=== PATIENT | female | born 1950 | race Caucasian/White ===

== ENCOUNTER 2022-10-26 17:32 | Emergency (ER) | payer MEDICARE, SELFPAY ==
[2022-10-26 17:34] VITALS: BP 132/81; PULSE 73; RESP 16; TEMP 36.2; O2SAT 98; BMI 30.9
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
[2022-10-26 21:24] VITALS: BP 155/86; PULSE 91; RESP 14; O2SAT 98
--- NOTE | 2022-10-26 21:30 | RAD_ITS ---
STUDY: X-RAY - CERVICAL SPINE REASON FOR EXAM: Female, 72 years old. pain TECHNIQUE: 3 view(s) of the cervical spine were obtained. COMPARISON: None FINDINGS: Normal anterior atlantoaxial articulation. Normal odontoid process. Normal cervical lordosis. No evidence for acute fracture or subluxation. Disc space heights well-maintained. Very minor multilevel endplate spurring. The soft tissue structures are unremarkable. RAD/Cerv Spine 2 or 3 Views IMPRESSION: Mild spondylosis. No acute fracture or other significant bony pathology Electronically Signed: Michael Weaver MD at 21:58 EST ,
[2022-10-26 22:28] VITALS: BP 144/88; PULSE 81; RESP 16; O2SAT 98
[2022-10-26] MEDS: cycloBENZAPRine HCl 10 MG Tablet PO (22:35)
[2022-10-26] MEDS: Lidocaine 5% Patch 1 PATCH TOPICAL (22:35)
== END 2022-10-26 22:40 | disposition home or self-care (01) ==
PROVIDERS: Emergency Provider Emergency Medicine; Visit Provider Emergency Medicine
DX: M54.2 Cervicalgia (principal); Z86.711 Personal history of pulmonary embolism; Z86.718 Personal history of other venous thrombosis and embolism
CPT/HCPCS: 72040; 99282

== ENCOUNTER 2022-11-01 18:24 | Emergency (ER) | payer MEDICARE, SELFPAY ==
[2022-11-01 18:26] VITALS: BP 152/134; PULSE 123; RESP 20; TEMP 36.7; O2SAT 95; BMI 31.4
--- NOTE | 2022-11-01 18:38 | EKG12_ITS ---
Test Reason : CP Blood Pressure : / mmHG Vent. Rate : 113 BPM Atrial Rate : 113 BPM P-R Int : 170 ms QRS Dur : 078 ms QT Int : 326 ms P-R-T Axes : 037 033 059 degrees QTc Int : 447 ms Sinus tachycardia Nonspecific ST abnormality Abnormal ECG Confirmed by NOLBERTO NAVARRO, ANAYELI ([id number]), website/blog editor KATHYA WALKER ([id number]) on 11/04/2022 10:03:48 AM Referred By: VALENTIN Confirmed By:ANAYELI ARVIZU MD
--- NOTE | 2022-11-01 18:40 | EDS_ITS ---
HPI History of Present Illness Chief Complaint: Shortness of Breath Detail of Chief Complaint: Shortness of breath and chest discomfort/congestion Informant: patient Onset/Context/Timing Onset: Days (2) Context: sudden Timing: Continuous Quality: Positive for Dyspnea on exertion and Wheezing; Negative for Orthopnea or PND Current Severity: Mild Maximum Severity: Severe Worsened by: Exertion Relieved by: Nothing Associated Symptoms cough and sweats; Negative for rhinorrhea, post nasal drip, ear pain, fever, sore throat, subjective, chills, clear sputum, white sputum, yellow sputum or green sputum Chest Pain: Positive for Continuous and - (Congestion full sensation right side) Narrative Narrative: Patient is a 72-year-old woman. She has a history of PE right side of her lung. She states her anticoagulant was discontinued August 2022. She denies history of cancer. She has a med port due to poor IV access. She states last week she had respiratory-like symptoms. She has mild congestion at this time. She does endorse shortness of breath. She denies headache, visual, ocular auditory symptoms. Eyes ringing or ears or decreased hearing. She denies sore throat. Minimal nonproductive cough. She does endorse nausea, vomiting and diarrhea. She denies myalgias arthralgias. She denies joint swelling. She denies skin rash. PE Risk Factors: Positive for Prior DVT or PE; Negative for Cancer, OCP + Smoking + > 35, Recent immobilization, Recent surgery or Recent travel Prior similar symptoms: Yes (Pulmonary embolus) Recent Illness/Hospitalization: No PFSH PFSH Medical History Anxiety Depression Hx of deep venous thrombosis Non-smoker Pulmonary embolism Seizures Home Medications cyclobenzaprine 10 mg tablet 10 mg PO TID PRN Muscle Spasm #10 TABLETS 10/26/22 [Rx Last Taken Unknown] hydrocodone-acetaminophen 5-325mg 5mg-325mg 1 tab PO Q6H PRN PRN Pain 3 days #10 TABLETS 10/26/22 [Rx Last Taken Unknown] apixaban 5 mg tablet (Eliquis) 5 mg PO BID #74 tabs 11/01/22 [Rx Last Taken Unknown] Allergy/AdvReac Type Severity Reaction Status Date / Time adhesive tape [tape] Allergy Rash Verified 11/01/22 18:25 butorphanol [From Stadol] Allergy Other Verified 11/01/22 18:25 Penicillins [PCN] Allergy Swelling Verified 11/01/22 18:25 sumatriptan [From Imitrex] Allergy Other Verified 11/01/22 18:25 Surgical History History of cholecystectomy History of orthopedic surgery Hx of hysterectomy Social History Smoking Status: Never smoker ROS ROS ED Constitutional Constitutional ED: Reports sweats; Denies chills, fever(s) or weight loss Eyes Eyes: Denies blurry vision, change in vision or diplopia ENT ENT ED: Reports rhinorrhea; Denies ear pain or sore throat Cardiovascular Cardiovascular: Reports chest pain and racing heartbeat; Denies orthopnea, palpitations or paroxysmal nocturnal dyspnea Respiratory/Chest Respiratory/Chest: Reports cough, dyspnea and dyspnea on exertion; Denies orthopnea, paroxysmal nocturnal dyspnea or sputum Gastrointestinal Gastrointestinal: Reports abdominal pain, diarrhea, nausea and vomiting; Denies constipation or melena Genitourinary Genitourinary ED: Denies dysuria, hematuria or urinary frequency Musculoskeletal Musculoskeletal: Denies arthralgias, back pain, myalgias or neck pain Integumentary Denies Abrasions or rash Neurologic Neurologic: Reports weakness; Denies headache(s) or paresthesias Psychiatric Psychiatric: Reports anxiety and depression; Denies suicidal ideation Endocrine Endocrinology: Denies cold intolerance or heat intolerance Hematologic/Lymphatic Hematologic/Lymphatic: Denies easy bleeding, easy bruising or lymphadenopathy EXAM Physical Exam Const Vital Signs: 11/01/22 18:26 11/01/22 18:32 11/01/22 18:46 Temperature 98.0 F 97.8 F Temperature Source Oral Temporal Pulse Rate 123 H 111 H Respiratory Rate 20 H 18 Respiratory Effort Short of Breath Respiratory Depth Shallow Respiratory Pattern Tachypnea Blood Pressure 152/134 H 133/89 H Blood Pressure Mean 140 103 Pulse Ox 95 96 Oxygen Delivery Method Room Air Room Air 11/01/22 19:31 11/01/22 20:00 Temperature 97.8 F 97.8 F Temperature Source Temporal Temporal Pulse Rate 104 H 101 H Respiratory Rate 18 18 Respiratory Effort Respiratory Depth Respiratory Pattern Blood Pressure 147/78 H 138/78 H Blood Pressure Mean 101 98 Pulse Ox 94 95 Oxygen Delivery Method Room Air Room Air Positive well nourished, well developed and obese Constitutional Narrative: Patient is tachypneic. She appears diaphoretic. General Appearance ED: well developed and pallor Nutritional Appearance: obese HEENT Reports moist mucous membranes HEENT Narrative: Head is atraumatic normocephalic. Ears normal. Nares patent with no discharge. Posterior pharynx is normal. Uvula is midline. Eyes PERRL and EOMs intact bilaterally General Eye ED: Negative for pale conjunctiva or scleral icterus Neck no lymphadenopathy, supple, no meningeal signs and no JVD Neck Narrative: Trachea is midline. There is a spur respiratory sounds that are transmitted to the lung negrete. Resp No normal respiratory effort and clear to auscultation bilaterally Auscultation: Negative for rales, rhonchi or wheezes Cardio regular rhythm, S1 normal heart sound, S2 normal heart sound and no murmurs Rate: tachycardic GI non-tender, non-distended and no masses GI Narrative: There is no palpable pulsatile mass. There is no abdominal bruit. Auscultation: hypoactive bowel sounds Palpation: soft Back/Spine no CVA tenderness and normal to inspection Extremity normal to inspection Extremity Narrative: There is no asymmetry, swelling, discoloration, leg vein distention, palpable cords or tenderness along the distribution of the deep venous system. Neuro oriented x3, CN's II-XII intact bilaterally and no sensory deficits noted Sensorium / Orientation: alert Psych mental status grossly normal Skin no wounds and No skin turgor normal Skin Narrative: Patient is diaphoretic. There is no central or peripheral sign since. General Skin Exam: pallor; Negative for jaundice Lesions: no lesions Rashes: no rashes MDM MDM MDM Narrative Medical decision making narrative: Review of prior records locate patient also has history of DVT. She presently is on no anticoagulant. She was recently seen for neck pain and placed on muscl e relaxant and opiate analgesic. Patient presents with abrupt onset of shortness of breath tachycardia with prior history of PE and DVT need to evaluate for PE. Also need to evaluate for viral illness with possible pneumonia since patient is reporting upper respiratory symptoms as well as vomiting diarrhea. This may represent COVID, influenza or lower lobe bacterial pneumonia. To evaluate patient appropriate labs were obtained i.e. CBC to evaluate for anemia, white count differential, renal function, D-dimer was obtained since she is not PERC negative. Chest x-ray to rule out pneumonia, pneumothorax etc. Patient was referred to Dr. Reji Lares since she is new to the area and does not have a physician. Lab Data Attestation: I reviewed the patient's lab results. Lab results narrative: CBC is unremarkable. Basic metabolic panel reveals hypokalemia, 3.2. Creatinine is 1.14 with a GFR of 50. Glucose is elevated 175 with a normal CO2 and anion gap lactate is upper end of normal, 2.0 D-dimer is elevated 1.6 and is elevated even after correction for age. In light of history of DVT, PE no longer on anticoagulant with shortness of breath, tachycardia will obtain a CTA of the chest to evaluate for pulmonary embolus. Labs: Laboratory Results - last 24 hr 11/01/22 11/01/22 11/01/22 18:43 18:43 18:43 WBC 7.3 RBC 5.34 Hgb 14.5 Hct 45.9 MCV 86.0 MCH 27.2 MCHC 31.6 L RDW Std Deviation 43.8 RDW Coeff of Farzad 13.9 Plt Count 240 MPV 11.6 Immature Gran % (Auto) 0.300 Neut % (Auto) 57.0 Lymph % (Auto) 28.2 [place] % (Auto) 11.4 H Eos % (Auto) 2.5 Baso % (Auto) 0.6 Absolute Neuts (auto) 4.1 Absolute Lymphs (auto) 2.05 Nucleated RBC % 0 D-Dimer Quant (PE/DVT) 1.60 H* Sodium 141 Potassium 3.2 L Chloride 110 H Carbon Dioxide 23.0 Anion Gap 8 BUN 23 H Creatinine 1.14 H Estim Creat Clear Calc 35.80 Est GFR (MDRD) Af Amer 60 Est GFR (MDRD) Non-Af 50 L BUN/Creatinine Ratio 20.2 H Glucose 175 H Lactic Acid Calcium 9.3 Troponin I High Sens 6 11/01/22 18:43 WBC RBC Hgb Hct MCV MCH MCHC RDW Std Deviation RDW Coeff of Farzad Plt Count MPV Immature Gran % (Auto) Neut % (Auto) Lymph % (Auto) [place] % (Auto) Eos % (Auto) Baso % (Auto) Absolute Neuts (auto) Absolute Lymphs (auto) Nucleated RBC % D-Dimer Quant (PE/DVT) Sodium Potassium Chloride Carbon Dioxide Anion Gap BUN Creatinine Estim Creat Clear Calc Est GFR (MDRD) Af Amer Est GFR (MDRD) Non-Af BUN/Creatinine Ratio Glucose Lactic Acid 2.0 Calcium Troponin I High Sens Radiography Diagnostic Testing: Clinical Impression(s) from Imaging Studies Chest X-Ray 11/01/22 18:55 IMPRESSION: Normal x-ray examination of the chest. Electronically Signed: Imtiaz Winston MD at 19:31 EST , Chest CTA 11/01/22 19:32 IMPRESSION: Abnormal CTA chest examination, with a right sided pulmonary embolism. N.B. : The above Results were Read Back by Imtiaz Winston MD to Naman Augustin MD, and understanding confirmed on 11/01/2022 20:56:53 (ET). Electronically Signed: Imtiaz Winston MD at 20:57 EST Reading Location ID and State: [id number] [facility] , Service support , ADDENDUM: 11/01/222103 IMPRESSION: Abnormal CTA chest examination, with a right sided pulmonary embolism. N.B. : The above Results were Read Back by Imtiaz Winston MD to Naman Augustin MD, and understanding confirmed on 11/01/2022 20:56:53 (ET). Electronically Signed: Imtiaz Winston MD at 20:57 EST , Rhythm Strip Rhythm Strip: Sinus Tach Rate: 129 Ectopy: None EKG Initial EKG: Attestation: I personally reviewed and interpreted this EKG as follows: Interpretation: Sinus Tachycardia (Ventricular rate is 113. EKG is not normal. There is nonseptic ST-T wave changes inferior leads. There is elevation in aVR which may suggest multivessel disease. There is also artifact because of her breathing. MN interval is 170 ms. Cures duration 78 ms. QT duration 326 ms. [place] is normal.) Treatment and Re-Evaluation Narrative: Patient has a small PE per radiologist. There is no heart strain. Will treat with anti- . Creatinine is 1.1 with a GFR of greater than 50. Will treat with Eliquis. Discharge Plan Triage Chief Complaint: Shortness of Breath ED Provider: Naman Augustin Dx/Rx/DC Orders Clinical Impression: Pulmonary embolus, Sinus tachycardia, Tachypnea Instructions: Pulmonary Embolism Prescriptions: New Eliquis 5 mg tablet 5 mg PO BID Qty: 74 0RF Rx Instructions: 10 mg twice a day for the first week. Then 5 mg twice a day. No Action cyclobenzaprine 10 mg tablet 10 mg PO TID PRN (Reason: Muscle Spasm) Qty: 10 0RF hydrocodone-acetaminophen 5-325 mg tablet 1 tab PO Q6H PRN PRN (Reason: Pain) 3 Days Qty: 10 0RF Primary Care Provider: Care Physician,No Primary Referrals: Abran Lares MD [Med Staff - Pitch Worker] - 1-2 Weeks Care Physician,No Primary [Primary Care Provider] - Activity Restrictions/Additional Instructions: Referred to Dr. Reji Dhillon since you do not have a local doctor in the area. Disposition Disposition: Home, Self Care
[2022-11-01 18:46] VITALS: BP 133/89; PULSE 111; RESP 18; TEMP 36.6; O2SAT 96
--- NOTE | 2022-11-01 18:55 | RAD_ITS ---
STUDY: X-RAY CHEST REASON FOR EXAM: Female, 72 years old. Chest congestion, dyspnea, TECHNIQUE: Single AP portable view of the chest. COMPARISON: None. FINDINGS: Port on the right extends to the cavoatrial junction The lungs are clear and expanded. There is no demonstrated pleural abnormality. Normal size heart. Normal mediastinum and jesse. Normal visualized pulmonary arteries. Normal visualized aortic arch and descending thoracic aorta. Normal visualized thoracic spine. Normal visualized ribs, clavicles, and shoulders. There is no demonstrated abnormality of the visualized soft tissue structures of the upper abdomen. RAD/Chest 1 View (Portable) IMPRESSION: Normal x-ray examination of the chest. Electronically Signed: Imtiaz Winston MD at 19:31 EST ,
[2022-11-01 19:00] LABS: Absolute Lymphocyte Count 2.05 X10^3/uL (0.83-4.51); Absolute Neutrophil Count 4.1 X10^3/uL (2.0-7.7); Basophil# 0.04 X10^3/uL; Basophil% 0.6 % (0-1); Eosinophil# 0.18 X10^3/uL; Eosinophils% 2.5 % (0-5); Hematocrit 45.9 % (37-47); Hemoglobin 14.5 g/dL (12.0-15.0); Lymphocyte # 2.05 X10^3/ul (0.83-4.51); Lymphocyte % 28.2 % (19-41); Mean Corp Hgb Conc 31.6 g/dL (32-36); Mean Corpuscular Hgb 27.2 pg (27.0-32.0); Mean Platelet Vol. 11.6 fl (6.2-12.0); Monocyte# 0.83 X10^3/uL; Monocyte% 11.4 % (0-10); NRBC Flagged by Analyzer 0 % (0-5); Neutrophil # 4.14 X10^3/uL (2.7-7.7); Platelet Count 240 K/mm3 (150-450); RBC Distribution Width CV 13.9 % (11.6-14.6); RBC Distribution Width SD 43.8 fl (35.1-43.9); Red Blood Count 5.34 M/mm3 (4.2-5.4); White Blood Count 7.3 K/mm3 (4.4-11.0)
[2022-11-01 19:15] LABS: Anion Gap 8 (5-15); BUN 23 mg/dL (7-18); BUN/Creat Ratio 20.2 RATIO (10-20); Calcium,Total 9.3 mg/dL (8.5-10.1); Chloride 110 mmol/L (98-107); Creatinine, Serum 1.14 mg/dL (0.55-1.02); EST Glomerular Filtration Rate 50 mL/min (>60); Est Glom Filt Rate - Afr Amer 60 mL/min (>60); Glucose 175 mg/dL (74-106); Potassium 3.2 mmol/L (3.5-5.1); Sodium Level 141 mmol/L (136-145); Troponin-I HS (w/2H Reflex) 6 pg/mL (3.0-54.0)
[2022-11-01 19:31] VITALS: BP 147/78; PULSE 104; RESP 18; TEMP 36.6; O2SAT 94
--- NOTE | 2022-11-01 19:32 | CT_ITS ---
STUDY: CTA CHEST REASON FOR EXAM: Female, 72 years old. Shortness of breath, tachycardia, elevated D-dimer RADIATION DOSAGE (If Supplied By Facility): CTDIvol = ( 16.85 ) mGy, DLP = ( 442.90 ) mGycm TECHNIQUE: The examination was performed with the intravenous administration of 100mL Isovue-370. Post-processing of the angiographic images was performed, with multiplanar reformation and 3D reconstruction. Individualized dose optimization techniques were used for this CT. COMPARISON: Chest x-ray FINDINGS: Port on the right extends to the cavoatrial junction. Normal enhancement of the main pulmonary artery and right and left pulmonary arteries. There are filling defects involving right mid and lower lung peripheral pulmonary arteries consistent with pulmonary embolism, series 2 images 75/217 and 95/217. Normal thoracic aorta and visualized great vessels. There is no demonstrated aortic dissection. Normal heart and pericardium. The right ventricle the left ventricle ratio is 0.8. Normal mediastinum. Normal hilar regions. Normal visualized trachea and bronchi. The lungs are well expanded. Normal pulmonary parenchyma. Normal pleura. Normal chest wall structures. Normal osseous structures. There are surgical clips in the gallbladder fossa consistent with a prior cholecystectomy. CT/CTA Chest W/WO Contrast IMPRESSION: Abnormal CTA chest examination, with a right sided pulmonary embolism. N.B. : The above Results were Read Back by Imtiaz Winston MD to Naman Augustin MD, and understanding confirmed on 11/01/2022 20:56:53 (ET). Electronically Signed: Imtiaz Winston MD at 20:57 EST ,
[2022-11-01 20:00] VITALS: BP 138/78; PULSE 101; RESP 18; TEMP 36.6; O2SAT 95
[2022-11-01 20:55] LABS: Reflex Troponin-HS? (from REC) Y
[2022-11-01 21:18] VITALS: BP 128/88; PULSE 68; RESP 16; TEMP 36.6; O2SAT 99
[2022-11-01] MEDS: APIXABAN 5 MG TABLET 10 MG PO (21:18)
[2022-11-01 22:54] LABS: Reflex Lactate? Y
== END 2022-11-01 21:19 | disposition home or self-care (01) ==
PROVIDERS: Emergency Provider Emergency Medicine; Visit Provider Emergency Medicine
DX: I26.99 Other pulmonary embolism without acute cor pulmonale (principal)
CPT/HCPCS: 71045; 71275; 80048; 83605; 84484; 85025; 85379; 87428; 93005; 96360; 99285; J7030; Q9967; A4216

== ENCOUNTER 2023-05-24 19:48 | Emergency (ER) | payer MEDICARE, SELFPAY ==
[2023-05-24 19:49] VITALS: BP 131/90; PULSE 120; RESP 18; TEMP 36.7; O2SAT 100; BMI 37.3
--- NOTE | 2023-05-24 20:49 | EDS_ITS ---
HPI History of Present Illness Chief Complaint: Shortness of Breath Narrative Narrative: 72-year-old female states she is a COVID long-hauler from the last time, states that she was diagnosed with COVID over 10 days ago. She started feeling symptoms on last Monday, then felt really bad on Monday. She tested positive for COVID at that time. She then tested again on the following 7 days ago. She had diarrhea that resolved. Past medical history includes depression and anxiety and she takes Eliquis for blood clots. She feels that she is dehydrated. She denies any nausea or vomiting. She had subjective fever. She states she called the nurse hotline and was sent to the emergency department with suspicion for dehydration. She states she feels generally weak. PFSH PFSH Medical History Anxiety Depression Hx of deep venous thrombosis Non-smoker Pulmonary embolism Seizures Home Medications cyclobenzaprine 10 mg tablet 10 mg PO TID PRN Muscle Spasm #10 TABLETS 10/26/22 [Rx Last Taken Unknown] apixaban 5 mg tablet (Eliquis) 5 mg PO BID #74 tabs 11/01/22 [Rx Last Taken Unknown] buspirone 5 mg tablet 5 mg PO TID 05/24/23 [History Last Taken Unknown] pregabalin 200 mg capsule 200 mg PO Q8H 05/24/23 [History Last Taken Unknown] quetiapine 100 mg tablet 100 mg PO DAILY 05/24/23 [History Last Taken Unknown] venlafaxine 150 mg capsule,extended release 24 hr 150 mg PO DAILY 05/24/23 [History Last Taken Unknown] Allergy/AdvReac Type Severity Reaction Status Date / Time adhesive tape [tape] Allergy Rash Verified 05/24/23 19:52 butorphanol [From Stadol] Allergy Other Verified 05/24/23 19:52 Penicillins [PCN] Allergy Swelling Verified 05/24/23 19:52 sumatriptan [From Imitrex] Allergy Other Verified 05/24/23 19:52 Surgical History History of cholecystectomy History of orthopedic surgery Hx of hysterectomy Previous back surgery Social History Smoking Status: Never smoker ROS ROS ED ROS Narrative Constitutional: Subjective fever, no chills. Generalized weakness. Feels dehydrated. HEENT: No sore throat. No neck pain. No loss of vision. No rhinorrhea. Cardiovascular: No chest pain. No palpitations. No pedal edema. Respiratory: No cough, occasional shortness of breath. Abdominal: No abdominal pain. No nausea. No vomiting. Diarrhea-resolved Genitourinary: No dysuria. No hematuria. Musculoskeletal: No myalgias. No arthralgias. Neurologic: No headaches. No dizziness. No lightheadedness. Skin: No rash. No change in color. Psychiatric: No depression. No anxiety. EXAM Physical Exam Narrative Exam Narrative: Afebrile. Vital signs noted. HEENT: Normocephalic. Atraumatic. PERRL, EOMI. Neck soft and supple. No point tenderness or step off. Cardiovascular: Positive tachycardia, no murmurs, rubs, or gallops appreciated. Respiratory: No tachypnea. Lungs clear to auscultation bilaterally. Gastrointestinal: Abdomen soft, nontender, with normoactive bowel sounds. No rebound or guarding. Neurological: Awake. Alert. Nonfocal, nonlateralizing. Skin: No rash. Normal color. No pallor. Musculoskeletal: No pedal edema. Full range of motion extremities. Const Vital Signs: 05/24/23 19:49 05/24/23 19:59 05/24/23 21:55 Temperature 98.1 F 98.4 F Temperature Source Temporal Oral Pulse Rate 120 H 96 Respiratory Rate 18 16 Respiratory Effort Short of Breath Respiratory Depth Normal Respiratory Pattern Normal Blood Pressure 131/90 H 110/79 Blood Pressure Mean 103 89 Pulse Ox 100 93 Oxygen Delivery Method Room Air Room Air MDM MDM MDM Narrative Medical decision making narrative: In the differential diagnosis is longstanding COVID, pneumonia, dehydration. While she may have pulmonary emboli, she is already on Eliquis for this. This is lower the differential as her pulse ox is 100% on room air. Her symptoms are resolving of COVID-19 and she is no longer having diarrhea. I do not feel that any antivirals are indicated. I will obtain a chest x-ray to see if she has a COVID-pneumonia as she complained to triage that she was short of breath at times. Additionally, will obtain CBC and BMP to look for dehydration. She was bolused IV fluids. She was administered 1 L. I reviewed her laboratory work from today and she has normal white count of 6.4, hemoglobin 13.1, hematocrit 42.1, platelet count normal at 227. Sodium is normal at 142 but she has a hypokalemia of 3.0. It seems that she has had hypokalemia in the past. BUN is normal at 11 with creatinine 1.06. Glucose is appropriately elevated at 118 with a normal anion gap of 7. Urine is negative for infection and negative for ketones. I do not feel she is profoundly dehydrated. I do not feel antibiotics are indicated. Chest x-ray in 1 view interpreted by myself independently shows no evidence of an acute pneumothorax or pneumonia. I do not feel she requires observation. Her potassium was replaced orally with 40 mill equivalents. I feel she be discharged safely home with follow-up to her primary care provider. Repeat examination shows she is no longer tachycardic and has a heart rate of 96. Return instructions to the emergency department were reviewed. Disposition is discharged home in stable condition. History & Record Review Discussion w/independent historian: Patient Additional record(s) reviewed:: Prior labs Lab Data Attestation: I reviewed the patient's lab results. Labs: Laboratory Results - last 24 hr 05/24/23 21:35 WBC 6.4 RBC 5.12 Hgb 13.1 Hct 42.1 MCV 82.2 MCH 25.6 L MCHC 31.1 L RDW Std Deviation 45.7 H RDW Coeff of Farzad 15.3 H Plt Count 227 MPV 11.7 Immature Gran % (Auto) 0.300 Neut % (Auto) 53.6 Lymph % (Auto) 34.3 [place] % (Auto) 9.6 Eos % (Auto) 1.6 Baso % (Auto) 0.6 Absolute Neuts (auto) 3.4 Absolute Lymphs (auto) 2.18 Nucleated RBC % 0 Sodium 142 Potassium 3.0 L Chloride 110 H Carbon Dioxide 25.0 Anion Gap 7 BUN 11 Creatinine 1.06 H Estim Creat Clear Calc 36.73 Est GFR (MDRD) Af Amer 66 Est GFR (MDRD) Non-Af 54 L BUN/Creatinine Ratio 10.4 Glucose 118 H Calcium 8.7 Urine Color Yellow Urine Clarity Clear Urine pH 6.0 Ur Specific [place] 1.010 Urine Protein Negative Urine Glucose (UA) Normal Urine Ketones Negative Urine Occult Blood Negative Urine Nitrite Negative Urine Bilirubin Negative Urine Urobilinogen Normal Ur Leukocyte Esterase Negative Urine RBC 0 SEEN Urine WBC 0 SEEN Ur Squamous Epith Cells 0-5 SEEN Urine Bacteria RARE Urine Mucus 0 SEEN Radiography Chest X-Ray - ED: 1 View, Read by ED Physician and No Acute Disease Discharge Plan Triage Chief Complaint: Shortness of Breath ED Provider: Matt Fishman Dx/Rx/DC Orders Clinical Impression: COVID, SOB (shortness of breath), Generalized weakness, Hypokalemia Instructions: Coronavirus Disease 2019 (COVID-19): Caring for Yourself or Others, ED Dyspnea, ED Hypokalemia, ED Weakness (Uncertain Cause) Prescriptions: No Action cyclobenzaprine 10 mg tablet 10 mg PO TID PRN (Reason: Muscle Spasm) Qty: 10 0RF Eliquis 5 mg tablet 5 mg PO BID Qty: 74 0RF Rx Instructions: 10 mg twice a day for the first week. Then 5 mg twice a day. quetiapine 100 mg tablet 100 mg PO DAILY venlafaxine 150 mg capsule,extended release 24hr 150 mg PO DAILY buspirone 5 mg tablet 5 mg PO TID pregabalin 200 mg capsule 200 mg PO Q8H Primary Care Provider: Care Physician,No Primary Referrals: Care Physician,No Primary [Primary Care Provider] - Activity Restrictions/Additional Instructions: Follow-up with your primary care physician in approximately 1 week if worsening. See if you can get an appointment before your scheduled appointment in October. Disposition Disposition: Home, Self Care
--- NOTE | 2023-05-24 21:03 | RAD_ITS ---
EXAM: XR CHEST, 1 VIEW CLINICAL INDICATION: Shortness of breath TECHNIQUE: Frontal view of the chest. COMPARISON: 11/01/2022 FINDINGS: LUNGS AND PLEURAL SPACES: No significant abnormality. No consolidation or edema. No pneumothorax. No effusion. HEART: No significant abnormality. Cardiac silhouette not enlarged. MEDIASTINUM: Central airways and mediastinal contour are unremarkable. BONES/JOINTS: Degenerative changes in the spine. SOFT TISSUES: No significant abnormality. TUBES, LINES AND DEVICES: Right-sided chest port. RAD/Chest 1 View (Portable) IMPRESSION: No acute findings in the chest. Electronically Signed: Steve Cervantes DO at 21:15 EDT ,
[2023-05-24 21:54] LABS: Mucous, Urine 0 SEEN /hpf (<or=2+); Red Blood Cells-Urine 0 SEEN /hpf (0-5); White Blood Cells 0 SEEN /hpf (0-5)
[2023-05-24 21:55] VITALS: BP 110/79; PULSE 96; RESP 16; TEMP 36.9; O2SAT 93
[2023-05-24] MEDS: 0.9% Normal Saline 1,000 ML 1000 ML IV (21:55)
[2023-05-24 21:56] LABS: Color, Urine Yellow (Yellow); Glucose, Dipstick Normal (Normal); Ketone-Dipstick Negative (Negative); Leukocyte Esterase-Dipstick Negative /ul (Negative); Nitrite-Dipstick Negative (Negative); Occult Blood-Urine Negative /ul (Negative); Protein-Dipstick Negative (Negative); Urine Bilirubin Dipstick Negative (Negative); Urine Clarity Clear (Clear); Urine Urobilinogen Normal (Normal)
[2023-05-24 21:57] LABS: Absolute Lymphocyte Count 2.18 X10^3/uL (0.83-4.51); Absolute Neutrophil Count 3.4 X10^3/uL (2.0-7.7); Basophil# 0.04 X10^3/uL; Basophil% 0.6 % (0-1); Eosinophils% 1.6 % (0-5); Hematocrit 42.1 % (37-47); Hemoglobin 13.1 g/dL (12.0-15.0); Lymphocyte # 2.18 X10^3/ul (0.83-4.51); Lymphocyte % 34.3 % (19-41); Mean Corp Hgb Conc 31.1 g/dL (32-36); Mean Corpuscular Hgb 25.6 pg (27.0-32.0); Mean Corpuscular Volume 82.2 fL (81-99); Mean Platelet Vol. 11.7 fl (6.2-12.0); Monocyte# 0.61 X10^3/uL; Monocyte% 9.6 % (0-10); NRBC Flagged by Analyzer 0 % (0-5); Neutrophil % 53.6 % (47-70); Platelet Count 227 K/mm3 (150-450); RBC Distribution Width CV 15.3 % (11.6-14.6); RBC Distribution Width SD 45.7 fl (35.1-43.9); Red Blood Count 5.12 M/mm3 (4.2-5.4); White Blood Count 6.4 K/mm3 (4.4-11.0)
[2023-05-24 22:06] LABS: Bacteria RARE /hpf (None Seen); Squamous Epithelial Cells - UA 0-5 SEEN /hpf (5-10)
[2023-05-24 22:11] LABS: Anion Gap 7 (5-15); BUN 11 mg/dL (7-18); BUN/Creat Ratio 10.4 RATIO (10-20); Calcium,Total 8.7 mg/dL (8.5-10.1); Chloride 110 mmol/L (98-107); Creatinine, Serum 1.06 mg/dL (0.55-1.02); EST Glomerular Filtration Rate 54 mL/min (>60); Est Glom Filt Rate - Afr Amer 66 mL/min (>60); Estimated Creatinine Clearance 36.73 ml/min; Glucose 118 mg/dL (74-106); Sodium Level 142 mmol/L (136-145)
[2023-05-24] MEDS: Potassium Chloride Oral Tablet 20 MEQ 40 MEQ PO (22:23)
== END 2023-05-24 22:53 | disposition home or self-care (01) ==
PROVIDERS: Emergency Provider Emergency Medicine; Visit Provider Emergency Medicine
DX: U07.1 COVID-19 (principal); R06.02 Shortness of breath; R53.1 Weakness; E87.6 Hypokalemia; F41.9 Anxiety disorder, unspecified; F32.A Depression, unspecified; Z79.01 Long term (current) use of anticoagulants; Z79.899 Other long term (current) drug therapy; Z86.711 Personal history of pulmonary embolism; Z86.718 Personal history of other venous thrombosis and embolism
CPT/HCPCS: 71045; 80048; 81001; 85025; 93005; 96360; 99284; J7030; A4216

== ENCOUNTER 2023-08-09 12:38 | Inpatient (IN) | payer MEDICARE, SELFPAY ==
[2023-08-09] VITALS (12 sets, daily range): BP systolic 92–166; BP diastolic 53–91; PULSE 87–107; RESP 14–22; TEMP 36.2–37.9; O2SAT 93–99; BMI 38.5; BMI 38.7
--- NOTE | 2023-08-09 12:41 | EKG12_ITS ---
Test Reason : CP Blood Pressure : / mmHG Vent. Rate : 105 BPM Atrial Rate : 105 BPM P-R Int : 168 ms QRS Dur : 070 ms QT Int : 362 ms P-R-T Axes : 026 029 029 degrees QTc Int : 478 ms Sinus tachycardia Possible Inferior infarct , age undetermined Abnormal ECG Confirmed by NOLBERTO NAVARRO, ANAYELI ([id number]), editor managing director KATHYA WALKER ([id number]) on 08/16/2023 11:46:28 AM Referred By: AR/RU Confirmed By:ANAYELI ARVIZU MD
--- NOTE | 2023-08-09 13:16 | CT_ITS ---
We are attempting to reach an attending provider to discuss findings. An addendum with communication details will be sent when the communication is complete. STUDY: CTA CHEST REASON FOR EXAM: Female, 72 years old. chest pain RADIATION DOSAGE (If Supplied By Facility): CTDIvol = ( 10.24 ) mGy, DLP = ( 486.86 ) mGycm TECHNIQUE: The examination was performed with the intravenous administration of IV 100mL Isovue-370. Post-processing of the angiographic images was performed, with multiplanar reformation and 3D reconstruction. Individualized dose optimization techniques were used for this CT. COMPARISON: Chest x-ray August 09, 2023. CTA chest from the 2022. FINDINGS: Normal enhancement of the main pulmonary artery and right and left pulmonary arteries. Right lower lobe segmental filling defect no evidence of right ventricular strain. Normal thoracic aorta and visualized great vessels. There is no demonstrated aortic dissection. Normal heart and pericardium. Normal mediastinum. Normal hilar regions. Normal visualized trachea and bronchi. Right lower lobe subsegmental atelectasis and ill-defined groundglass opacity right middle lobe. Normal pulmonary parenchyma. Normal pleura. Normal chest wall structures. Normal osseous structures. Normal visualized upper abdomen. CT/CTA Chest W/WO Contrast IMPRESSION: Right lower lobe pulmonary embolus. Groundglass opacity right middle lobe appears nonspecific. Electronically Signed: Billy Chan MD at 16:52 EST ,
[2023-08-09] MEDS: HYDROcodone Bitartrate/Apap 5/325 Tablet PO (13:44)
[2023-08-09 13:48] LABS: Absolute Lymphocyte Count 1.45 X10^3/uL (0.83-4.51); Absolute Neutrophil Count 5.6 X10^3/uL (2.0-7.7); Basophil# 0.03 X10^3/uL; Basophil% 0.4 % (0-1); Eosinophil# 0.07 X10^3/uL; Eosinophils% 0.9 % (0-5); Hematocrit 37.9 % (37-47); Hemoglobin 11.7 g/dL (12.0-15.0); Lymphocyte # 1.45 X10^3/ul (0.83-4.51); Lymphocyte % 19.2 % (19-41); Mean Corp Hgb Conc 30.9 g/dL (32-36); Mean Corpuscular Hgb 25.8 pg (27.0-32.0); Mean Corpuscular Volume 83.5 fL (81-99); Mean Platelet Vol. 11.9 fl (6.2-12.0); Monocyte# 0.41 X10^3/uL; Monocyte% 5.4 % (0-10); NRBC Flagged by Analyzer 0 % (0-5); Neutrophil # 5.56 X10^3/uL (2.7-7.7); Neutrophil % 73.7 % (47-70); Platelet Count 200 K/mm3 (150-450); RBC Distribution Width CV 15.4 % (11.6-14.6); RBC Distribution Width SD 46.9 fl (35.1-43.9); Red Blood Count 4.54 M/mm3 (4.2-5.4); White Blood Count 7.6 K/mm3 (4.4-11.0)
--- NOTE | 2023-08-09 14:05 | RAD_ITS ---
STUDY: X-RAY CHEST REASON FOR EXAM: Female, 72 years old. Chest pain TECHNIQUE: Single AP portable view of the chest. COMPARISON: Comparison is made with prior study dated May 24, 2023. FINDINGS: A right-sided Port-A-Cath is seen with the tip at the junction of the superior vena cava and right atrium. EKG electrodes are seen. The lungs are clear and expanded. There is no demonstrated pleural abnormality. Normal size heart. Normal mediastinum and jesse. Normal visualized pulmonary arteries. Normal visualized aortic arch and descending thoracic aorta. There are degenerative changes of the visualized thoracic spine. Normal visualized ribs, clavicles, and shoulders. There is no demonstrated abnormality of the visualized soft tissue structures of the upper abdomen. RAD/Chest 1 View (Portable) IMPRESSION: Stable examination. Electronically Signed: Ben Merrill MD at 15:03 EST ,
[2023-08-09 14:07] LABS: International Normalized Ratio 0.9; Prothrombin Time (Protime)PT. 12.5 SECONDS (11.7-14.9)
[2023-08-09 14:13] LABS: Anion Gap 11 (5-15); BUN 11 mg/dL (7-18); BUN/Creat Ratio 9.6 RATIO (10-20); Calcium,Total 7.7 mg/dL (8.5-10.1); Chloride 109 mmol/L (98-107); Creatinine, Serum 1.14 mg/dL (0.55-1.02); EST Glomerular Filtration Rate 50 mL/min (>60); Est Glom Filt Rate - Afr Amer 60 mL/min (>60); Estimated Creatinine Clearance 34.16 ml/min; Glucose 151 mg/dL (74-106); Potassium 2.6 mmol/L (3.5-5.1); Sodium Level 146 mmol/L (136-145); Troponin-I HS (w/2H Reflex) 6 pg/mL (3.0-54.0)
--- NOTE | 2023-08-09 15:22 | ED.VIS.CHEST ---
HPI History of Present Illness Chief Complaint: Chest Pain Narrative Narrative: 72-year-old female presents with chest pain and back pain that she has had since last evening. She states she developed a fever but took Tylenol today. She had cough occasionally productive of phlegm. She complains of anterior chest pain and lower lung pain bilaterally. No nausea or vomiting. No diarrhea or other symptoms. She presents because the pain in her chest and in her back. She denies any tearing sensation, no exacerbating or alleviating factors. PFSH PFSH Medical History Anxiety Depression Hx of deep venous thrombosis Non-smoker Pulmonary embolism Seizures Home Medications cyclobenzaprine 10 mg tablet 10 mg PO TID PRN Muscle Spasm #10 TABLETS 10/26/22 [Rx Last Taken Unknown] apixaban 5 mg tablet (Eliquis) 5 mg PO BID #74 tabs 11/01/22 [Rx Last Taken Unknown] buspirone 5 mg tablet 5 mg PO TID 05/24/23 [History Last Taken Unknown] pregabalin 200 mg capsule 200 mg PO Q8H 05/24/23 [History Last Taken Unknown] quetiapine 100 mg tablet 100 mg PO DAILY 05/24/23 [History Last Taken Unknown] venlafaxine 150 mg capsule,extended release 24 hr 150 mg PO DAILY 05/24/23 [History Last Taken Unknown] Allergy/AdvReac Type Severity Reaction Status Date / Time adhesive tape [tape] Allergy Rash Verified 08/09/23 12:40 butorphanol [From Stadol] Allergy Other Verified 08/09/23 12:40 Penicillins [PCN] Allergy Swelling Verified 08/09/23 12:40 sumatriptan [From Imitrex] Allergy Other Verified 08/09/23 12:40 Surgical History History of cholecystectomy History of orthopedic surgery Hx of hysterectomy Previous back surgery Social History Smoking Status: Never smoker ROS ROS ED ROS Narrative Constitutional: No fever, no chills. HEENT: No sore throat. No neck pain. No loss of vision. No rhinorrhea. Cardiovascular: Positive anterior chest pain. No palpitations. No pedal edema. Respiratory: No cough, no shortness of breath. Abdominal: No abdominal pain. No nausea. No vomiting. Genitourinary: No dysuria. No hematuria. Musculoskeletal: No myalgias. No arthralgias. Positive mid to lower thoracic back pain. Neurologic: No headaches. No dizziness. No lightheadedness. Skin: No rash. No change in color. Psychiatric: No depression. No anxiety. EXAM Physical Exam Narrative Exam Narrative: Afebrile. Vital signs noted. HEENT: Normocephalic. Atraumatic. PERRL, EOMI. Neck soft and supple. No point tenderness or step off. Cardiovascular: Intermittent tachycardia. No murmurs, rubs, or gallops appreciated. Respiratory: No tachypnea. Lungs clear to auscultation bilaterally. Gastrointestinal: Abdomen soft, nontender, with normoactive bowel sounds. No rebound or guarding. Neurological: Awake. Alert. Nonfocal, nonlateralizing. Skin: No rash. Normal color. No pallor. Musculoskeletal: No pedal edema. Full range of motion extremities. Const Vital Signs: 08/09/23 12:38 08/09/23 12:56 08/09/23 12:56 Temperature 97.2 F L Temperature Source Temporal Pulse Rate 107 H 101 H Respiratory Rate 16 22 H Respiratory Effort Blood Pressure 127/84 H 135/75 H Blood Pressure Mean 98 95 Pulse Ox 96 96 94 Oxygen Delivery Method Room Air Room Air Room Air 08/09/23 12:58 08/09/23 14:00 Temperature Temperature Source Pulse Rate 106 H Respiratory Rate 20 H Respiratory Effort Short of Breath Blood Pressure 92/57 L Blood Pressure Mean 68 Pulse Ox 96 Oxygen Delivery Method Room Air Heart Score History: Slightly/Non-Suspicious ECG: Normal Age: >/= 65 years Risk Factors: 1 or 2 Risk Factors Troponin: </= Normal Limit Score: 3 MDM MDM MDM Narrative Medical decision making narrative: Chest pain protocol orders were entered. Concern would be for ACS versus aortic dissection versus pulmonary embolism versus pneumonia. I have low concern for aortic dissection as she does not have tearing back pain and she has equal pulses bilaterally. EKG obtained and interpreted by myself independently shows sinus tachycardia at 105 bpm without ectopy or acute ST changes. No significant change from May 24, 2023. She complained of pain with coughing as well. She was given 1 [place] tablet here in the emergency department. I reviewed her laboratory work and she has a normal white count of 7.6, hemoglobin stable at 11.7. Platelet count normal at 200. Coagulation studies are negative with an INR of 0.9, BMP shows sodium slightly elevated at 146 with potassium low at 2.6. This will be replaced orally with 40 mill equivalents and intravenously with 40 mill equivalents. She seems to have a chronically low potassium but she states she is not on diuretics. Chloride is slightly elevated at 109 consistent with mild dehydration with a BUN of 11 and a creatinine of 1.14. Glucose is appropriately elevated at 151 and she has a normal anion gap of 11. Initial high-sensitivity troponin is 6. Chest x-ray in 1 view interpreted by myself independently shows no evidence of pneumonia or pneumothorax. No feel antibiotics are indicated. However given her tachycardia CTA will be obtained and is currently pending. Upon repeat examination, she is resting comfortably looking at her cellular telephone. I reviewed her medications and she is already on Eliquis so I have lower suspicion for pulmonary embolism. Her potassium will be replaced as mentioned before hand. Afterwards, I do feel she would be able to be discharged safely home with follow-up. This is pending reevaluation by the oncoming physician Dr. Florez. Disposition is pending. Patient is in stable condition. Lab Data Labs: Laboratory Results - last 24 hr 08/09/23 13:35 WBC 7.6 RBC 4.54 Hgb 11.7 L Hct 37.9 MCV 83.5 MCH 25.8 L MCHC 30.9 L RDW Std Deviation 46.9 H RDW Coeff of Farzad 15.4 H Plt Count 200 MPV 11.9 Immature Gran % (Auto) 0.400 Neut % (Auto) 73.7 H Lymph % (Auto) 19.2 [place] % (Auto) 5.4 Eos % (Auto) 0.9 Baso % (Auto) 0.4 Absolute Neuts (auto) 5.6 Absolute Lymphs (auto) 1.45 Nucleated RBC % 0 PT 12.5 INR 0.9 Sodium 146 H Potassium 2.6 L* Chloride 109 H Carbon Dioxide 26.0 Anion Gap 11 BUN 11 Creatinine 1.14 H Estim Creat Clear Calc 34.16 Est GFR (MDRD) Af Amer 60 Est GFR (MDRD) Non-Af 50 L BUN/Creatinine Ratio 9.6 L Glucose 151 H Calcium 7.7 L Troponin I High Sens 6 Radiography Diagnostic Testing: Clinical Impression(s) from Imaging Studies Chest X-Ray 08/09/23 14:05 IMPRESSION: Stable examination. Electronically Signed: Ben Merrill MD at 15:03 EST , Discharge Plan Triage Chief Complaint: Chest Pain ED Provider: Matt Fishman Dx/Rx/DC Orders Prescriptions: No Action cyclobenzaprine 10 mg tablet 10 mg PO TID PRN (Reason: Muscle Spasm) Qty: 10 0RF Eliquis 5 mg tablet 5 mg PO BID Qty: 74 0RF Rx Instructions: 10 mg twice a day for the first week. Then 5 mg twice a day. quetiapine 100 mg tablet 100 mg PO DAILY venlafaxine 150 mg capsule,extended release 24hr 150 mg PO DAILY buspirone 5 mg tablet 5 mg PO TID pregabalin 200 mg capsule 200 mg PO Q8H Primary Care Provider: Care Physician,No Primary Referrals: Care Physician,No Primary [Primary Care Provider] -
[2023-08-09 15:39] LABS: Reflex Troponin-HS? (from REC) Y
[2023-08-09] MEDS: Potassium Chloride Oral Tablet 20 MEQ 40 MEQ PO (15:42)
[2023-08-09] MEDS: KCL 40mEq in 0.9% NS 40 MEQ/1,000 ML IV.SOLN 125 MEQ IV ×2 (15:54→23:57)
[2023-08-09 16:33] LABS: Troponin-I HS 5 pg/mL (3.0-54.0)
[2023-08-09] MEDS: oxyCODONE 5 MG Tablet PO (17:37)
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
[2023-08-09] MEDS: APIXABAN 5 MG TABLET 10 MG PO (18:13)
[2023-08-09 18:47] LABS: BNP,B-Type NATRIURETIC PEPTIDE 38.6 pg/mL (0-100)
[2023-08-09] MEDS: 0.9% Saline Lock 10 ML Syringe IV ×2 (20:29→23:57)
[2023-08-09 20:34] LABS: Procalcitonin 0.05 ng/mL (0.00-0.09)
[2023-08-09] MEDS: guaiFENesin 10 ML UDC (200MG/10ML) 20 ML PO (20:52)
[2023-08-09] MEDS: Pregabalin 50 MG Capsule 200 MG PO (20:53)
[2023-08-09] MEDS: busPIRone 5 MG Tablet PO (20:53)
[2023-08-09] MEDS: cycloBENZAPRine HCl 10 MG Tablet PO (20:54)
[2023-08-09] MEDS: QUEtiapine 100 MG Tablet PO (20:54)
[2023-08-09] MEDS: MELATONIN 3 MG TABLET PO (20:54)
[2023-08-10] MEDS: oxyCODONE 5 MG Tablet PO ×3 (00:04→15:06)
[2023-08-10 02:14] VITALS: BMI 39.3
[2023-08-10 03:12] VITALS: BP 116/80; PULSE 82; RESP 18; TEMP 36.4; O2SAT 95
[2023-08-10 05:35] LABS: Absolute Lymphocyte Count 2.16 X10^3/uL (0.83-4.51); Absolute Neutrophil Count 5.8 X10^3/uL (2.0-7.7); Basophil# 0.03 X10^3/uL; Basophil% 0.3 % (0-1); Eosinophil# 0.09 X10^3/uL; Hematocrit 34.4 % (37-47); Hemoglobin 10.5 g/dL (12.0-15.0); Lymphocyte # 2.16 X10^3/ul (0.83-4.51); Lymphocyte % 24.7 % (19-41); Mean Corp Hgb Conc 30.5 g/dL (32-36); Mean Corpuscular Hgb 25.9 pg (27.0-32.0); Mean Corpuscular Volume 84.9 fL (81-99); Mean Platelet Vol. 12.5 fl (6.2-12.0); NRBC Flagged by Analyzer 0 % (0-5); Neutrophil # 5.76 X10^3/uL (2.7-7.7); Neutrophil % 65.8 % (47-70); POSITIVE COUNT YES; Platelet Count 152 K/mm3 (150-450); RBC Distribution Width CV 15.8 % (11.6-14.6); RBC Distribution Width SD 48.3 fl (35.1-43.9); Red Blood Count 4.05 M/mm3 (4.2-5.4); White Blood Count 8.8 K/mm3 (4.4-11.0)
[2023-08-10 06:09] LABS: Differential Indicated SCAN CRITERIA MET
[2023-08-10] MEDS: busPIRone 5 MG Tablet PO ×3 (06:20→21:33)
[2023-08-10] MEDS: Pregabalin 50 MG Capsule 200 MG PO ×3 (06:20→21:33)
[2023-08-10 06:39] LABS: Differential Comment SCANNED; Platelet Estimate ADEQUATE (ADEQ); Platelet Morphology LARGE
[2023-08-10] MEDS: Budesonide Respules 0.5 MG/2 ML AMPUL.NEB. INHALATION ×2 (07:04→20:19)
[2023-08-10 07:05] VITALS: PULSE 75; RESP 18; O2SAT 96
[2023-08-10 07:51] LABS: ALB/GLOB Ratio 0.9 RATIO (0.9-2.4); AST(SGOT) 55 U/L (15-37); Alanine Aminotransfer ALT/SGPT 37 U/L (13-56); Albumin, Serum 2.6 g/dL (3.2-5.0); Alkaline Phosphatase 164 U/L (45-117); Anion Gap 2 (5-15); BUN 12 mg/dL (7-18); BUN/Creat Ratio 11.7 RATIO (10-20); Calcium,Total 7.5 mg/dL (8.5-10.1); Chloride 114 mmol/L (98-107); Creatinine, Serum 1.03 mg/dL (0.55-1.02); EST Glomerular Filtration Rate 56 mL/min (>60); Est Glom Filt Rate - Afr Amer 68 mL/min (>60); Glucose 114 mg/dL (74-106); Potassium 4.2 mmol/L (3.5-5.1); Protein, Total 5.6 g/dL (6.4-8.2); Sodium Level 144 mmol/L (136-145)
[2023-08-10] MEDS: KCL 40mEq in 0.9% NS 40 MEQ/1,000 ML IV.SOLN 125 MEQ IV ×2 (08:23→16:32)
[2023-08-10 08:37] VITALS: BP 131/65; PULSE 87; RESP 17; TEMP 36.8; O2SAT 96
[2023-08-10] MEDS: APIXABAN 5 MG TABLET 10 MG PO ×2 (08:45→21:34)
[2023-08-10] MEDS: Venlafaxine XR 150 MG Capsule PO (08:46)
[2023-08-10 09:13] LABS: Hemoglobin A1c 5.6 % (3.8-5.6)
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
[2023-08-10 15:01] VITALS: BP 136/61; PULSE 85; RESP 17; TEMP 36.8; O2SAT 97
--- NOTE | 2023-08-10 16:00 | PCM.PN.HOSP ---
Reason for Visit Reason for Visit: Diagnoses Other pulmonary embolism without acute cor pulmonale (08/09/23) Subjective Subjective Patient admitted yesterday for acute right lower lobe PE with symptoms of cough and mild chest pain. No acute events overnight. Patient seen at bedside this morning. Sitting comfortably in bed, conversing normally, no distress. Satting well on room air, no increased work of breathing noted. Patient reports continued cough and chest pain, similar to yesterday. States her symptoms are very manageable at this time. She does feel somewhat weaker than her baseline at this time. She also states she has had mild difficulty swallowing due to significant throat pain due to recent coughing. She otherwise denies any fevers or chills or shortness of breath. No other acute concerns this morning. Objective Data Objective Data Vital Signs: Vital Signs Temp Pulse Resp BP Pulse Ox O2 Del Method 98.2 F 85 17 136/61 H 97 Room Air 08/10/23 15:01 08/10/23 15:01 08/10/23 15:01 08/10/23 15:01 08/10/23 15:01 08/10/23 15:08 Oxygen Delivery Method Room Air Weight: 94.5 kg Body Mass Index (BMI) 39.3 Intake & Output: Intake and Output for Last 24 Hours 08/08/23 08/09/23 08/10/23 23:59 23:59 23:59 Intake Total 1000 / 1000 1720 / 1720 Balance 1000 / 1000 1720 / 1720 Lab / Micro Data 08/10/23 05:20 08/10/23 05:20 Labs: Laboratory Results - last 24 hr 08/09/23 13:35: B-Natriuretic Peptide 38.6 08/09/23 16:06: Magnesium 2.0, Troponin I High Sens 5 08/09/23 19:39: Procalcitonin 0.05 08/10/23 05:20: WBC 8.8, RBC 4.05 L, Hgb 10.5 L, Hct 34.4 L, MCV 84.9, MCH 25.9 L, MCHC 30.5 L, RDW Std Deviation 48.3 H, RDW Coeff of Farzad 15.8 H, Plt Count 152, MPV 12.5 H, Immature Gran % (Auto) 0.200, Neut % (Auto) 65.8, Lymph % (Auto) 24.7, Yell % (Auto) 8.0, Eos % (Auto) 1.0, Baso % (Auto) 0.3, Absolute Neuts (auto) 5.8, Absolute Lymphs (auto) 2.16, Nucleated RBC % 0, Differential Comment SCANNED, Platelet Estimate ADEQUATE, Plt Morphology Comment LARGE, Sodium 144, Potassium 4.2, Chloride 114 H, Carbon Dioxide 28.0, Anion Gap 2 L, BUN 12, Creatinine 1.03 H, Estim Creat Clear Calc 37.80, Est GFR (MDRD) Af Amer 68, Est GFR (MDRD) Non-Af 56 L, BUN/Creatinine Ratio 11.7, Glucose 114 H, Hemoglobin A1c 5.6, Calcium 7.5 L, Total Bilirubin 0.40, AST 55 H, ALT 37, Alkaline Phosphatase 164 H, Total Protein 5.6 L, Albumin 2.6 L, Globulin 3.0, Albumin/Globulin Ratio 0.9 Micro: Microbiology 08/09/23 22:25 Mucosa - Nasopharyngeal Coronavirus COVID-19 PCR - Final 08/09/23 22:25 Mucosa - Nasopharyngeal Respiratory Panel (PCR) - Final 08/09/23 13:35 Nasal Secretion SARS-CoV-2 & FLU Antigen (Rapid) - Final Radiography Diagnostic Testing: Radiology Impression Chest CTA 08/09/23 13:16 IMPRESSION: Right lower lobe pulmonary embolus. Groundglass opacity right middle lobe appears nonspecific. Electronically Signed: Billy Chan MD at 16:52 EST Reading Location ID and State: [address] [place] [address] Tel , Service support , ADDENDUM: 08/09/23 1718 IMPRESSION: Right lower lobe pulmonary embolus. Groundglass opacity right middle lobe appears nonspecific. N.B. : The above Results were Read Back by Billy Chan MD to Violeta Florez MD, and understanding confirmed on 08/09/2023 17:11:18 (ET). Electronically Signed: Billy Chan MD at 16:52 EST , Physical Exam Const alert, oriented x3 and no apparent distress Constitutional Narrative: Elderly female, obese, chronically ill-appearing, sitting comfortably bed, conversing normally, no acute distress. General Appearance: cooperative and comfortable HEENT normocephalic, head/scalp atraumatic, hearing grossly normal bilaterally, nasal mucous membranes and turbinates normal and moist oral mucous membranes Eyes PERRL, EOMs intact bilaterally and conjunctivae normal Neck full ROM, no lymphadenopathy and supple Lymph Lymphatic: no lymphadenopathy noted Chest inspection of chest normal Resp Resp Narrative: Mild crackles noted in upper airways bilaterally, mildly decreased breath sounds at bilateral lung bases. Satting well on room air, no increased work of breathing noted. Cardio regular rate, regular rhythm, no murmurs and peripheral pulses 2+ throughout GI normal to inspection, nondistended, normoactive bowel sounds, soft to palpation, non-tender and non-distended Back/Spine normal ROM Extremity normal to inspection, full ROM and no pedal edema Skin no rashes or lesions noted Psych mental status grossly normal Assessment & Plan Assessment/Plan (1) Acute pulmonary embolism: PLAN: Plan Patient is a 72-year-old female who presented to [facility] ED on 08/09/23 with cough and mild chest pain. 1. Acute pulmonary embolism, low risk Suspected secondary to fairly recent discontinuation of Eliquis for previous PE as noted below. CTA chest on admit showed right lower lobe PE, no right heart strain noted, mild ground glass opacity in right middle lobe. EKG without acute findings, infectious work-up negative to this point. Stable, satting well on room air at rest. ? Initiated on PE dosing of Eliquis 10 mg twice daily on admission, will continue this. Treat chest pain and cough symptomatically. No need for TTE at this time patient is very stable, no right heart strain noted on CT imaging. 2. Mild debility Patient reports worsening generalized weakness over the past 1 to 2 weeks. Has been able to do things for herself at home but has become fatigued easily. May be secondary to acute PE as noted above, unclear if possible chronic component to her weakness. ? PT/OT/case management consulted. 3. Hypokalemia, improved ? Potassium 2.6 on admission. Improved with repletion. Monitor. Chronic medical conditions: ? 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 Self discontinued Eliquis in 02/2023, unclear if she was meant to discontinue anticoagulation or not at that time. Will need lifelong anticoagulation going forward. ? CKD stage III: Creatinine 1.14 on admit, at baseline. ? Seizure disorder: Continue home pregabalin. ? Anxiety/depression: Continue home venlafaxine, Seroquel, BuSpar. ? Obesity: BMI 39 on admit. Encouraged lifestyle modifications. DVT prophylaxis: Eliquis CODE STATUS: Full code, verified Expected disposition: Home, tomorrow Total clinical time spent by myself addressing the patient's medical issues, reviewing all the data, and collaborating with patient's care team: 35 minutes. Charges/Coding Visit Charges Inpatient E&M: 25474 Subs Hosp L2
[2023-08-10] MEDS: 0.9% Saline Lock 10 ML Syringe IV (18:45)
[2023-08-10 20:19] VITALS: PULSE 84; RESP 16
[2023-08-10 21:29] VITALS: BP 147/76; PULSE 86; RESP 18; TEMP 36.6; O2SAT 96
[2023-08-10] MEDS: QUEtiapine 100 MG Tablet PO (21:33)
[2023-08-10] MEDS: cycloBENZAPRine HCl 10 MG Tablet PO (21:33)
[2023-08-10] MEDS: MELATONIN 3 MG TABLET PO (21:34)
[2023-08-11] MEDS: KCL 40mEq in 0.9% NS 40 MEQ/1,000 ML IV.SOLN 125 MEQ IV (00:57)
[2023-08-11] MEDS: oxyCODONE 5 MG Tablet PO ×2 (01:56→10:02)
[2023-08-11 03:40] VITALS: BP 136/69; PULSE 86; RESP 18; TEMP 36.8; O2SAT 95
[2023-08-11 05:59] VITALS: BMI 40.3
[2023-08-11] MEDS: Pregabalin 50 MG Capsule 200 MG PO ×2 (06:08→13:26)
[2023-08-11] MEDS: busPIRone 5 MG Tablet PO ×2 (06:08→13:26)
[2023-08-11] MEDS: Budesonide Respules 0.5 MG/2 ML AMPUL.NEB. INHALATION (07:12)
[2023-08-11 07:15] VITALS: PULSE 77; RESP 14; O2SAT 96
[2023-08-11 09:06] VITALS: BP 122/64; PULSE 78; RESP 14; TEMP 36.5; O2SAT 95
[2023-08-11] MEDS: Venlafaxine XR 150 MG Capsule PO (10:03)
[2023-08-11] MEDS: APIXABAN 5 MG TABLET 10 MG PO (10:04)
[2023-08-11 10:10] LABS: Hematocrit 33.6 % (37-47); Hemoglobin 10.2 g/dL (12.0-15.0); Mean Corp Hgb Conc 30.4 g/dL (32-36); Mean Corpuscular Hgb 25.8 pg (27.0-32.0); Mean Corpuscular Volume 85.1 fL (81-99); Mean Platelet Vol. 12.1 fl (6.2-12.0); Platelet Count 168 K/mm3 (150-450); RBC Distribution Width CV 15.9 % (11.6-14.6); Red Blood Count 3.95 M/mm3 (4.2-5.4); White Blood Count 4.5 K/mm3 (4.4-11.0)
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
[2023-08-11 12:24] LABS: Anion Gap 3 (5-15); BUN 9 mg/dL (7-18); BUN/Creat Ratio 11.5 RATIO (10-20); Calcium,Total 8.1 mg/dL (8.5-10.1); Chloride 117 mmol/L (98-107); Creatinine, Serum 0.78 mg/dL (0.55-1.02); EST Glomerular Filtration Rate 77 mL/min (>60); Est Glom Filt Rate - Afr Amer 93 mL/min (>60); Estimated Creatinine Clearance 38.94 ml/min; Glucose 95 mg/dL (74-106); Potassium 4.7 mmol/L (3.5-5.1); Sodium Level 144 mmol/L (136-145)
[2023-08-11 13:29] VITALS: BP 126/82; PULSE 98; RESP 14; TEMP 37; O2SAT 95
--- NOTE | 2023-08-11 14:13 | PHA.DC_ITS ---
Pharmacy [facility] has performed discharge medication reconciliation and counseling for this patient. The patient was counseled on the following discharge medications and changes in medications for homegoing were reviewed. 1. OXYCODONE 2. ELIQUIS The Reason for Use, instructions for use, and potential side effects were reviewed for all new medications. The patient's questions regarding all of their medications were answered. The patient was able to verbally demonstrate an understanding of their discharge medications. The patient's discharge medication list was reviewed for discrepancies and discrepancies were resolved. The patient was counselled by Jabier Washington, DagoD candidate. Patient expressed concerns of not taking Eliquis d/t cost. Discussed with MATTHEW JJ and they have already been in contact with attending MD to discuss alternatives so she will be able to take medication to treat the PE. Since MD already notified and aware, pharmacy will not contact him at this time. Medications at Discharge Home Medications cyclobenzaprine 10 mg tablet 10 mg PO TID PRN Muscle Spasm #10 TABLETS 10/26/22 buspirone 5 mg tablet 5 mg PO TID anxiety 05/24/23 pregabalin 200 mg capsule 200 mg PO Q8H fibromyalgia 05/24/23 quetiapine 100 mg tablet 100 mg PO QHS insomnia 05/24/23 venlafaxine 150 mg capsule,extended release 24 hr 150 mg PO DAILY 05/24/23 melatonin 10 mg capsule 10 mg PO QHS insomnia 08/09/23 apixaban 5 mg tablet (Eliquis) 5 mg PO BID PE #74 tabs 08/11/23 oxycodone 5 mg tablet 5 mg PO Q6H PRN PRN Pain Score 4-10 3 days #12 tabs 08/11/23
--- NOTE | 2023-08-11 15:00 | CASEMGMT ---
Patient discharging today and has order for Eliquis. MATTHEW JJ called [facility] and copay is $224.07. Eliquis savings card provided to pharmacist over the phone, patient has used Eliquis card in the past. MATTHEW JJ updated hospitalist and sent script for Xarelto. MATTHEW JJ called [facility] and provided Xarelto savings card with $0 copay. Patient does not have PCP appt till October to get established. Patient agreeable to appt to be scheduled with Sejal Yates. MATTHEW JJ had PCU secretary receptionist to schedule appt. Patient had no further questions or concerns at this time.
== END 2023-08-11 15:46 | disposition home or self-care (01) | DRG 176 ==
LOC: ED 15:03 → PCU 18:14
PROVIDERS: Admitting Provider Family Medicine; Emergency Provider Emergency Medicine; Visit Provider Hospitalist
DX: I26.99 Other pulmonary embolism without acute cor pulmonale (principal); E66.9 Obesity, unspecified; N18.30 Chronic kidney disease, stage 3 unspecified; G40.909 Epilepsy, unspecified, not intractable, without status epilepticus; F32.A Depression, unspecified; E87.6 Hypokalemia; F41.9 Anxiety disorder, unspecified; R53.81 Other malaise; Z68.39 Body mass index [BMI] 39.0-39.9, adult; Z77.22 Contact with and (suspected) exposure to environmental tobacco smoke (acute) (chronic); Z59.86 Financial insecurity; Z79.01 Long term (current) use of anticoagulants; Z79.899 Other long term (current) drug therapy; Z91.410 Personal history of adult physical and sexual abuse; Z86.711 Personal history of pulmonary embolism; Z86.718 Personal history of other venous thrombosis and embolism; Z80.1 Family history of malignant neoplasm of trachea, bronchus and lung
CPT/HCPCS: 36415; 36591; 71045; 71275; 80048; 80053; 83036; 83735; 83880; 84145; 84484; 85025; 85027; 85610; 87428; 87633; 87635; 92610; 93005; 94640; 94668; 97166; 97535; 99285; Q9967; A4216

== ENCOUNTER 2023-10-29 15:24 | Inpatient (IN) | payer MEDICARE, SELFPAY ==
[2023-10-29] VITALS (10 sets, daily range): BP systolic 91–144; BP diastolic 67–88; PULSE 94–148; RESP 15–26; TEMP 36.6–37.3; O2SAT 93–97; BMI 38.6; BMI 36.9
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
--- NOTE | 2023-10-29 15:50 | CT_ITS ---
EXAM: CT CHEST, ABDOMEN AND PELVIS WITHOUT INTRAVENOUS CONTRAST CLINICAL INDICATION: fall, trauma, left rib pain, fever TECHNIQUE: Helically acquired images were obtained of the chest, abdomen and pelvis without intravenous contrast. This CT exam was performed using one or more of the following dose reduction techniques: automated exposure control, adjustment of the mA and/or kV according to patient size, and/or use of iterative reconstruction technique. RADIATION DOSE: CTDIvol = 21.33 mGy, DLP = 2005.13 mGy-cm COMPARISON: No relevant prior studies available. FINDINGS: CHEST: LUNGS AND PLEURAL SPACES: Right upper lobe infiltrate suggesting pneumonia. There is no pneumothorax. There is no demonstrated pleural abnormality. No mass. HEART: There are calcifications of the coronary arteries. Heart size is normal. No pericardial effusion. MEDIASTINUM: Unremarkable. No mediastinal or hilar adenopathy. Esophagus is unremarkable. No hiatal hernia. THYROID: Unremarkable. No thyroid lesions. ABDOMEN: LIVER: Unremarkable. Normal liver. GALLBLADDER AND BILE DUCTS: There are surgical clips in the gallbladder fossa consistent with a prior cholecystectomy. No intra- or extrahepatic biliary ductal dilation. PANCREAS: Unremarkable. No focal cystic mass. Normal pancreas. SPLEEN: Unremarkable. Normal spleen. ADRENALS: Unremarkable. Normal bilateral adrenal glands. KIDNEYS AND URETERS: Unremarkable. Normal renal size and position. No hydronephrosis. No acute findings of the right kidney. No acute findings of the left kidney. STOMACH AND BOWEL: Unremarkable. No stomach or bowel distention. No focal inflammatory change. Normal visualized stomach. Normal small intestine. Normal colon. PELVIS: APPENDIX: There is non-visualization of the appendix. BLADDER: Unremarkable. Normal urinary bladder. REPRODUCTIVE: There is absence of the uterus consistent with a prior hysterectomy. CHEST, ABDOMEN and PELVIS: INTRAPERITONEAL SPACE: Unremarkable. No ascites or other fluid collection. No free air. BONES/JOINTS: There are degenerative changes of the shoulders. There are multi-level degenerative changes of the thoracic spine. No suspicious lytic or blastic abnormality. Normal osseous structures. SOFT TISSUES: There is an umbilical hernia containing fat. VASCULATURE: There is atherosclerotic calcification of the aortic arch with tortuosity and elongation of the aortic arch and descending thoracic aorta. There are calcifications of the abdominal aorta. This is consistent for atherosclerotic disease. There is no abdominal aortic aneurysm. Normal pulmonary arteries. LYMPH NODES: Unremarkable. No enlarged lymph nodes. TUBES, LINES AND DEVICES: Right ported catheter. CT/CT Chest, Abd, Pelvis WO Cont IMPRESSION: Right upper lobe infiltrate suggesting pneumonia. Electronically Signed: Enrique Gaytan MD at 18:13 EST Reading Location ID and State: [facility] / [place] , Service support ,
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
[2023-10-29] MEDS: 0.9% Normal Saline (1000mL) 1,000 ML 999 ML IV ×3 (16:00→23:27)
[2023-10-29 16:32] LABS: Absolute Lymphocyte Count 1.11 X10^3/uL (0.83-4.51); Absolute Neutrophil Count 9.3 X10^3/uL (2.0-7.7); Basophil# 0.03 X10^3/uL; Basophil% 0.3 % (0-1); Hematocrit 40.1 % (37-47); Hemoglobin 12.6 g/dL (12.0-15.0); Lymphocyte # 1.11 X10^3/ul (0.83-4.51); Lymphocyte % 9.8 % (19-41); Mean Corp Hgb Conc 31.4 g/dL (32-36); Mean Corpuscular Volume 79.7 fL (81-99); Mean Platelet Vol. 12.1 fl (6.2-12.0); Monocyte# 0.77 X10^3/uL; Monocyte% 6.8 % (0-10); NRBC Flagged by Analyzer 0 % (0-5); Neutrophil # 9.34 X10^3/uL (2.7-7.7); Neutrophil % 82.7 % (47-70); Platelet Count 222 K/mm3 (150-450); RBC Distribution Width CV 15.6 % (11.6-14.6); RBC Distribution Width SD 44.2 fl (35.1-43.9); Red Blood Count 5.03 M/mm3 (4.2-5.4); White Blood Count 11.3 K/mm3 (4.4-11.0)
[2023-10-29 16:39] LABS: International Normalized Ratio 1.2; Partial Thromboplast Time 27.2 Seconds (24.1-36.2); Prothrombin Time (Protime)PT. 14.8 SECONDS (11.7-14.9)
--- OUTSIDE RECORDS SUMMARY | 2023-10-29 16:41 | XMS RPT_ITS | CCD ---
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 AUTHOR'S ORGANIZ ATION 10/20/2022 [facility] DATE CREATED AUTHOR AUTHOR'S ORGANIZ ATION 09/03/2023 [facility] DATE CREATED AUTHOR AUTHOR'S ORGANIZ ATION 09/03/2023 [facility] Care Teams (unrecognized sec tion and content) Interventional Nurse Relationship Specialty Start Date End Date Celina Bee MD [address] [place], [place] [id number] PCP - General Family Practice 07/22/20 Interventional Nurse Relationship Specialty Start Date End Date Celina Bee MD [address] [place], [place] [id number] PCP - General Family Practice 07/22/20 Interventional Nurse Relationship Specialty Start Date End Date Celina Bee MD [address] [place], [place] [id number] PCP - General Family Practice 07/22/20 Interventional Nurse Relationship Specialty Start Date End Date Celina Bee MD [address] [place], [place] [id number] PCP - General Family Practice 07/22/20 Interventional Nurse Relationship Specialty Start Date End Date Celina Bee MD [address] [place] [address] PCP - General Family Medicine 07/22/20 Interventional Nurse Relationship Specialty Start Date End Date Celina Bee MD [address] [place] [address] PCP - General Family Medicine 07/22/20 Interventional Nurse Relationship Specialty Start Date End Date Celina Bee MD [address] [place] [address] PCP - General Family Medicine 07/22/20 Interventional Nurse Relationship Specialty Start Date End Date Celina Bee MD [address] [place] [address] PCP - General Family Medicine 07/22/20 Interventional Nurse Relationship Specialty Start Date End Date Celina Bee MD [address] [place] [address] PCP - General Family Medicine 07/22/20 Interventional Nurse Relationship Specialty Start Date End Date Celina Bee MD [address] [place] [address] PCP - General Family Medicine 07/22/20 Interventional Nurse Relationship Specialty Start Date End Date Celina Bee MD [address] [place] [address] PCP - General Family Medicine 07/22/20 Interventional Nurse Relationship Specialty Start Date End Date Celina Bee MD [address] [place] [address] PCP - General Family Medicine 07/22/20 Nichol Arrieta, MATTHEW [address] [place] [address] Primary Care Vice President Client Services 08/15/22 Interventional Nurse Relationship Specialty Start Date End Date Celina Bee MD [address] [place] [address] PCP - General Family Medicine 07/22/20 Nichol Arrieta, MATTHEW [address] [place] [address] Primary Care Vice President Client Services 08/19/22 09/18/22 Interventional Nurse Relationship Specialty Start Date End Date Celina Bee MD [address] [place] [address] PCP - General Family Medicine 07/22/20 Nichol Arrieta, MATTHEW [address] [place] [address] Primary Care Vice President Client Services 08/19/22 09/18/22 Interventional Nurse Relationship Specialty Start Date End Date Celina Bee MD [address] [place] [address] PCP - General Family Medicine 07/22/20 Nichol Arrieta RN [address] [place] [address] Primary Care Vice President Client Services 08/19/22 09/18/22 Interventional Nurse Relationship Specialty Start Date End Date Celina Bee MD [address] [place] [address] PCP - General Family Medicine 07/22/20 Nichol Arrieta, MATTHEW [address] [place] [address] Primary Care Vice President Client Services 08/19/22 09/18/22 Interventional Nurse Relationship Specialty Start Date End Date Celina Bee MD [address] [place] [address] PCP - General Family Medicine 07/22/20 [place] [address] Primary Care Vice President Client Services 08/19/22 09/07/22 Nichol Arrieta RN [address] [place] [address] Chief Accounting Officer 09/07/22 Interventional Nurse Relationship Specialty Start Date End Date Celina Bee MD [address] [place] [address] PCP - General Family Medicine 07/22/20 Nichol Arrieta RN [address] [place] [address] Chief Accounting Officer 09/07/22 Interventional Nurse Relationship Specialty Start Date End Date Celina Bee MD [address] [place] [address] PCP - General Family Medicine 07/22/20 Nichol Arrieta RN [address] [place] [address] Chief Accounting Officer 09/07/22 Interventional Nurse Relationship Specialty Start Date End Date Celina Bee MD [address] [place] [address] PCP - General Family Medicine 07/22/20 Nichol Arrieta RN [address] [place] [address] Chief Accounting Officer 09/07/22 Interventional Nurse Relationship Specialty Start Date End Date Celina Bee MD [address] [place] [address] PCP - General Family Medicine 07/22/20 Nichol Arrieta RN [address] [place] [address] Chief Accounting Officer 09/07/22 Interventional Nurse Relationship Specialty Start Date End Date Celina Bee MD [address] [place] [address] PCP - General Family Medicine 07/22/20 Nichol Arrieta RN [address] [place] [address] Chief Accounting Officer 09/07/22 Interventional Nurse Relationship Specialty Start Date End Date Celina Bee MD [address] [place] [address] PCP - General Family Medicine 07/22/20 Nichol Arrieta RN [address] [place] [address] Chief Accounting Officer 09/07/22 Interventional Nurse Relationship Specialty Start Date End Date Celina Bee MD [address] [place] [address] PCP - General Family Medicine 07/22/20 Nichol Arrieta RN [address] [place] [address] Chief Accounting Officer 09/07/22 Interventional Nurse Relationship Specialty Start Date End Date Celina Bee MD [address] [place] [address] PCP - General Family Medicine 07/22/20 Nichol Arrieta RN [address] [place] [address] Chief Accounting Officer 09/07/22 Interventional Nurse Relationship Specialty Start Date End Date Celina Bee MD [address] [place] [address] PCP - General Family Medicine 07/22/20 Nichol Arrieta RN [address] [place] [address] Chief Accounting Officer 09/07/22 Interventional Nurse Relationship Specialty Start Date End Date Nichol Arrieta RN [address] [place] [address] Chief Accounting Officer 09/07/22 Interventional Nurse Relationship Specialty Start Date End Date Nichol Arrieta RN [address] [place] [address] Chief Accounting Officer 09/07/22 Interventional Nurse Relationship Specialty Start Date End Date Nichol Arrieta RN [address] [place] [address] Chief Accounting Officer 09/07/22 Interventional Nurse Relationship Specialty Start Date End Date Nichol Arrieta RN [address] [place] [address] Chief Accounting Officer 09/07/22 Interventional Nurse Relationship Specialty Start Date End Date Hermelinda Brown, RAIL WASHER.SAMPLE TESTER GRINDER [address] [place] [address] PCP - General Family Medicine 06/07/23 Nichol Arrieta RN [address] [place] [address] Chief Accounting Officer 09/07/22 Interventional Nurse Relationship Specialty Start Date End Date Hermelinda Brown, RAIL WASHER.SAMPLE TESTER GRINDER [address] [place] [address] PCP - General Family Medicine 06/07/23 Nichol Arrieta RN [address] [place] [address] Chief Accounting Officer 09/07/22 Interventional Nurse Relationship Specialty Start Date End Date Nichol Arrieta RN [address] [place] [address] Chief Accounting Officer 09/07/22 Interventional Nurse Relationship Specialty Start Date End Date Nichol Arrieta, RN [address] [place] [address] Chief Accounting Officer 09/07/22 Reason for Visit (unrecogniz ed section and content) Reason Comments Patient Question Reason Onset Date Comments Refill Request 06/24/2022 Reason Comments Refill Request Reason Comments Refill Request Her son hasn't been giving her the medications she is supposed to be taking. Reason Onset Date Comments Refill Request Refill Request 08/02/2022 Reason Comments drug screen results Reason Onset Date Comments Request Inpatient Admission To [facility] 08/12/2022 Reason Onset Date Comments Facility transfer 08/15/2022 [facility] 08/13/22 Bilateral PE, SI Reason Comments Appointment Reason Comments Follow Up Phone Call All clear Reason Comments Transition Of Care D/C from [facility] 2021 Reason Onset Date Comments Transition follow up 09/07/2022 Reason Comments Returning Patient's Call Reason Onset Date Comments Refill Request 11/04/2022 Reason Comments Eliquis auth Reason Comments Orders Reason Onset Date Comments Refill Request 01/06/2023 Reason Comments Port Flush Reason Onset Date Comments Refill Request 02/02/2023 Reason Comments Pulmonary Embolism 3 month follow up Fibromyalgia Back Pain Anxiety Reason Comments Night Sweats Reason Onset Date Comments Refill Request 05/25/2023 Reason Onset Date Comments Refill Request 05/22/2023 Reason Comments Medication Problem Reason Comments Missed Appointment 06/09/23 Reason Onset Date Comments Refill Request 08/31/2023 FOR RECORDS PERTAINING TO PATIENTS WHO ARE OR HAVE BEEN ENROLLED IN A CHEMICAL DEPENDENCY/SUBSTANCEABUSE PROGRAM, SOME INFORMATION MAY BE OMITTED. This clinical summary was aggregated from multiple sources. Caution should be exercised in using it in the provision of clinical care. This summary normalizes information from multiple sources, and as a consequence, information in this document may materially change the coding, format and clinical context of patient data. In addition, data may be omitted in some cases. CLINICAL DECISIONS SHOULD BE BASED ON THE PRIMARY CLINICAL RECORDS. [employer] [facility]. provides no warranty or guarantee of the accuracy or completeness of information in this document.
[2023-10-29 16:50] LABS: AST(SGOT) 45 U/L (15-37); Alanine Aminotransfer ALT/SGPT 34 U/L (13-56); Albumin, Serum 3.4 g/dL (3.2-5.0); Alkaline Phosphatase 166 U/L (45-117); Anion Gap 7 (5-15); BUN 13 mg/dL (7-18); BUN/Creat Ratio 10.2 RATIO (10-20); CPK Total, Creatine Kinase 76 U/L (26-192); Calcium,Total 8.9 mg/dL (8.5-10.1); Chloride 110 mmol/L (98-107); Creatinine, Serum 1.28 mg/dL (0.55-1.02); EST Glomerular Filtration Rate 44 mL/min (>60); Est Glom Filt Rate - Afr Amer 53 mL/min (>60); Estimated Creatinine Clearance 41.26 ml/min; Globulin 3.3 g/dL (2.2-4.2); Glucose 131 mg/dL (74-106); Potassium 3.5 mmol/L (3.5-5.1); Protein, Total 6.7 g/dL (6.4-8.2); Sodium Level 141 mmol/L (136-145); Troponin-I HS 10 pg/mL (3.0-54.0)
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
[2023-10-29] MEDS: Morphine 4 MG/ML Syringe IV (19:16)
[2023-10-29] MEDS: Ceftriaxone 2 GM in 0.9% Normal Saline (50mL MB+) 50 ML IV (19:16)
[2023-10-29 19:31] LABS: Bacteria 0 SEEN /hpf (None Seen); Mucous, Urine 0 SEEN /hpf (<or=2+); Red Blood Cells-Urine 0 SEEN /hpf (0-5); White Blood Cells 0 SEEN /hpf (0-5)
[2023-10-29 19:40] LABS: Color, Urine Yellow (Yellow); Glucose, Dipstick Normal (Normal); Ketone-Dipstick Negative (Negative); Leukocyte Esterase-Dipstick Negative /ul (Negative); Nitrite-Dipstick Negative (Negative); Occult Blood-Urine Negative /ul (Negative); Protein-Dipstick Negative (Negative); Specific Gravity, Urine 1.005 (1.002-1.030); Urine Bilirubin Dipstick Negative (Negative); Urine Clarity Sl. Cloudy (Clear); Urine Urobilinogen Normal (Normal)
[2023-10-29 19:51] LABS: Squamous Epithelial Cells - UA 0-5 SEEN /hpf (5-10)
--- OUTSIDE RECORDS SUMMARY | 2023-10-29 20:06 | XMS RPT_ITS | CCD ---
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 AUTHOR'S ORGANIZ ATION 10/20/2022 [facility] DATE CREATED AUTHOR AUTHOR'S ORGANIZ ATION 09/03/2023 [facility] DATE CREATED AUTHOR AUTHOR'S ORGANIZ ATION 09/03/2023 [facility] Care Teams (unrecognized sec tion and content) Supervisor Gear Repair Relationship Specialty Start Date End Date Celina Bee MD [address] [place], [place] [id number] PCP - General Family Practice 07/22/20 Supervisor Gear Repair Relationship Specialty Start Date End Date Celina Bee MD [address] [place], [place] [id number] PCP - General Family Practice 07/22/20 Supervisor Gear Repair Relationship Specialty Start Date End Date Celina Bee MD [address] [place], [place] [id number] PCP - General Family Practice 07/22/20 Supervisor Gear Repair Relationship Specialty Start Date End Date Celina Bee MD [address] [place], [place] [id number] PCP - General Family Practice 07/22/20 Supervisor Gear Repair Relationship Specialty Start Date End Date Celina Bee MD [address] [place] [address] PCP - General Family Medicine 07/22/20 Supervisor Gear Repair Relationship Specialty Start Date End Date Celina Bee MD [address] [place] [address] PCP - General Family Medicine 07/22/20 Supervisor Gear Repair Relationship Specialty Start Date End Date Celina Bee MD [address] [place] [address] PCP - General Family Medicine 07/22/20 Supervisor Gear Repair Relationship Specialty Start Date End Date Celina Bee MD [address] [place] [address] PCP - General Family Medicine 07/22/20 Supervisor Gear Repair Relationship Specialty Start Date End Date Celina Bee MD [address] [place] [address] PCP - General Family Medicine 07/22/20 Supervisor Gear Repair Relationship Specialty Start Date End Date Celina Bee MD [address] [place] [address] PCP - General Family Medicine 07/22/20 Supervisor Gear Repair Relationship Specialty Start Date End Date Celina Bee MD [address] [place] [address] PCP - General Family Medicine 07/22/20 Supervisor Gear Repair Relationship Specialty Start Date End Date Celina Bee MD [address] [place] [address] PCP - General Family Medicine 07/22/20 Nichol Arrieta, MATTHEW [address] [place] [address] Primary Care Patternmaker Grader 08/15/22 Supervisor Gear Repair Relationship Specialty Start Date End Date Celina Bee MD [address] [place] [address] PCP - General Family Medicine 07/22/20 Nichol Arrieta, MATTHEW [address] [place] [address] Primary Care Patternmaker Grader 08/19/22 09/18/22 Supervisor Gear Repair Relationship Specialty Start Date End Date Celina Bee MD [address] [place] [address] PCP - General Family Medicine 07/22/20 Nichol Arrieta, MATTHEW [address] [place] [address] Primary Care Patternmaker Grader 08/19/22 09/18/22 Supervisor Gear Repair Relationship Specialty Start Date End Date Celina Bee MD [address] [place] [address] PCP - General Family Medicine 07/22/20 Nichol Arreita RN [address] [place] [address] Primary Care Patternmaker Grader 08/19/22 09/18/22 Supervisor Gear Repair Relationship Specialty Start Date End Date Celina Bee MD [address] [place] [address] PCP - General Family Medicine 07/22/20 Nichol Arrieta, MATTHEW [address] [place] [address] Primary Care Patternmaker Grader 08/19/22 09/18/22 Supervisor Gear Repair Relationship Specialty Start Date End Date Celina Bee MD [address] [place] [address] PCP - General Family Medicine 07/22/20 [place] [address] Primary Care Patternmaker Grader 08/19/22 09/07/22 Nichol Arrieta RN [address] [place] [address] Dual Hose Cementer 09/07/22 Supervisor Gear Repair Relationship Specialty Start Date End Date Celina Bee MD [address] [place] [address] PCP - General Family Medicine 07/22/20 Nichol Arrieta RN [address] [place] [address] Dual Hose Cementer 09/07/22 Supervisor Gear Repair Relationship Specialty Start Date End Date Celina Bee MD [address] [place] [address] PCP - General Family Medicine 07/22/20 Nichol Arrieta RN [address] [place] [address] Dual Hose Cementer 09/07/22 Supervisor Gear Repair Relationship Specialty Start Date End Date Celina Bee MD [address] [place] [address] PCP - General Family Medicine 07/22/20 Nichol Arrieta RN [address] [place] [address] Dual Hose Cementer 09/07/22 Supervisor Gear Repair Relationship Specialty Start Date End Date Celina Bee MD [address] [place] [address] PCP - General Family Medicine 07/22/20 Nichol Arrieta RN [address] [place] [address] Dual Hose Cementer 09/07/22 Supervisor Gear Repair Relationship Specialty Start Date End Date Celina Bee MD [address] [place] [address] PCP - General Family Medicine 07/22/20 Nichol Arrieta RN [address] [place] [address] Dual Hose Cementer 09/07/22 Supervisor Gear Repair Relationship Specialty Start Date End Date Celina Bee MD [address] [place] [address] PCP - General Family Medicine 07/22/20 Nichol Arrieta RN [address] [place] [address] Dual Hose Cementer 09/07/22 Supervisor Gear Repair Relationship Specialty Start Date End Date Celina Bee MD [address] [place] [address] PCP - General Family Medicine 07/22/20 Nichol Arrieta RN [address] [place] [address] Dual Hose Cementer 09/07/22 Supervisor Gear Repair Relationship Specialty Start Date End Date Celina Bee MD [address] [place] [address] PCP - General Family Medicine 07/22/20 Nichol Arrieta RN [address] [place] [address] Dual Hose Cementer 09/07/22 Supervisor Gear Repair Relationship Specialty Start Date End Date Celina Bee MD [address] [place] [address] PCP - General Family Medicine 07/22/20 Nichol Arrieta RN [address] [place] [address] Dual Hose Cementer 09/07/22 Supervisor Gear Repair Relationship Specialty Start Date End Date Nichol Arrieta RN [address] [place] [address] Dual Hose Cementer 09/07/22 Supervisor Gear Repair Relationship Specialty Start Date End Date Nichol Arrieta RN [address] [place] [address] Dual Hose Cementer 09/07/22 Supervisor Gear Repair Relationship Specialty Start Date End Date Nichol Arrieta RN [address] [place] [address] Dual Hose Cementer 09/07/22 Supervisor Gear Repair Relationship Specialty Start Date End Date Nichol Arrieta RN [address] [place] [address] Dual Hose Cementer 09/07/22 Supervisor Gear Repair Relationship Specialty Start Date End Date Hermelinda Brown, ADVERTISING ACCOUNT EXECUTIVE.TORCH HEATER [address] [place] [address] PCP - General Family Medicine 06/07/23 Nichol Arrieta RN [address] [place] [address] Dual Hose Cementer 09/07/22 Supervisor Gear Repair Relationship Specialty Start Date End Date Hermelinda Brown, ADVERTISING ACCOUNT EXECUTIVE.TORCH HEATER [address] [place] [address] PCP - General Family Medicine 06/07/23 Nichol Arrieta RN [address] [place] [address] Dual Hose Cementer 09/07/22 Supervisor Gear Repair Relationship Specialty Start Date End Date Nichol Arrieta RN [address] [place] [address] Dual Hose Cementer 09/07/22 Supervisor Gear Repair Relationship Specialty Start Date End Date Nichol Arrieta, RN [address] [place] [address] Dual Hose Cementer 09/07/22 Reason for Visit (unrecogniz ed section [...] Reason Onset Date Comments Facility transfer 08/15/2022 [facility] ED to [facility] 08/13/22 Bilateral PE, SI Reason Comments Appointment Reason Comments Follow Up Phone Call All clear Reason Comments Transition Of Care D/C from [facility] 2021 Reason Onset Date Comments Transition follow [...] BE BASED ON THE PRIMARY CLINICAL RECORDS. [facility]. provides no warranty or guarantee of the accuracy or completeness of information in this document.
[2023-10-29] MEDS: Azithromycin 500 MG in Dextrose 5%-Water (250mL Bag) 250 ML 250 MG IV (20:19)
[2023-10-29 20:24] LABS: Reflex Lactate? Y
[2023-10-29 20:49] LABS: Lactic Acid 1.7 mmol/L (0.4-1.9)
[2023-10-29] MEDS: guaiFENesin/D-Methorphan TAB.SR.12H 1 TABLET PO (21:59)
[2023-10-29] MEDS: busPIRone 5 MG Tablet PO (21:59)
[2023-10-29] MEDS: QUEtiapine 100 MG Tablet PO (21:59)
[2023-10-29] MEDS: Pregabalin 50 MG Capsule 200 MG PO (22:02)
[2023-10-29] MEDS: 0.9 % NaCl (Sterile) Posiflush 10 mL IV (22:15)
[2023-10-29] MEDS: metroNIDAZOLE 500 MG/100 ML BAG 100 MG IV (22:18)
[2023-10-30] MEDS: 0.9% Normal Saline (1000mL) 1,000 ML 999 ML IV (00:57)
[2023-10-30] MEDS: Morphine 2 MG/ML Syringe IV ×4 (01:08→21:20)
[2023-10-30] MEDS: 0.9 % NaCl (Sterile) Posiflush 10 mL IV ×3 (01:09→21:19)
--- NOTE | 2023-10-30 01:20 | ECHOCS_ITS ---
Reason For Study: SYNCOPE/NEAR SYNCOPE Procedure This was a 2D Doppler, Color Flow transthoracic echocardiogram. The study was technically difficult. Exam performed portable in patient room. Left Ventricle Normal size and thickness. The left ventricular ejection fraction is 65 %. Right Ventricle Normal RV size. Mild to moderate global right ventricular systolic dysfunction. Atria The left and right atria are normal. Mitral Valve Trivial mitral valve insufficiency. Tricuspid Valve The tricuspid valve is not well visualized. Aortic Valve Trisinus/trileaflet aortic valve. Pulmonic Valve The pulmonic valve is not well visualized. Great Vessels Normal sized aortic root. Pericardium/Pleural Trivial pericardial effusion. Epicardial fat. Medication Diluted definity 2ml given slow IV push to enhance endocardial definition. MMode/2D Measurements & Calculations LVIDd: 3.7 cm IVSd: 0.99 cm Ao root diam: 3.3 cm LVIDs: 2.6 cm LVPWd: 0.87 cm RVDd: 3.0 cm FS: 30.3 % LAV(MOD-bp): 22.1 ml LVAd ap4: 24.1 cm2 SV(MOD-sp4): 38.3 ml LAV(MOD-bp) Indexed: 11.5 ml/m2 LVLd ap4: 7.4 cm LAV(MOD-sp2): 20.3 ml EDV(MOD-sp4): 64.4 ml LAV(MOD-sp4): 22.5 ml EDV(sp4-el): 66.4 ml LVAs ap4: 13.5 cm2 LVLs ap4: 6.1 cm ESV(MOD-sp4): 26.2 ml ESV(sp4-el): 25.3 ml EF(MOD-sp4): 59.4 % EF(sp4-el): 62.0 % SV(sp4-el): 41.1 ml LA A4 area: 11.6 cm2 LA dimension(2D): 2.7 cm RA A4 area: 11.6 cm2 TAPSE: 2.3 cm Time Measurements MV dec time: 0.19 sec Doppler Measurements & Calculations MV E max trev: 69.4 cm/sec Lat Peak E' Trev: 10.9 cm/sec Med Peak E' Trev: 10.1 cm/sec MV A max trev: 90.7 cm/sec E/E' lat: 6.4 E/E' med: 6.8 MV E/A: 0.76 Ao V2 max: 101.8 cm/sec LV V1 max: 99.3 cm/sec PA V2 max: 85.5 cm/sec Ao max P.1 mmHg LV V1 max P.9 mmHg ECHO/Echo Complete W/ Contrast Interpretation Summary The left ventricular ejection fraction is 65 %. Mild to moderate global right ventricular systolic dysfunction. Ordering Physician: Bull Harris Performed By: Viji Osborne, RDMAHAMED
--- NOTE | 2023-10-30 01:20 | CDU_ITS ---
Reason For Study: Syncope Rt. Velocities/BP Lt. Velocities/BP Prox CCA 63/13 cm/sec. Prox CCA 129/32 cm/sec. Mid CCA 85/23 cm/sec. Mid CCA 83/22 cm/sec. Dist CCA 89/25 cm/sec. Dist CCA 72/18 cm/sec. Prox ICA 70/22 cm/sec. Prox ICA 99/29 cm/sec. Mid ICA 92/34 cm/sec. Mid ICA 56/15 cm/sec. Dist ICA 80/27 cm/sec. Dist ICA 96/38 cm/sec. Rt. ICA/CCA = 1.1. Lt. ICA/CCA = 1.2. Prox ECA 109/12 cm/sec. Prox ECA 70/20 cm/sec. Rt. Vert. 39/12 cm/sec. Lt. Vert. 53/16 cm/sec. Right Extracranial There is heterogeneous, irregular atherosclerotic plaque noted in the right common carotid artery. There is intimal thickening but no significant atherosclerotic plaque noted in the right internal carotid artery. There is intimal thickening but no significant atherosclerotic plaque noted in the right external carotid artery. Antegrade flow is noted in the right vertebral artery. Left Extracranial There is intimal thickening but no significant atherosclerotic plaque noted in the left common carotid artery. There is intimal thickening but no significant atherosclerotic plaque noted in the left internal carotid artery. There is no significant atherosclerotic plaque noted in the left external carotid artery. Antegrade flow is noted in the left vertebral artery. Procedure Carotid Duplex 11600. This is a Carotid Duplex examination using B-mode, color flow and specral Doppler. Exam performed portable in patient room. VL/Carotid Duplex Ultrasound Interpretation Summary Normal right extracranial internal carotid. Normal left extracranial internal carotid. Patent and antegrade vertebrals bilaterally. Ordering Physician: Bull Harris Performed By: Micheline Hanna, ANACS, RVT
[2023-10-30 03:04] VITALS: BP 122/62; PULSE 77; RESP 18; TEMP 36.3; O2SAT 96
[2023-10-30 04:21] VITALS: O2SAT 96
[2023-10-30] MEDS: metroNIDAZOLE 500 MG/100 ML BAG 100 MG IV (05:24)
[2023-10-30] MEDS: Pregabalin 50 MG Capsule 200 MG PO ×3 (05:24→21:30)
[2023-10-30] MEDS: busPIRone 5 MG Tablet PO ×3 (05:24→21:19)
[2023-10-30 05:31] LABS: Absolute Lymphocyte Count 2.25 X10^3/uL (0.83-4.51); Absolute Neutrophil Count 5.5 X10^3/uL (2.0-7.7); Basophil# 0.03 X10^3/uL; Basophil% 0.4 % (0-1); Eosinophil# 0.04 X10^3/uL; Eosinophils% 0.5 % (0-5); Hematocrit 31.4 % (37-47); Hemoglobin 9.8 g/dL (12.0-15.0); Lymphocyte # 2.25 X10^3/ul (0.83-4.51); Lymphocyte % 26.3 % (19-41); Mean Corp Hgb Conc 31.2 g/dL (32-36); Mean Corpuscular Hgb 25.4 pg (27.0-32.0); Mean Corpuscular Volume 81.3 fL (81-99); Mean Platelet Vol. 12.1 fl (6.2-12.0); Monocyte# 0.69 X10^3/uL; Monocyte% 8.1 % (0-10); NRBC Flagged by Analyzer 0 % (0-5); Neutrophil # 5.52 X10^3/uL (2.7-7.7); Neutrophil % 64.5 % (47-70); Platelet Count 158 K/mm3 (150-450); RBC Distribution Width CV 15.9 % (11.6-14.6); RBC Distribution Width SD 47.3 fl (35.1-43.9); Red Blood Count 3.86 M/mm3 (4.2-5.4); White Blood Count 8.6 K/mm3 (4.4-11.0)
--- NOTE | 2023-10-30 05:55 | RAD_ITS ---
INDICATION: RUL PNA. EXAMINATION/TECHNIQUE: X-RAY - XR Chest 1 View COMPARISON: CT October 29, 2023. FINDINGS: LINES/DEVICES: Accessed right chest port tip projects at the superior cavoatrial junction.. LUNGS: Small patchy medial right upper lung airspace opacities, new from August 09, 2023. No left lung consolidation. No left lung consolidation. No florid edema or effusion. No pneumothorax. MEDIASTINUM AND CARDIOVASCULAR STRUCTURES: Cardiac silhouette not enlarged. BONES AND SOFT TISSUES: Unremarkable. RAD/Chest 1 View (Portable) IMPRESSION: Patchy medial right upper lobe airspace opacities concerning for pneumonia. Electronically Signed: Osmar Ware MD at 8:49 EST ,
[2023-10-30 06:17] LABS: AST(SGOT) 45 U/L (15-37); Alanine Aminotransfer ALT/SGPT 33 U/L (13-56); Albumin, Serum 2.6 g/dL (3.2-5.0); Alkaline Phosphatase 134 U/L (45-117); Anion Gap 2 (5-15); BUN 12 mg/dL (7-18); BUN/Creat Ratio 12.9 RATIO (10-20); Calcium,Total 7.4 mg/dL (8.5-10.1); Chloride 114 mmol/L (98-107); Creatinine, Serum 0.93 mg/dL (0.55-1.02); EST Glomerular Filtration Rate 63 mL/min (>60); Est Glom Filt Rate - Afr Amer 77 mL/min (>60); Estimated Creatinine Clearance 57.58 ml/min; Globulin 2.6 g/dL (2.2-4.2); Glucose 132 mg/dL (74-106); Potassium 3.4 mmol/L (3.5-5.1); Protein, Total 5.2 g/dL (6.4-8.2); Sodium Level 141 mmol/L (136-145); Troponin-I HS 8 pg/mL (3.0-54.0)
[2023-10-30 09:00] VITALS: BP 126/70; BP 136/70; PULSE 77; PULSE 82; RESP 16; TEMP 36.6; TEMP 36.8; O2SAT 95; O2SAT 97
[2023-10-30] MEDS: guaiFENesin/D-Methorphan TAB.SR.12H 1 TABLET PO ×2 (09:22→21:19)
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
--- NOTE | 2023-10-30 14:49 | CASEMGMT ---
MATTHEW JJ Assessment Face to Face with patient for initial transition planning/care coordination assessment. MATTHEW JJ introduced self and role at [facility], pt voices understanding. Pt is A&Ox4 and is resting comfortably in bed and is calm. Care providers, pharmacy, and demographics verified. Admitting dx: RUL PNA, SIRS vs SEPSIS, HECTOR, SYNCOPE LACE Strata: 2 Pt PCP: Pt states that she has been on a wait list x5 months to be seen by Harry Alfaro ([facility]). Pt states she has an appt this month on November 14. Specialists: Denies Preferred Pharmacy: [facility]. Pt states that she gets Xarelto delivered through insurance. Pt states the med is 1500$ without insurance and that with insurance she pays 134$ for 90 pills. Insurance: [employer] Prescription Benefit: Yes LNOK: Quin Jerry (Sister) Living Arrangements: Pt lives alone in a single story apartment with 2 steps to enter without HR. Pt states she uses a cane to enter and exit the home. ADLs/IADLs: States independent. Pt states that she will get groceries delivered to the home at times. Pt states she also brings her laundry to a laundromat at times. Transportation: Pt drives DME: Pt uses a cane. Denies needing a walker now. Pt states she recently orders grab bars for her shower. Shower chair. HHC/SNF: Denies history or needs. Pt?s goal: Home Plan: 6-Click = 20. Pt denies SNF or HHC. Pt states that she wants to DC home alone with no additional needs at this time. Pt educated to notify CM if any needs arise. Sharifa Black RN, CM
[2023-10-30 15:00] VITALS: BP 148/79; PULSE 79; RESP 16; TEMP 530.7; TEMP 987.2; O2SAT 94
--- NOTE | 2023-10-30 15:22 | PCM.PN.HOSP ---
Reason for Visit Reason for Visit: Diagnoses Pneumonia, unspecified organism (10/29/23) Acute kidney failure, unspecified (10/29/23) Other chest pain (10/29/23) Syncope and collapse (10/29/23) Subjective Subjective Patient admitted yesterday evening for generalized weakness, fevers and malaise. Patient did well overnight, no new concerns. Patient seen at bedside this morning. Sitting up comfortably in bed, conversing normally, no acute distress. Patient denies any fevers/chills this morning. Denies any cough or sputum production. Reports good urine output. Had not been out of bed yet this morning to work with therapy. Otherwise denied any other pain or discomfort. No other acute concerns. Objective Data Objective Data Vital Signs: Vital Signs Temp Pulse Resp BP Pulse Ox O2 Del Method 97.9 F 82 16 126/70 H 97 Room Air 10/30/23 09:00 10/30/23 09:00 10/30/23 09:00 10/30/23 09:00 10/30/23 09:00 10/30/23 10:00 Oxygen Delivery Method Room Air Weight: 91.6 kg Body Mass Index (BMI) 36.9 Intake & Output: Intake and Output for Last 24 Hours 10/28/23 10/29/23 10/30/23 23:59 23:59 23:59 Intake Total 2785 / 2785 3100 / 3100 Output Total 600 / 600 Balance 2185 / 2185 3100 / 3100 Lab / Micro Data 10/30/23 05:20 10/30/23 05:20 Labs: Laboratory Results - last 24 hr 10/29/23 16:17: WBC 11.3 H, RBC 5.03, Hgb 12.6, Hct 40.1, MCV 79.7 L, MCH 25.0 L, MCHC 31.4 L, RDW Std Deviation 44.2 H, RDW Coeff of Farzad 15.6 H, Plt Count 222, MPV 12.1 H, Immature Gran % (Auto) 0.400, Neut % (Auto) 82.7 H, Lymph % (Auto) 9.8 L, Piatt % (Auto) 6.8, Eos % (Auto) 0.0, Baso % (Auto) 0.3, Absolute Neuts (auto) 9.3 H, Absolute Lymphs (auto) 1.11, Nucleated RBC % 0, PT 14.8, INR 1.2, APTT 27.2, Sodium 141, Potassium 3.5, Chloride 110 H, Carbon Dioxide 24.0, Anion Gap 7, BUN 13, Creatinine 1.28 H, Estim Creat Clear Calc 41.26, Est GFR (MDRD) Af Amer 53 L, Est GFR (MDRD) Non-Af 44 L, BUN/Creatinine Ratio 10.2, Glucose 131 H, Lactic Acid 3.0 H*, Calcium 8.9, Total Bilirubin 0.50, AST 45 H, ALT 34, Alkaline Phosphatase 166 H, Total Creatine Kinase 76, Troponin I High Sens 10, B-Natriuretic Peptide 24.0, Total Protein 6.7, Albumin 3.4, Globulin 3.3, Albumin/Globulin Ratio 1.0 10/29/23 19:23: Urine Color Yellow, Urine Clarity Sl. Cloudy, Urine pH 7.0, Ur Specific [place] 1.005, Urine Protein Negative, Urine Glucose (UA) Normal, Urine Ketones Negative, Urine Occult Blood Negative, Urine Nitrite Negative, Urine Bilirubin Negative, Urine Urobilinogen Normal, Ur Leukocyte Esterase Negative, Urine RBC 0 SEEN, Urine WBC 0 SEEN, Ur Squamous Epith Cells 0-5 SEEN, Urine Bacteria 0 SEEN, Urine Mucus 0 SEEN 10/29/23 20:15: Lactic Acid 1.7 10/30/23 05:20: WBC 8.6, RBC 3.86 L, Hgb 9.8 L, Hct 31.4 L, MCV 81.3, MCH 25.4 L, MCHC 31.2 L, RDW Std Deviation 47.3 H, RDW Coeff of Farzad 15.9 H, Plt Count 158, MPV 12.1 H, Immature Gran % (Auto) 0.200, Neut % (Auto) 64.5, Lymph % (Auto) 26.3, Piatt % (Auto) 8.1, Eos % (Auto) 0.5, Baso % (Auto) 0.4, Absolute Neuts (auto) 5.5, Absolute Lymphs (auto) 2.25, Nucleated RBC % 0, Sodium 141, Potassium 3.4 L, Chloride 114 H, Carbon Dioxide 25.0, Anion Gap 2 L, BUN 12, Creatinine 0.93, Estim Creat Clear Calc 57.58, Est GFR (MDRD) Af Amer 77, Est GFR (MDRD) Non-Af 63, BUN/Creatinine Ratio 12.9, Glucose 132 H, Calcium 7.4 L, Total Bilirubin 0.30, AST 45 H, ALT 33, Alkaline Phosphatase 134 H, Troponin I High Sens 8, Total Protein 5.2 L, Albumin 2.6 L, Globulin 2.6, Albumin/Globulin Ratio 1.0 Micro: Microbiology 10/29/23 23:25 Urine, Clean Catch Streptococcus pneumoniae Antigen (M - Final 10/29/23 23:25 Urine, Clean Catch Legionella Antigen - Final 10/29/23 17:15 Mucosa - Nose SARS-CoV-2, Influenza & RSV (PCR) - Final Radiography Diagnostic Testing: Radiology Impression Brain CT 10/29/23 15:50 IMPRESSION: There are no acute findings. Electronically Signed: Enrique Gaytan MD at 17:50 EST , Cervical Spine CT 10/29/23 15:50 IMPRESSION: Degenerative changes of the cervical spine. There are no acute findings. Electronically Signed: Enrique Gaytan MD at 18:14 EST , Chest/Abdomen/Pelvis CT 10/29/23 15:50 IMPRESSION: Right upper lobe infiltrate suggesting pneumonia. Electronically Signed: Enrique Gaytan MD at 18:13 EST , Chest X-Ray 10/30/23 05:55 IMPRESSION: Patchy medial right upper lobe airspace opacities concerning for pneumonia. Electronically Signed: Osmar Ware MD at 8:49 EST , Rhythm Strip Rhythm Strip: Sinus Tach Rate: 120 Ectopy: None Physical Exam Const alert, oriented x3 and no apparent distress Constitutional Narrative: Pleasant elderly female, obese, sitting up comfortably in bed, conversing normally, no acute distress. General Appearance: cooperative and comfortable HEENT normocephalic, head/scalp atraumatic, hearing grossly normal bilaterally, nasal mucous membranes and turbinates normal and moist oral mucous membranes Eyes PERRL, EOMs intact bilaterally and conjunctivae normal Neck full ROM, no lymphadenopathy and supple Lymph Lymphatic: no lymphadenopathy noted Chest inspection of chest normal Resp normal respiratory effort, normal air movement, no use of accessory muscles and clear to auscultation bilaterally Auscultation: Negative for crackles or wheezes Cardio regular rate, regular rhythm, no murmurs and peripheral pulses 2+ throughout GI normal to inspection, nondistended, normoactive bowel sounds, soft to palpation, non-tender and non-distended Back/Spine normal ROM Extremity normal to inspection, full ROM and no pedal edema Skin no rashes or lesions noted Neuro no focal motor deficits and no sensory deficits noted Speech: speech normal Psych mental status grossly normal Assessment & Plan Assessment/Plan (1) Pneumonia: QUALIFIERS: Pneumonia type: due to unspecified organism Laterality: right Lung location: upper lobe of lung Qualified Code(s): J18.9 - Pneumonia, unspecified organism (2) HECTOR (acute kidney injury): PLAN: Plan Patient is a 73 year old female who presented to [facility] ED on 10/29/2023 with fevers, malaise and generalized weakness. 1. Concern for CAP with unknown organism CT chest on admit reported as RUL infiltrate consistent with pneumonia; appears very mild from my read of CT scan. Mild leukocytosis on admit, resolved w/ IVF. Tachycardia, hypotension, elevated lactic acid also resolved with IV fluids. Patient with no pneumonia type symptoms noted. COVID/flu/RSV negative. Urine antigens negative. Blood cultures pending. Unable to produce sample for sputum culture. - Will continue to treat with ceftriaxone and azithromycin for now. If remains stable tomorrow, likely okay to deescalate to PO antibiotics in preparation for discharge. Plan for 7-day course of antibiotics total. 2. Mild HECTOR, resolved - Creatinine 1.28 on admit, baseline creatinine around 0.7-0.9. Creatinine improved to 0.93 on 10/30 after IV fluids. 3. Reported episodes of syncope - TTE 10/30 showed EF 65%, mild to moderate global RV systolic dysfunction noted. No previous TTE's available for comparison. Carotid duplex US 10/30 with normal findings. Suspect vasovagal in origin if patient did have true syncope at home. Monitor. 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 - Obesity: BMI 37 on admit. Complicated hospital course, care and prognosis. - Depression/Anxiety/Insomnia: Continue home buspar, seroquel. - Fibromyalgia: Continue home Lyrica. DVT prophylaxis: Xarelto Code status: Full code, verified Expected disposition: Home, 1-2 days Total clinical time spent by myself addressing the patient's medical issues, reviewing all the data, and collaborating with patient's care team: 35 minutes. Charges/Coding Visit Charges Inpatient E&M: 62747 Subs Hosp L2
[2023-10-30 15:56] LABS: Vitamin B12 238 pg/mL (211-911)
[2023-10-30 16:04] LABS: Ferritin 24 ng/mL (8-252); Iron 46 ug/dL (50-170); Iron Binding Capacity,Total 292 ug/dL (250-450); PERCENT IRON SATURATION 15.8 % (15.0-55.0)
[2023-10-30] MEDS: Rivaroxaban 20 MG Tablet PO (17:48)
[2023-10-30 21:03] VITALS: BP 145/74; PULSE 84; RESP 16; TEMP 36.9; O2SAT 96
[2023-10-30] MEDS: Ceftriaxone 1 GM/50 ML BAG IV (21:18)
[2023-10-30] MEDS: QUEtiapine 100 MG Tablet PO (21:19)
[2023-10-31 03:00] VITALS: BP 155/92; PULSE 88; RESP 16; TEMP 36.6; O2SAT 98
[2023-10-31 03:10] VITALS: BP 155/92; PULSE 86; RESP 16; TEMP 36.6; O2SAT 95
[2023-10-31] MEDS: 0.9 % NaCl (Sterile) Posiflush 10 mL IV (03:17)
[2023-10-31] MEDS: Morphine 2 MG/ML Syringe IV ×2 (03:17→09:06)
[2023-10-31] MEDS: busPIRone 5 MG Tablet PO ×3 (05:50→21:40)
[2023-10-31] MEDS: Pregabalin 50 MG Capsule 200 MG PO ×3 (05:50→21:39)
[2023-10-31 07:42] VITALS: O2SAT 93
[2023-10-31 08:51] VITALS: BP 147/73; PULSE 83; RESP 16; TEMP 36.3; O2SAT 98
[2023-10-31] MEDS: Azithromycin 500 MG in Dextrose 5%-Water (250mL Bag) 250 ML 250 MG IV (09:00)
[2023-10-31] MEDS: 0.9% Saline Lock 10 ML Syringe IV ×2 (09:00→12:04)
[2023-10-31] MEDS: guaiFENesin/D-Methorphan TAB.SR.12H 1 TABLET PO ×2 (09:00→21:40)
[2023-10-31] MEDS: Ondansetron 4 MG/2 ML Vial IV (12:04)
[2023-10-31 15:08] VITALS: BP 126/72; PULSE 88; RESP 16; TEMP 36.7; O2SAT 94
--- NOTE | 2023-10-31 15:19 | PCM.PN.HOSP ---
Reason for Visit Reason for Visit: Diagnoses Pneumonia, unspecified organism (10/29/23) Acute kidney failure, unspecified (10/29/23) Other chest pain (10/29/23) Syncope and collapse (10/29/23) Subjective Subjective Was notified by nursing staff this morning that patient had an episode of nausea with emesis around 7 to 8 AM. Patient had not had any episodes of emesis during this admission to that point. Patient seen at bedside later this morning. She was laying in bed in no acute distress but did appear more fatigued this morning and appeared to be in mild discomfort. States that she generally feels nauseous this morning and had 1 episode of emesis. States she did not feel nauseous overnight, is unsure why she has suddenly felt nauseous this morning. Did not eat much for breakfast. She otherwise denies any fevers or chills. She does report generalized neck and back pain that is chronic for, but feels slightly worse this morning than previous days. No other acute concerns morning. Objective Data Objective Data Vital Signs: Vital Signs Temp Pulse Resp BP Pulse Ox O2 Del Method 98.1 F 88 16 126/72 H 94 Room Air 10/31/23 15:08 10/31/23 15:08 10/31/23 15:08 10/31/23 15:08 10/31/23 15:08 10/31/23 15:08 Oxygen Delivery Method Room Air Weight: 91.6 kg Body Mass Index (BMI) 36.9 Intake & Output: Intake and Output for Last 24 Hours 10/29/23 10/30/23 10/31/23 23:59 23:59 23:59 Intake Total 2785 / 2785 3800 / 3800 555 / 555 Output Total 600 / 600 Balance 2185 / 2185 3800 / 3800 555 / 555 Lab / Micro Data 10/30/23 05:20 10/30/23 05:20 Labs: Laboratory Results - last 24 hr 10/30/23 05:20: Iron 46 L, TIBC 292, Iron Saturation 15.8, Ferritin 24, Vitamin B12 238, Folate 3.70 Micro: Microbiology 10/29/23 19:23 Urine, Clean Catch Urine Culture - Preliminary Culture exhibits no growth. 10/29/23 23:25 Urine, Clean Catch Streptococcus pneumoniae Antigen (M - Final 10/29/23 23:25 Urine, Clean Catch Legionella Antigen - Final 10/29/23 17:15 Mucosa - Nose SARS-CoV-2, Influenza & RSV (PCR) - Final Radiography Diagnostic Testing: Radiology Impression Carotid Duplex 10/30/23 01:20 Interpretation Summary Normal right extracranial internal carotid. Normal left extracranial internal carotid. Patent and antegrade vertebrals bilaterally. Ordering Physician: Bull Harris Performed By: Micheline Hanna RDCS, RVT Echocardiogram 10/30/23 01:20 Interpretation Summary The left ventricular ejection fraction is 65 %. Mild to moderate global right ventricular systolic dysfunction. Ordering Physician: Bull Harris Performed By: Viji Osborne RDCS Rhythm Strip Rhythm Strip: Sinus Tach Rate: 120 Ectopy: None Physical Exam Const alert, oriented x3 and no apparent distress Constitutional Narrative: Pleasant elderly female, obese, laying in bed, more fatigued this morning than yesterday and appears mildly uncomfortable due to nausea, otherwise no acute distress. General Appearance: cooperative HEENT normocephalic, head/scalp atraumatic, hearing grossly normal bilaterally, nasal mucous membranes and turbinates normal and moist oral mucous membranes Eyes PERRL, EOMs intact bilaterally and conjunctivae normal Neck full ROM, no lymphadenopathy and supple Lymph Lymphatic: no lymphadenopathy noted Chest inspection of chest normal Resp normal respiratory effort, normal air movement, no use of accessory muscles and clear to auscultation bilaterally Auscultation: Negative for crackles or wheezes Cardio regular rate, regular rhythm, no murmurs and peripheral pulses 2+ throughout GI normal to inspection, nondistended, normoactive bowel sounds, soft to palpation, non-tender and non-distended Back/Spine normal ROM Extremity normal to inspection, full ROM and no pedal edema Skin no rashes or lesions noted Neuro no focal motor deficits and no sensory deficits noted Speech: speech normal Psych mental status grossly normal Assessment & Plan Assessment/Plan (1) Pneumonia: QUALIFIERS: Pneumonia type: due to unspecified organism Laterality: right Lung location: upper lobe of lung Qualified Code(s): J18.9 - Pneumonia, unspecified organism (2) HECTOR (acute kidney injury): PLAN: Plan Patient is a 73 year old female who presented to [facility] ED on 10/29/2023 with fevers, malaise and generalized weakness. 1. Concern for CAP with unknown organism CT chest on admit reported as RUL infiltrate consistent with pneumonia; appears very mild from my read of CT scan. Mild leukocytosis on admit, resolved w/ IVF. Tachycardia, hypotension, elevated lactic acid also resolved with IV fluids. Patient with no pneumonia type symptoms noted. COVID/flu/RSV negative. Urine antigens negative. Blood cultures pending. Unable to produce sample for sputum culture. - Will continue to treat with ceftriaxone and azithromycin for now. If remains stable tomorrow, likely okay to deescalate to PO antibiotics in preparation for discharge. Plan for 7-day course of antibiotics total. 2. Mild HECTOR, resolved - Creatinine 1.28 on admit, baseline creatinine around 0.7-0.9. Creatinine improved to 0.93 on 10/30 after IV fluids. 3. Reported episodes of syncope - TTE 10/30 showed EF 65%, mild to moderate global RV systolic dysfunction noted. No previous TTE's available for comparison. Carotid duplex US 10/30 with normal findings. Suspect vasovagal in origin if patient did have true syncope at home. Monitor. 4. Nausea/vomiting ? Had new onset nausea with an episode of vomiting on morning of 10/31. Unclear etiology. Could be secondary to antibiotic administration on empty stomach. Abdominal exam benign, low concern for new intra-abdominal pathology. Zofran as needed ordered. Monitor. 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 - Obesity: BMI 37 on admit. Complicated hospital course, care and prognosis. - Depression/Anxiety/Insomnia: Continue home buspar, seroquel. - Chronic pain: Continue home p.o. Dilaudid as needed, Lyrica. DVT prophylaxis: Xarelto Code status: Full code, verified Expected disposition: Home, 1-2 days Total clinical time spent by myself addressing the patient's medical issues, reviewing all the data, and collaborating with patient's care team: 35 minutes. Charges/Coding Visit Charges Inpatient E&M: 90616 Subs Hosp L2
[2023-10-31] MEDS: Rivaroxaban 20 MG Tablet PO (16:33)
[2023-10-31] MEDS: HYDROmorphone 2 MG TABLET PO ×2 (16:33→21:39)
[2023-10-31 21:21] VITALS: BP 157/71; PULSE 85; RESP 20; TEMP 36.6; O2SAT 95
[2023-10-31] MEDS: QUEtiapine 100 MG Tablet PO (21:40)
[2023-10-31] MEDS: Ceftriaxone 1 GM/50 ML BAG IV (21:40)
[2023-11-01 02:30] VITALS: BP 126/70; PULSE 89; RESP 16; TEMP 36.3; O2SAT 94
[2023-11-01] MEDS: HYDROmorphone 2 MG TABLET PO ×2 (02:40→06:49)
[2023-11-01] MEDS: Pregabalin 50 MG Capsule 200 MG PO (06:03)
[2023-11-01] MEDS: busPIRone 5 MG Tablet PO (06:03)
[2023-11-01] MEDS: Acetaminophen 325 MG Tablet 650 MG PO (06:03)
[2023-11-01 07:45] VITALS: O2SAT 93
[2023-11-01 08:30] VITALS: BP 154/69; PULSE 87; RESP 19; TEMP 37.4; O2SAT 95
[2023-11-01] MEDS: guaiFENesin/D-Methorphan TAB.SR.12H 1 TABLET PO (08:48)
[2023-11-01] MEDS: Azithromycin 500 MG in Dextrose 5%-Water (250mL Bag) 250 ML 250 MG IV (08:57)
--- NOTE | 2023-11-01 09:31 | CASEMGMT ---
Discharge Planning Call received from patients sister, Quin, regarding concerns with homegoing. Quin states that she had a long talk with patient and it was agreed by both that she could use additional help in the home. This information was passed along to RN CM. Maci Alan, Discharge Planning Asst.
--- NOTE | 2023-11-01 09:41 | CASEMGMT ---
Discharge Planning A list of?HH providers including quality and resource use data and consistent with the patient's preferred geographic region, medical needs, and insurance network was created in [employer].? This list was provided to the RN АННА. Maci Alan, Discharge Planning Asst.
[2023-11-01 09:46] LABS: Hematocrit 32.3 % (37-47); Mean Corpuscular Hgb 25.2 pg (27.0-32.0); Mean Corpuscular Volume 81.4 fL (81-99); Mean Platelet Vol. 11.6 fl (6.2-12.0); Platelet Count 154 K/mm3 (150-450); RBC Distribution Width CV 15.9 % (11.6-14.6); RBC Distribution Width SD 47.5 fl (35.1-43.9); Red Blood Count 3.97 M/mm3 (4.2-5.4); White Blood Count 4.3 K/mm3 (4.4-11.0)
--- NOTE | 2023-11-01 10:33 | CASEMGMT ---
Addendum entered by Radha Black 11/01/23 11:52: The pt does not have a PCP so we cannot set up HHC at this time. Pt updated and states she will see a PCP on 11/14/23 and follow up with HH after this. Pt states that she does feel safe being DC home today and that she has friends that can help her at home if needed. Pt states that she drove here and will drive herself home after DC. Dr. Esqueda paged via backline and made aware. Pt denies further needs at this time. Original Note: Pt states that she would be interested in HHC now. A local list of in network agencies (printed by the [place] registered sales assistant) provided to the pt. Will follow for pt choices.
--- NOTE | 2023-11-01 11:21 | DCINST_ITS ---
Discharge Instructions Diet Discharge Diet: No restrictions Activity Discharge Activity: No Restrictions Weight Bearing Status: Full weight bearing Follow Up Care Test Results: Test results from this visit will be discussed in further detail at your follow- up appointment, if applicable. Discharge Plan Admission Admit Date/Time: 10/29/23 19:40 Primary Reason for Your Visit: fevers/chills, weakness Attending Provider: Ben Esqueda Primary Care Provider: Care Physician,No Primary Consulting Providers: Bull Harris Instructions Additional Instructions / Restrictions: Complete antibiotic course is notable low. Use oral Dilaudid sparingly for pain over the next few days. Discharge Orders/Prescriptions Prescriptions: New hydromorphone 2 mg Tablet 2 mg PO Q4H PRN PRN (Reason: Pain Score 6-10) 3 Days Qty: 18 0RF azithromycin 500 mg tablet 500 mg PO DAILY 5 Days Qty: 5 0RF Continued cyclobenzaprine 10 mg tablet 10 mg PO TID PRN (Reason: Muscle Spasm) Qty: 10 0RF Patient Comments: PT STATES DOES NOT TYPICALLY TAKE TID quetiapine 100 mg tablet 100 mg PO QHS buspirone 5 mg tablet 5 mg PO TID pregabalin 200 mg capsule 200 mg PO Q8H Xarelto 20 mg tablet 20 mg PO DAILY Qty: 30 0RF Rx Instructions: must administer with evening meal Referrals / Follow Up: Care Physician,No Primary [Primary Care Provider] - Disposition Disposition (needs filled in before D/C Order can be placed): Home, Self Care
--- NOTE | 2023-11-01 11:25 | DS.PCM_ITS ---
Providers Date of Admission: 10/29/23 Primary Care Physician: No Primary Care Phys Reason For Visit: RUL PNA, SIRS VS SEPSIS, HECTOR AND SYNCOPE Diagnosis Discharge Diagnosis (1) Pneumonia: Status: Acute Code(s): J18.9 - Pneumonia, unspecified organism Qualifiers: Pneumonia type: due to unspecified organism Laterality: right Lung location: upper lobe of lung Qualified Code(s): J18.9 - Pneumonia, unspecified organism (2) HECTOR (acute kidney injury): Status: Acute Code(s): N17.9 - Acute kidney failure, unspecified Plan Patient is a 73 year old female who presented to [facility] ED on 10/29/2023 with fevers, malaise and generalized weakness. 1. Concern for CAP with unknown organism CT chest on admit reported as RUL infiltrate consistent with pneumonia; appears very mild from my read of CT scan. Mild leukocytosis on admit, resolved w/ IVF. Tachycardia, hypotension, elevated lactic acid also resolved with IV fluids. Patient with no pneumonia type symptoms noted. COVID/flu/RSV negative. Urine antigens negative. Blood cultures pending. Unable to produce sample for sputum culture. - Will continue to treat with ceftriaxone and azithromycin for now. If remains stable tomorrow, likely okay to deescalate to PO antibiotics in preparation for discharge. Plan for 7-day course of antibiotics total. 2. Mild HECTOR, resolved - Creatinine 1.28 on admit, baseline creatinine around 0.7-0.9. Creatinine improved to 0.93 on 10/30 after IV fluids. 3. Reported episodes of syncope - TTE 10/30 showed EF 65%, mild to moderate global RV systolic dysfunction noted. No previous TTE's available for comparison. Carotid duplex US 10/30 with normal findings. Suspect vasovagal in origin if patient did have true syncope at home. Monitor. 4. Nausea/vomiting ? Had new onset nausea with an episode of vomiting on morning of 10/31. Unclear etiology. Could be secondary to antibiotic administration on empty stomach. Abdominal exam benign, low concern for new intra-abdominal pathology. Zofran as needed ordered. Monitor. 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 - Obesity: BMI 37 on admit. Complicated hospital course, care and prognosis. - Depression/Anxiety/Insomnia: Continue home buspar, seroquel. - Chronic pain: Continue home p.o. Dilaudid as needed, Lyrica. DVT prophylaxis: Xarelto Code status: Full code, verified Expected disposition: Home, 1-2 days Total clinical time spent by myself addressing the patient's medical issues, reviewing all the data, and collaborating with patient's care team: 35 minutes. Medications at Discharge Home Medications cyclobenzaprine 10 mg tablet 10 mg PO TID PRN Muscle Spasm #10 TABLETS 10/26/22 buspirone 5 mg tablet 5 mg PO TID anxiety 05/24/23 pregabalin 200 mg capsule 200 mg PO Q8H fibromyalgia 05/24/23 quetiapine 100 mg tablet 100 mg PO QHS insomnia 05/24/23 rivaroxaban 20 mg tablet (Xarelto) 20 mg PO DAILY #30 tabs 08/11/23 azithromycin 500 mg tablet 500 mg PO DAILY 5 days #5 tabs 11/01/23 hydromorphone 2 mg tablet 2 mg PO Q4H PRN PRN Pain Score 6-10 3 days #18 tabs 11/01/23 Weight / BMI Weight Weight: 91.6 kg Body Mass Index (BMI) 36.9 ABG / Lab / Microbiology Data 11/01/23 09:30 10/30/23 05:20 Laboratory: Laboratory Results - last 24 hr 11/01/23 09:30: WBC 4.3 L, RBC 3.97 L, Hgb 10.0 L, Hct 32.3 L, MCV 81.4, MCH 25.2 L, MCHC 31.0 L, RDW Std Deviation 47.5 H, RDW Coeff of Farzad 15.9 H, Plt Count 154, MPV 11.6 Microbiology: Microbiology 10/29/23 19:23 Urine, Clean Catch Urine Culture - Final Culture exhibits no growth. 10/29/23 23:25 Urine, Clean Catch Streptococcus pneumoniae Antigen (M - Final 10/29/23 23:25 Urine, Clean Catch Legionella Antigen - Final 10/29/23 17:15 Mucosa - Nose SARS-CoV-2, Influenza & RSV (PCR) - Final D/C Instructions Discharge Diet: No restrictions Weight Bearing Status: Full weight bearing Discharge Plan Admission Admit Date/Time: 10/29/23 19:40 Primary Reason for Your Visit: fevers/chills, weakness Attending Provider: Ben Esqueda Primary Care Provider: Care Physician,No Primary Consulting Providers: Bull Harris Instructions Additional Instructions / Restrictions: Complete antibiotic course is notable low. Use oral Dilaudid sparingly for pain over the next few days. Discharge Orders/Prescriptions Prescriptions: New hydromorphone 2 mg Tablet 2 mg PO Q4H PRN PRN (Reason: Pain Score 6-10) 3 Days Qty: 18 0RF azithromycin 500 mg tablet 500 mg PO DAILY 5 Days Qty: 5 0RF Continued cyclobenzaprine 10 mg tablet 10 mg PO TID PRN (Reason: Muscle Spasm) Qty: 10 0RF Patient Comments: PT STATES DOES NOT TYPICALLY TAKE TID quetiapine 100 mg tablet 100 mg PO QHS buspirone 5 mg tablet 5 mg PO TID pregabalin 200 mg capsule 200 mg PO Q8H Xarelto 20 mg tablet 20 mg PO DAILY Qty: 30 0RF Rx Instructions: must administer with evening meal Referrals / Follow Up: Care Physician,No Primary [Primary Care Provider] - Disposition Disposition (needs filled in before D/C Order can be placed): Home, Self Care
--- NOTE | 2023-11-01 11:25 | PCM.DC.SUM ---
Providers Date of Admission: 10/29/23 Date of Discharge: 11/01/23 Primary Care Physician: No Primary Care Phys Reason For Visit: RUL PNA, SIRS VS SEPSIS, HECTOR AND SYNCOPE Diagnosis Discharge Diagnosis (1) Pneumonia: Status: Acute Code(s): J18.9 - Pneumonia, unspecified organism Qualifiers: Laterality: right Lung location: upper lobe of lung Pneumonia type: due to unspecified organism Qualified Code(s): J18.9 - Pneumonia, unspecified organism (2) HECTOR (acute kidney injury): Status: Acute Code(s): N17.9 - Acute kidney failure, unspecified Medications at Discharge Home Medications cyclobenzaprine 10 mg tablet 10 mg PO TID PRN Muscle Spasm #10 TABLETS 10/26/22 buspirone 5 mg tablet 5 mg PO TID anxiety 05/24/23 pregabalin 200 mg capsule 200 mg PO Q8H fibromyalgia 05/24/23 quetiapine 100 mg tablet 100 mg PO QHS insomnia 05/24/23 rivaroxaban 20 mg tablet (Xarelto) 20 mg PO DAILY #30 tabs 08/11/23 azithromycin 500 mg tablet 500 mg PO DAILY 5 days #5 tabs 11/01/23 hydromorphone 2 mg tablet 2 mg PO Q4H PRN PRN Pain Score 6-10 3 days #18 tabs 11/01/23 Hospital Course Operations None Procedures EKG, Transthoracic echo and - (CT brain and cervical spine without contrast, CT chest abdomen pelvis with IV contrast, carotid duplex ultrasound, chest x-ray) Summary of Care Provided Minutes Spent on Discharge: 35 Hospital Course: Patient is a 73 year old female who presented to [facility] ED on 10/29/2023 with fevers, malaise and generalized weakness. Hospital course as noted below. Discharged home in stable condition on 11/01. 1. Suspected CAP with unknown organism CT chest on admit reported as RUL infiltrate consistent with pneumonia; appears very mild from my read of CT scan. Mild leukocytosis on admit, resolved w/ IVF. Tachycardia, hypotension, elevated lactic acid also resolved with IV fluids. Patient with no pneumonia type symptoms noted. COVID/flu/RSV negative. Urine antigens negative. Blood cultures negative. Unable to produce sample for sputum culture. ? Treated with ceftriaxone and azithromycin while inpatient. Discharged on p.o. azithromycin 500 mg daily with plan to complete 7-day course of antibiotics total. 2. Mild HECTOR, resolved - Creatinine 1.28 on admit, baseline creatinine around 0.7-0.9. Creatinine improved to 0.93 on 10/30 after IV fluids. 3. Reported episodes of syncope - TTE 10/30 showed EF 65%, mild to moderate global RV systolic dysfunction noted. No previous TTE's available for comparison. Carotid duplex US 10/30 with normal findings. Suspect vasovagal in origin if patient did have true syncope at home. No episodes of syncope while inpatient. 4. Nausea/vomiting, improved ? Had new onset nausea with an episode of vomiting on morning of 10/31. Unclear etiology. Could be secondary to antibiotic administration on empty stomach. Abdominal exam benign, low concern for new intra-abdominal pathology. Improved with Zofran as needed. 5. Musculoskeletal chest pain and back pain, history of chronic pain ? Patient previously on p.o. Dilaudid, had moderate to severe pain while inpatient that improved with p.o. Dilaudid. Discharged with short course of p.o. Dilaudid 2 mg every 4 hours as needed. Continue home Lyrica. 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 - Obesity: BMI 37 on admit. Complicated hospital course, care and prognosis. - Depression/Anxiety/Insomnia: Continue home buspar, seroquel. Total clinical time spent by myself addressing the patient's discharge needs: 35 minutes. Physical Exam Const alert, oriented x3 and no apparent distress Constitutional Narrative: Pleasant elderly female, obese, mildly fatigued but otherwise laying comfortably in bed, conversing normally, no acute distress. General Appearance: cooperative HEENT normocephalic, head/scalp atraumatic, hearing grossly normal bilaterally, nasal mucous membranes and turbinates normal and moist oral mucous membranes Eyes PERRL, EOMs intact bilaterally and conjunctivae normal Neck full ROM, no lymphadenopathy and supple Lymph Lymphatic: no lymphadenopathy noted Chest inspection of chest normal Resp normal respiratory effort, normal air movement, no use of accessory muscles and clear to auscultation bilaterally Auscultation: Negative for crackles or wheezes Cardio regular rate, regular rhythm, no murmurs and peripheral pulses 2+ throughout GI normal to inspection, nondistended, normoactive bowel sounds, soft to palpation, non-tender and non-distended Back/Spine normal ROM Extremity normal to inspection, full ROM and no pedal edema Skin no rashes or lesions noted Neuro no focal motor deficits and no sensory deficits noted Speech: speech normal Psych mental status grossly normal Weight / BMI Weight Weight: 91.6 kg Body Mass Index (BMI) 36.9 ABG / Lab / Microbiology Data 11/01/23 09:30 11/01/23 09:30 Laboratory: Laboratory Results - last 24 hr 11/01/23 09:30: WBC 4.3 L, RBC 3.97 L, Hgb 10.0 L, Hct 32.3 L, MCV 81.4, MCH 25.2 L, MCHC 31.0 L, RDW Std Deviation 47.5 H, RDW Coeff of Farzad 15.9 H, Plt Count 154, MPV 11.6 Microbiology: Microbiology 10/29/23 19:23 Urine, Clean Catch Urine Culture - Final Culture exhibits no growth. 10/29/23 23:25 Urine, Clean Catch Streptococcus pneumoniae Antigen (M - Final 10/29/23 23:25 Urine, Clean Catch Legionella Antigen - Final 10/29/23 17:15 Mucosa - Nose SARS-CoV-2, Influenza & RSV (PCR) - Final D/C Instructions Discharge Diet: No restrictions Weight Bearing Status: Full weight bearing Meaningful Use Info Meaningful Use Diagnoses (Choose all that apply): None applicable Discharge Plan Admission Admit Date/Time: 10/29/23 19:40 Primary Reason for Your Visit: fevers/chills, weakness Attending Provider: Ben Esqueda Primary Care Provider: Care Physician,No Primary Consulting Providers: Bull Harris Instructions Additional Instructions / Restrictions: Complete antibiotic course is notable low. Use oral Dilaudid sparingly for pain over the next few days. Discharge Orders/Prescriptions Prescriptions: New hydromorphone 2 mg Tablet 2 mg PO Q4H PRN PRN (Reason: Pain Score 6-10) 3 Days Qty: 18 0RF azithromycin 500 mg tablet 500 mg PO DAILY 5 Days Qty: 5 0RF Continued cyclobenzaprine 10 mg tablet 10 mg PO TID PRN (Reason: Muscle Spasm) Qty: 10 0RF Patient Comments: PT STATES DOES NOT TYPICALLY TAKE TID quetiapine 100 mg tablet 100 mg PO QHS buspirone 5 mg tablet 5 mg PO TID pregabalin 200 mg capsule 200 mg PO Q8H Xarelto 20 mg tablet 20 mg PO DAILY Qty: 30 0RF Rx Instructions: must administer with evening meal Referrals / Follow Up: Care Physician,No Primary [Primary Care Provider] - Disposition Disposition (needs filled in before D/C Order can be placed): Home, Self Care Charges/Coding Visit Charges Inpatient E&M: 27998 Disch Hosp >30min
[2023-11-01 11:37] LABS: Anion Gap 3 (5-15); BUN 9 mg/dL (7-18); BUN/Creat Ratio 8.9 RATIO (10-20); Calcium,Total 8.3 mg/dL (8.5-10.1); Chloride 108 mmol/L (98-107); Creatinine, Serum 1.01 mg/dL (0.55-1.02); EST Glomerular Filtration Rate 57 mL/min (>60); Est Glom Filt Rate - Afr Amer 69 mL/min (>60); Estimated Creatinine Clearance 53.02 ml/min; Glucose 148 mg/dL (74-106); Potassium 3.4 mmol/L (3.5-5.1); Sodium Level 137 mmol/L (136-145)
[2023-11-01 12:08] VITALS: BP 147/69; PULSE 84; RESP 17; TEMP 36.7; O2SAT 95
[2023-11-01] MEDS: 0.9 % NaCl (Sterile) Posiflush 10 mL IV (12:17)
== END 2023-11-01 13:02 | disposition home or self-care (01) | DRG 194 ==
LOC: ED 16:40 → PCU 20:02
PROVIDERS: Admitting Provider Internal Medicine; Emergency Provider Emergency Medicine; Visit Provider Hospitalist
DX: J18.9 Pneumonia, unspecified organism (principal); E87.20 Acidosis, unspecified; N18.30 Chronic kidney disease, stage 3 unspecified; F32.A Depression, unspecified; F41.9 Anxiety disorder, unspecified; M79.7 Fibromyalgia; M54.9 Dorsalgia, unspecified; R11.2 Nausea with vomiting, unspecified; E66.9 Obesity, unspecified; R07.89 Other chest pain; Z68.38 Body mass index [BMI] 38.0-38.9, adult; G47.00 Insomnia, unspecified; Z79.899 Other long term (current) drug therapy; Z79.01 Long term (current) use of anticoagulants; Z86.711 Personal history of pulmonary embolism; Z86.718 Personal history of other venous thrombosis and embolism
CPT/HCPCS: 70450; 71045; 71250; 72125; 74176; 80048; 80053; 81001; 82550; 82607; 82728; 82746; 83540; 83550; 83605; 83880; 84484; 85025; 85027; 85610; 85730; 87040; 87086; 87449; 87631; 93005; 93306; 93880; 94668; 94762; 99285; J7030; J7040; Q9957; A4216; C8929; J2405

== ENCOUNTER 2023-12-10 21:29 | Emergency (ER) | payer BC, SELFPAY ==
[2023-12-10 21:29] VITALS: BP 182/102; PULSE 103; RESP 20; O2SAT 98
[2023-12-10 21:30] VITALS: BP 163/110; PULSE 102; RESP 104; TEMP 35.9; O2SAT 99; BMI 37.7
--- NOTE | 2023-12-10 22:59 | ED.VIS.GI ---
HPI HPI - GI History of Present Illness Chief Complaint: Chest Other Detail of Chief Complaint: Patient points to the right upper quadrant and not chest Informant: patient Abdominal Pain/Flank Pain Onset: Days Context: - (Became worse today.) Timing: Continuous Quality: Aching Location: RUQ Current Severity: Moderate Maximum Severity: Severe Worsened by: Movement Relieved by: Nothing Nausea/Vomiting/Emesis GI Symptom: Positive for Nausea Diarrhea/Melena/Hematochezia GI Symptom: Negative for Diarrhea, Melena or Hematochezia Associated Symptoms Associated Symptoms: Negative for Dysuria, Frequency, Hematuria or Urgency Narrative Narrative: Patient is a 73-year-old female who presents with pain that she localizes in the right upper quadrant and not her chest. It does radiate through to her back. She has known history of liver disease. She had abnormal labs recently. She does not know specifically what is wrong with her liver. She is status postcholecystectomy. She denies intolerance to greasy or fried foods. Movement does make it worse as well as breathing. She does endorse nausea without vomiting diarrhea. Denies black or maroon-colored stool. She denies hematochezia. Patient denies fever, chills night sweats. Patient denies headache, visual, ocular auditory symptoms. Patient Nuys neck pain or neck stiffness. Patient denies chest pressure, heaviness or tightness. She denies radiation of the pain to her jaw, shoulders or arms. She denies pain radiating through to her back. She does complain of pain in the right flank area. She denies history of renal or ureterolithiasis. She denies dysuria, frequency, urgency or hematuria. There is no history of trauma. Patient is on Xarelto. There is a prior history of PE. She reports compliance with her medicine. Prior similar symptoms: No Recent Illness/Hospitalization: Yes [facility] Medical History Anxiety and depression CKD (chronic kidney disease), stage III Hx of deep venous thrombosis Non-smoker Obesity Pulmonary embolism Seizures Home Medications cyclobenzaprine 10 mg tablet 10 mg PO TID PRN Muscle Spasm #10 TABLETS 10/26/22 [Rx Last Taken 10/29/23] buspirone 5 mg tablet 5 mg PO TID anxiety 05/24/23 [History Last Taken 10/29/23] pregabalin 200 mg capsule 200 mg PO Q8H fibromyalgia 05/24/23 [History Last Taken 10/29/23] quetiapine 100 mg tablet 100 mg PO QHS insomnia 05/24/23 [History Last Taken 10/28/23] rivaroxaban 20 mg tablet (Xarelto) 20 mg PO DAILY #30 tabs 08/11/23 [Rx Last Taken Unknown] azithromycin 500 mg tablet 500 mg PO DAILY 5 days #5 tabs 11/01/23 [Rx Last Taken Unknown] hydromorphone 2 mg tablet 2 mg PO Q4H PRN PRN Pain Score 6-10 3 days #18 tabs 11/01/23 [Rx Last Taken Unknown] Allergy/AdvReac Type Severity Reaction Status Date / Time adhesive tape [tape] Allergy Rash Verified 10/29/23 15:26 butorphanol [From Stadol] Allergy Other Verified 10/29/23 15:26 Penicillins [PCN] Allergy Swelling Verified 10/29/23 15:26 sumatriptan [From Imitrex] Allergy Other Verified 10/29/23 15:26 Family History Mother Lung cancer Father Alcoholic cirrhosis of liver Alcoholism Surgical History History of cholecystectomy History of orthopedic surgery Hx of hysterectomy Previous back surgery Social History household members: none Smoking Status: Never smoker second hand exposure: Yes alcohol intake: never substance use type: does not use ROS ROS ED Constitutional Constitutional ED: Denies chills, fever(s), subjective, sweats or weight loss ENT ENT ED: Reports other Details: Cataract surgery on the right. ; Denies ear pain, rhinorrhea or sore throat Cardiovascular Cardiovascular: Denies chest pain, orthopnea, palpitations, paroxysmal nocturnal dyspnea or racing heartbeat Respiratory/Chest Respiratory/Chest: Denies cough, dyspnea, dyspnea on exertion, orthopnea or paroxysmal nocturnal dyspnea Gastrointestinal Gastrointestinal: Reports abdominal pain and nausea; Denies constipation, diarrhea, melena or vomiting Genitourinary Genitourinary ED: Denies dysuria, hematuria or urinary frequency Musculoskeletal Musculoskeletal: Denies arthralgias, back pain, myalgias or neck pain Integumentary Denies rash Neurologic Neurologic: Denies headache(s) or paresthesias Endocrine Endocrinology: Denies polydipsia or polyuria Hematologic/Lymphatic Hematologic/Lymphatic: Reports easy bruising; Denies easy bleeding EXAM Physical Exam Const Vital Signs: 12/10/23 21:30 12/10/23 21:29 12/10/23 23:29 Temperature 96.7 F L Temperature Source Temporal Pulse Rate 102 H 103 H 79 Respiratory Rate 104 H 20 H 16 Blood Pressure 163/110 H 182/102 H 147/93 H Blood Pressure Mean 127 128 111 Pulse Ox 99 98 98 Oxygen Delivery Method Room Air Room Air Room Air 12/11/23 00:13 12/11/23 02:00 12/11/23 02:46 Temperature Temperature Source Pulse Rate 82 80 81 Respiratory Rate 15 20 H 15 Blood Pressure 109/93 H 106/54 L 137/84 H Blood Pressure Mean 98 71 101 Pulse Ox 96 95 94 Oxygen Delivery Method Room Air Room Air Positive well nourished, well developed and obese Constitutional Narrative: Patient appears uncomfortable. She has her hand over her right upper upper quadrant and grimaces with change in position when asked to sit up and turn in order for me to do a complete respiratory and back exam. General Appearance ED: well developed; Negative for pallor Nutritional Appearance: obese HEENT Reports TM's clear and dry mucous membranes normocephalic and atraumatic Tympanic Membrane ED: Yes TM's clear Mouth ED: Yes dry mucous membranes Mouth: dry mucous membranes Eyes PERRL and EOMs intact bilaterally Eyes Narrative: Cataract surgery right only General Eye ED: Negative for pale conjunctiva or scleral icterus Neck no lymphadenopathy, supple and no JVD Resp normal respiratory effort and clear to auscultation bilaterally Cardio regular rhythm, S1 normal heart sound, S2 normal heart sound and no murmurs Rate: tachycardic GI non-distended and no masses; Negative for non-tender GI Narrative: Pain is worse in the right upper quadrant versus the left upper quadrant. Auscultation: hypoactive bowel sounds Palpation: soft and tender LUQ and RUQ; Negative for guarding, rigid, hepatomegaly, splenomegaly, hernia, mass, pulsatile mass or rebound tenderness present Back/Spine General Back: CVA tenderness right Thoracic Spine / Upper Back: Negative for thoracic spinal tenderness Lumbar Spine / Lower Back: Negative for lumbar spinal tenderness Extremity full ROM Extremity Narrative: There is no leg vein distention, palpable cords or tenderness on the distribution deep venous system. There is no discoloration or asymmetry. General Extremety ED: Yes edema; Negative for tenderness General Extremity: edema Neuro CN's II-XII intact bilaterally and moves all extremities Sensorium / Orientation: alert Psych mental status grossly normal and thought process normal Skin no wounds General Skin Exam: Negative for jaundice or pallor MDM MDM MDM Narrative Medical decision making narrative: Differential diagnosis would be pain due to liver disease, choledocholithiasis, GERD, peptic ulcer disease, abdominal pain of unknown etiology fatty liver. History and physical exam is not suggestive of cardiac or respiratory. Based on prior admission if there is no significant abnormality of her liver enzymes or lipase will obtain chest x-ray to assess for right lower lobe pneumonia which can cause right upper quadrant abdominal pain. History & Record Review Additional record(s) reviewed:: Prior inpatient record (Admitted October 2023 for right upper lobe pneumonia, HECTOR.), Prior ED visit and Prior labs Lab Data Attestation: I reviewed the patient's lab results. Lab results narrative: CBC reveals microcytic indices otherwise unremarkable. Electrolyte panel is marked for chloride of 115. Liver enzymes reveal slight elevation of alkaline phosphatase 139. Urine reveals a contaminated specimen with 10-25 epithelial cells. Labs: Laboratory Results - last 24 hr 12/10/23 12/11/23 23:27 00:15 WBC 5.6 RBC 4.88 Hgb 12.5 Hct 39.2 MCV 80.3 L MCH 25.6 L MCHC 31.9 L RDW Std Deviation 47.5 H RDW Coeff of Farzad 16.3 H Plt Count 199 MPV 12.1 H Immature Gran % (Auto) 0.200 Neut % (Auto) 52.6 Lymph % (Auto) 35.4 Alfalfa % (Auto) 10.9 H Eos % (Auto) 0.4 Baso % (Auto) 0.5 Absolute Neuts (auto) 3.0 Absolute Lymphs (auto) 1.98 Nucleated RBC % 0 Sodium 144 Potassium 3.7 Chloride 115 H Carbon Dioxide 24.0 Anion Gap 5 BUN 10 Creatinine 0.92 Estim Creat Clear Calc 58.86 Est GFR (MDRD) Af Amer 77 Est GFR (MDRD) Non-Af 64 BUN/Creatinine Ratio 10.8 Glucose 105 Lactic Acid 1.0 Calcium 8.8 Total Bilirubin 0.50 AST 30 ALT 27 Alkaline Phosphatase 139 H Total Protein 6.7 Albumin 3.5 Globulin 3.2 Albumin/Globulin Ratio 1.1 Lipase 43 Urine Color Yellow Urine Clarity Sl. Cloudy Urine pH 6.5 Ur Specific Healy 1.020 Urine Protein 30 H Urine Glucose (UA) Normal Urine Ketones 5 H Urine Occult Blood 25 H Urine Nitrite Positive H Urine Bilirubin 1 H Urine Urobilinogen 1 H Ur Leukocyte Esterase 100 H Urine RBC 0 SEEN Urine WBC 0-5 SEEN Ur Squamous Epith Cells 10-25 SEEN Urine Bacteria 3+ Urine Mucus 0 SEEN Treatment and Re-Evaluation :: Patient was reassessed at 0255. Pain is improved markedly. Patient was informed the cause of her pain is unknown. She was not informed that her blood work which was abnormal is no longer abnormal. Discharge Plan Triage Chief Complaint: Chest Other ED Provider: Naman Augustin Dx/Rx/DC Orders Clinical Impression: Anticoagulant long-term use, Abdominal pain, acute, right upper quadrant Instructions: ED Abdominal Pain Unkn Cause Fem Prescriptions: No Action cyclobenzaprine 10 mg tablet 10 mg PO TID PRN (Reason: Muscle Spasm) Qty: 10 0RF Patient Comments: PT STATES DOES NOT TYPICALLY TAKE TID quetiapine 100 mg tablet 100 mg PO QHS buspirone 5 mg tablet 5 mg PO TID pregabalin 200 mg capsule 200 mg PO Q8H Xarelto 20 mg tablet 20 mg PO DAILY Qty: 30 0RF Rx Instructions: must administer with evening meal hydromorphone 2 mg Tablet 2 mg PO Q4H PRN PRN (Reason: Pain Score 6-10) 3 Days Qty: 18 0RF azithromycin 500 mg tablet 500 mg PO DAILY 5 Days Qty: 5 0RF Primary Care Provider: Michelle Moon Referrals: Michelle Moon, [employer] [Primary Care Provider] - 3-5 Days Disposition Disposition: Home, Self Care
[2023-12-10] MEDS: 0.9% Normal Saline (1000mL) 1,000 ML 150 ML IV (23:00)
[2023-12-10 23:29] VITALS: BP 147/93; PULSE 79; RESP 16; O2SAT 98
[2023-12-10 23:31] LABS: Absolute Lymphocyte Count 1.98 X10^3/uL (0.83-4.51); Basophil# 0.03 X10^3/uL; Basophil% 0.5 % (0-1); Eosinophil# 0.02 X10^3/uL; Eosinophils% 0.4 % (0-5); Hematocrit 39.2 % (37-47); Hemoglobin 12.5 g/dL (12.0-15.0); Lymphocyte # 1.98 X10^3/ul (0.83-4.51); Lymphocyte % 35.4 % (19-41); Mean Corp Hgb Conc 31.9 g/dL (32-36); Mean Corpuscular Hgb 25.6 pg (27.0-32.0); Mean Corpuscular Volume 80.3 fL (81-99); Mean Platelet Vol. 12.1 fl (6.2-12.0); Monocyte# 0.61 X10^3/uL; Monocyte% 10.9 % (0-10); NRBC Flagged by Analyzer 0 % (0-5); Neutrophil # 2.95 X10^3/uL (2.7-7.7); Neutrophil % 52.6 % (47-70); Platelet Count 199 K/mm3 (150-450); RBC Distribution Width CV 16.3 % (11.6-14.6); RBC Distribution Width SD 47.5 fl (35.1-43.9); Red Blood Count 4.88 M/mm3 (4.2-5.4); White Blood Count 5.6 K/mm3 (4.4-11.0)
[2023-12-10] MEDS: Ondansetron 4 MG/2 ML Vial IV (23:32)
[2023-12-10] MEDS: Morphine 4 MG/ML Syringe IV (23:32)
[2023-12-10 23:48] LABS: ALB/GLOB Ratio 1.1 RATIO (0.9-2.4); AST(SGOT) 30 U/L (15-37); Alanine Aminotransfer ALT/SGPT 27 U/L (13-56); Albumin, Serum 3.5 g/dL (3.2-5.0); Alkaline Phosphatase 139 U/L (45-117); Anion Gap 5 (5-15); BUN 10 mg/dL (7-18); BUN/Creat Ratio 10.8 RATIO (10-20); Calcium,Total 8.8 mg/dL (8.5-10.1); Chloride 115 mmol/L (98-107); Creatinine, Serum 0.92 mg/dL (0.55-1.02); EST Glomerular Filtration Rate 64 mL/min (>60); Est Glom Filt Rate - Afr Amer 77 mL/min (>60); Estimated Creatinine Clearance 58.86 ml/min; Globulin 3.2 g/dL (2.2-4.2); Glucose 105 mg/dL (74-106); Lipase 43 U/L (13-75); Potassium 3.7 mmol/L (3.5-5.1); Protein, Total 6.7 g/dL (6.4-8.2); Sodium Level 144 mmol/L (136-145)
[2023-12-11 00:13] VITALS: BP 109/93; PULSE 82; RESP 15; O2SAT 96
[2023-12-11 00:21] LABS: Mucous, Urine 0 SEEN /hpf (<or=2+); Red Blood Cells-Urine 0 SEEN /hpf (0-5)
[2023-12-11 00:31] LABS: Color, Urine Yellow (Yellow); Glucose, Dipstick Normal (Normal); Ketone-Dipstick 5 mg/dl (Negative); Leukocyte Esterase-Dipstick 100 /ul (Negative); Nitrite-Dipstick Positive (Negative); Occult Blood-Urine 25 /ul (Negative); Protein-Dipstick 30 mg/dl (Negative); Urine Clarity Sl. Cloudy (Clear); Urine Urobilinogen 1 mg/dl (Normal); Urine pH 6.5 (5.0 - 8.0)
[2023-12-11 00:40] LABS: Urine Bilirubin Dipstick 1 mg/dL (Negative)
[2023-12-11 00:41] LABS: Bacteria 3+ /hpf (None Seen); Squamous Epithelial Cells - UA 10-25 SEEN /hpf (5-10); White Blood Cells 0-5 SEEN /hpf (0-5)
[2023-12-11 02:00] VITALS: BP 106/54; PULSE 80; RESP 20; O2SAT 95
[2023-12-11 02:46] VITALS: BP 137/84; PULSE 81; RESP 15; O2SAT 94
[2023-12-11 04:00] VITALS: BP 153/66; PULSE 80; RESP 15; O2SAT 95
[2023-12-11] MEDS: 0.9 % NaCl (Sterile) Posiflush 10 mL IV (05:25)
[2023-12-11 05:45] VITALS: BP 153/66; PULSE 80; RESP 15; TEMP 36.6; O2SAT 95
== END 2023-12-11 05:46 | disposition home or self-care (01) ==
PROVIDERS: Emergency Provider Emergency Medicine; PCP Nurse Practitioner Family; Visit Provider Emergency Medicine
DX: R10.11 Right upper quadrant pain (principal); N18.30 Chronic kidney disease, stage 3 unspecified; E66.9 Obesity, unspecified; Z86.711 Personal history of pulmonary embolism; Z79.01 Long term (current) use of anticoagulants
CPT/HCPCS: 36591; 80053; 81001; 83605; 83690; 85025; 96361; 96374; 96375; 99285; P9612; A4216; J2405

== ENCOUNTER 2024-01-15 21:13 | Observation (INO) | payer BC, SELFPAY ==
[2024-01-15] VITALS (7 sets, daily range): BP systolic 112–128; BP diastolic 69–94; PULSE 98–116; RESP 19–28; TEMP 36.3–37.7; O2SAT 88–98; BMI 39.2
--- NOTE | 2024-01-15 21:51 | EKG12_ITS ---
Test Reason : chest pain Blood Pressure : / mmHG Vent. Rate : 077 BPM Atrial Rate : 077 BPM P-R Int : 172 ms QRS Dur : 086 ms QT Int : 412 ms P-R-T Axes : 013 009 -11 degrees QTc Int : 466 ms Normal sinus rhythm Nonspecific T wave abnormality Abnormal ECG When compared with ECG of 15-JAN-2024 22:13, MANUAL COMPARISON REQUIRED, DATA IS UNCONFIRMED Confirmed by NOLBERTO NAVARRO, ANAYELI ([id number]), field map editor MIKE ALMEIDA ([id number]) on 01/22/2024 10:01:23 AM Referred By: Confirmed By:ANAYELI ARVIZU MD
--- NOTE | 2024-01-15 22:00 | RAD_ITS ---
STUDY: X-RAY CHEST REASON FOR EXAM: Female, 73 years old. sob TECHNIQUE: Single AP portable view of the chest. COMPARISON: 10/30/2023 FINDINGS: Right internal jugular chest port which is unchanged. The lungs are clear and expanded. There is no demonstrated pleural abnormality. Normal size heart. Normal mediastinum and jesse. Normal visualized pulmonary arteries. Normal visualized aortic arch and descending thoracic aorta. Normal visualized thoracic spine. Normal visualized ribs, clavicles, and shoulders. There is no demonstrated abnormality of the visualized soft tissue structures of the upper abdomen. RAD/Chest 1 View (Portable) IMPRESSION: No active disease. Electronically Signed: Douglas Mike MD at 22:28 EDT ,
[2024-01-15 22:08] LABS: Absolute Lymphocyte Count 1.09 X10^3/uL (0.83-4.51); Absolute Neutrophil Count 5.2 X10^3/uL (2.0-7.7); Basophil# 0.02 X10^3/uL; Basophil% 0.3 % (0-1); Eosinophil# 0.01 X10^3/uL; Eosinophils% 0.1 % (0-5); Hematocrit 34.9 % (37-47); Hemoglobin 10.9 g/dL (12.0-15.0); Lymphocyte # 1.09 X10^3/ul (0.83-4.51); Lymphocyte % 15.3 % (19-41); Mean Corp Hgb Conc 31.2 g/dL (32-36); Mean Corpuscular Hgb 25.6 pg (27.0-32.0); Mean Corpuscular Volume 81.9 fL (81-99); Mean Platelet Vol. 12.3 fl (6.2-12.0); Monocyte# 0.75 X10^3/uL; Monocyte% 10.5 % (0-10); NRBC Flagged by Analyzer 0 % (0-5); Neutrophil # 5.21 X10^3/uL (2.7-7.7); Neutrophil % 73.1 % (47-70); Platelet Count 203 K/mm3 (150-450); RBC Distribution Width CV 16.2 % (11.6-14.6); RBC Distribution Width SD 47.9 fl (35.1-43.9); Red Blood Count 4.26 M/mm3 (4.2-5.4); White Blood Count 7.1 K/mm3 (4.4-11.0)
--- NOTE | 2024-01-15 22:13 | EKG12_ITS ---
Test Reason : Blood Pressure : / mmHG Vent. Rate : 103 BPM Atrial Rate : 103 BPM P-R Int : 166 ms QRS Dur : 086 ms QT Int : 350 ms P-R-T Axes : 026 031 062 degrees QTc Int : 458 ms Sinus tachycardia Nonspecific T wave abnormality Abnormal ECG Confirmed by RAF NAVARRO, ALENA ([id number]), department editor KATHYA WALKER ([id number]) on 01/22/2024 1:28:38 PM Referred By: Confirmed By:GABRIEL CARBONE MD
[2024-01-15] MEDS: Ipratropium/Albuterol Sulfate 3 ML AMPUL.NEB INHALATION (22:20)
[2024-01-15 22:35] LABS: BNP,B-Type NATRIURETIC PEPTIDE 100.4 pg/mL (0-100)
[2024-01-15 22:36] LABS: Anion Gap 7 (5-15); BUN 15 mg/dL (7-18); BUN/Creat Ratio 8.4 RATIO (10-20); Calcium,Total 8.2 mg/dL (8.5-10.1); Chloride 105 mmol/L (98-107); Creatinine, Serum 1.79 mg/dL (0.55-1.02); EST Glomerular Filtration Rate 30 mL/min (>60); Est Glom Filt Rate - Afr Amer 36 mL/min (>60); Estimated Creatinine Clearance 30.95 ml/min; Glucose 157 mg/dL (74-106); Potassium 3.6 mmol/L (3.5-5.1); Sodium Level 138 mmol/L (136-145); Troponin-I HS (w/2H Reflex) 8 pg/mL (3.0-54.0)
--- NOTE | 2024-01-15 23:03 | EDS_ITS ---
HPI History of Present Illness Chief Complaint: Shortness of Breath Informant: patient Narrative Narrative: Patient presents via EMS secondary to shortness of breath. She reported to EMS that she became shortness of breath 20 minutes before calling squad, however tells me she has had progressive shortness of breath for the past 2 days. She does report that she has had to use more pillows to sleep at night and has more trouble breathing when she lies down. She does have a cough but is not bringing up any sputum. She does report some slight chest pressure. She has not noted fever or chills. She denies history of CHF, COPD, or asthma. She does not wear home oxygen. O2 sat was 90% on room air for EMS and dropped to 88% on arrival to the emergency room. [facility] Medical History Anxiety and depression CKD (chronic kidney disease), stage III Hx of deep venous thrombosis Non-smoker Obesity Pulmonary embolism Seizures Home Medications cyclobenzaprine 10 mg tablet 10 mg PO TID PRN Muscle Spasm #10 TABLETS 10/26/22 [Rx Last Taken 10/29/23] buspirone 5 mg tablet 5 mg PO TID anxiety 05/24/23 [History Last Taken 10/29/23] pregabalin 200 mg capsule 200 mg PO Q8H fibromyalgia 05/24/23 [History Last Taken 10/29/23] quetiapine 100 mg tablet 100 mg PO QHS insomnia 05/24/23 [History Last Taken 10/28/23] rivaroxaban 20 mg tablet (Xarelto) 20 mg PO DAILY #30 tabs 08/11/23 [Rx Last Taken Unknown] venlafaxine 150 mg capsule,extended release 24 hr 150 mg PO DAILY 01/15/24 [History Last Taken Unknown] potassium chloride 20 mEq tablet,extended release (K-Tab) 20 meq PO DAILY 01/16/24 [History Last Taken Unknown] Allergy/AdvReac Type Severity Reaction Status Date / Time adhesive tape [tape] Allergy Rash Verified 01/15/24 21:21 butorphanol [From Stadol] Allergy Other Verified 01/15/24 21:21 Penicillins [PCN] Allergy Swelling Verified 01/15/24 21:21 sumatriptan [From Imitrex] Allergy Other Verified 01/15/24 21:21 Family History Mother Lung cancer Father Alcoholic cirrhosis of liver Alcoholism Surgical History History of cholecystectomy History of orthopedic surgery Hx of hysterectomy Previous back surgery Social History household members: none Smoking Status: Never smoker second hand exposure: Yes alcohol intake: never substance use type: does not use ROS ROS ED Constitutional Constitutional ED: Denies chills or fever(s) ENT ENT ED: Denies rhinorrhea or sore throat Cardiovascular Cardiovascular: Reports chest pain; Denies palpitations Respiratory/Chest Respiratory/Chest: Reports cough and dyspnea; Denies sputum Gastrointestinal Gastrointestinal: Denies abdominal pain, nausea or vomiting Genitourinary Genitourinary ED: Denies dysuria Musculoskeletal Musculoskeletal: Denies back pain or extremity pain Integumentary Denies Abrasions or rash Neurologic Neurologic: Reports weakness; Denies headache(s) Psychiatric Psychiatric: Denies anxiety or depression Allergic/Immunologic Allergic/Immunologic ED: Denies lip swelling or urticaria EXAM Physical Exam Const Vital Signs: 01/15/24 21:14 01/15/24 21:22 01/15/24 22:14 Temperature 97.4 F L 97.4 F L Temperature Source Oral Oral Pulse Rate 116 H 102 H Respiratory Rate 28 H 22 H Respiratory Effort Short of Breath Respiratory Depth Normal Respiratory Pattern Normal Blood Pressure 128/72 H 128/72 H Blood Pressure Mean 90 90 Pulse Ox 90 95 Oxygen Delivery Method Room Air Nasal Cannula Room Air Oxygen Flow Rate (L/min) 2 01/15/24 22:20 01/15/24 22:20 01/15/24 22:21 Temperature 99.3 F H Temperature Source Oral Pulse Rate 104 H 98 Respiratory Rate 20 H 20 H Respiratory Effort Respiratory Depth Respiratory Pattern Normal Blood Pressure 128/69 H Blood Pressure Mean 88 Pulse Ox 98 98 Oxygen Delivery Method Nasal Cannula Nasal Cannula Oxygen Flow Rate (L/min) 2 2 01/15/24 23:00 01/16/24 00:00 01/15/24 21:20 Temperature 99.8 F H 99.9 F H Temperature Source Oral Oral Pulse Rate 98 113 H Respiratory Rate 19 H 18 Respiratory Effort Respiratory Depth Respiratory Pattern Blood Pressure 112/94 H 126/94 H Blood Pressure Mean 100 104 Pulse Ox 96 92 88 Oxygen Delivery Method Nasal Cannula Nasal Cannula Room Air Oxygen Flow Rate (L/min) 2 2 Positive well nourished and well developed General Appearance ED: well developed HEENT Reports moist mucous membranes Eyes EOMs intact bilaterally Chest Wall inspection of chest normal and palpation of chest normal Resp Resp Narrative: Mild tachypnea with diminished breath sounds bilateral bases. Cardio regular rhythm Rate: tachycardic GI non-tender Palpation: soft Extremity normal to inspection Neuro oriented x3 and no sensory deficits noted Psych Psych Narrative: Flat affect Skin no rashes or lesions noted MDM MDM MDM Narrative Medical decision making narrative: Patient placed on mobile practice lead. EKG obtained to evaluate for cardiac arrhythmia/ischemia. Chest x-ray obtained to evaluate for acute lung pathology, cardiac size, or mediastinal abnormality. IV line established. Labwork obtained to evaluate for leukocytosis, anemia, and electrolyte derangement. Swab for COVID, influenza, and RSV will be obtained. DuoNeb treatment ordered. Patient is currently on Xarelto and denies missing any doses. I do not believe she needs to be evaluated for pulmonary embolism History & Record Review Discussion w/independent historian: Patient Additional record(s) reviewed:: Prior inpatient record, Prior ED visit and Prior labs Lab Data Attestation: I reviewed the patient's lab results. Labs: Laboratory Results - last 24 hr 01/15/24 22:02 WBC 7.1 RBC 4.26 Hgb 10.9 L Hct 34.9 L MCV 81.9 MCH 25.6 L MCHC 31.2 L RDW Std Deviation 47.9 H RDW Coeff of Farzad 16.2 H Plt Count 203 MPV 12.3 H Immature Gran % (Auto) 0.700 Neut % (Auto) 73.1 H Lymph % (Auto) 15.3 L [place] % (Auto) 10.5 H Eos % (Auto) 0.1 Baso % (Auto) 0.3 Absolute Neuts (auto) 5.2 Absolute Lymphs (auto) 1.09 Nucleated RBC % 0 Sodium 138 Potassium 3.6 Chloride 105 Carbon Dioxide 26.0 Anion Gap 7 BUN 15 Creatinine 1.79 H Estim Creat Clear Calc 30.95 Est GFR (MDRD) Af Amer 36 L Est GFR (MDRD) Non-Af 30 L BUN/Creatinine Ratio 8.4 L Glucose 157 H Calcium 8.2 L Troponin I High Sens 8 B-Natriuretic Peptide 100.4 H Radiography Chest X-Ray - ED: 1 View, Read by ED Physician, Chronic Changes and Right Infiltrate Diagnostic Testing: Clinical Impression(s) from Imaging Studies Chest X-Ray 01/15/24 22:00 IMPRESSION: No active disease. Electronically Signed: Douglas Mike MD at 22:28 EDT , EKG Initial EKG: Attestation: I personally reviewed and interpreted this EKG as follows: Interpretation: Sinus Tachycardia (Sinus tach at 103 with nonspecific T wave flattening throughout. Similar to prior study from October.) Treatment and Re-Evaluation :: CBC was normal white count 7.1 with 73% neutrophils. Hemoglobin is 10.9. Chemistry studies reveal a BUN of 15 and a creatinine 1.79. Her baseline creatinine is around 1. Glucose is elevated at 157. Troponin is normal at 8 and BNP only slightly elevated at 100.4. Portable chest x-ray per my interpretation reveals chronic changes with what looks like a persistent slightly worsened right upper lobe infiltrate when compared to prior study. Radiology interpretation is reviewed and the read the study is no active disease. Swab for COVID, influenza, and RSV is negative. Patient's temperature has slowly been climbing and is now 99.9. I will have nursing staff draw blood cultures prior to initiation of Rocephin and Zithromax. Patient is given a dose of Tylenol. On repeat lung auscultation she does have coarse breath sounds bilaterally. She does feel that she had some improvement with the DuoNeb treatment and another treatment will be ordered at this time. I will speak with hospitalist regarding admission. Discharge Plan Dx/Rx/DC Orders Clinical Impression: Pneumonia, HECTOR (acute kidney injury) Disposition Disposition: Acute Care Hospital [facility]
[2024-01-16] VITALS (12 sets, daily range): BP systolic 116–157; BP diastolic 74–94; PULSE 74–118; RESP 10–20; TEMP 36.3–38.3; O2SAT 92–100; BMI 36.7
[2024-01-16 00:05] LABS: Reflex Troponin-HS? (from REC) Y
--- NOTE | 2024-01-16 00:25 | PCM.HP.STD ---
[facility] - General General Date of Admission: 01/16/24 Date of Service: 01/16/24 Chief Complaint: Shortness of Breath. HPI Narrative PRINCESS TO, is a 73 F with a past medical history of obesity; with BMI of 39.3 this admission, history of DVT/PE; on Xarelto, CKD; stage III, history of seizures, RLS, depression with anxiety, osteoarthritis; with history of back surgery and chronic back pain and history of right upper lobe pneumonia; with lactic acidosis and hypotension admitted here from October 29, 2023 to November 01, 2023 who presents to [facility] complaining of shortness of breath. Ms. To reports her symptoms began approximately 2 days prior to admission with a gradual onset of dyspnea on exertion that progressed to shortness of breath at rest. Then approximately 20 minutes prior to arrival she activated 911 due to an acute worsening of her already severe shortness of breath. She admits that she has to use more pillows to sleep at night and has more trouble breathing when she lies down flat. She admits to having a cough but has essentially been nonproductive until breathing treatments were administered in the ER. She denies associated fever, chills, nausea, vomiting, history of CHF, history of COPD or known history of asthma and she does not wear home oxygen but she does admit to a syncopal event, racing heartbeat and chest pain made worse with cough. When EMS arrived she was noted to be 90% on room air and dropped to 88% on room air in the ER. In the ER she was diagnosed with suspected acute bronchitis and possible right upper lobe pneumonia complicated by clinical evidence of acute hypoxic respiratory insufficiency and she was then admitted to the general medical floor for ongoing care for status expected to be greater than 48 hours. [facility] Medical History (Updated 01/16/24 @ 03:[address] Bull Harris, DO) Anxiety and depression CKD (chronic kidney disease), stage III Hx of deep venous thrombosis Non-smoker Obesity Pulmonary embolism Seizures Home Medications cyclobenzaprine 10 mg tablet 10 mg PO TID PRN Muscle Spasm #10 TABLETS 10/26/22 [Rx Last Taken 10/29/23] buspirone 5 mg tablet 5 mg PO TID anxiety 05/24/23 [History Last Taken 10/29/23] pregabalin 200 mg capsule 200 mg PO Q8H fibromyalgia 05/24/23 [History Last Taken 10/29/23] quetiapine 100 mg tablet 100 mg PO QHS insomnia 05/24/23 [History Last Taken 10/28/23] rivaroxaban 20 mg tablet (Xarelto) 20 mg PO DAILY #30 tabs 08/11/23 [Rx Last Taken Unknown] venlafaxine 150 mg capsule,extended release 24 hr 150 mg PO DAILY 01/15/24 [History Last Taken Unknown] potassium chloride 20 mEq tablet,extended release (K-Tab) 20 meq PO DAILY 01/16/24 [History Last Taken Unknown] Allergy/AdvReac Type Severity Reaction Status Date / Time adhesive tape [tape] Allergy Rash Verified 01/15/24 21:21 butorphanol [From Stadol] Allergy Other Verified 01/15/24 21:21 Penicillins [PCN] Allergy Swelling Verified 01/15/24 21:21 sumatriptan [From Imitrex] Allergy Other Verified 01/15/24 21:21 Family History Mother Lung cancer Father Alcoholic cirrhosis of liver Alcoholism Surgical History History of cholecystectomy History of orthopedic surgery Hx of hysterectomy Previous back surgery Social History household members: none Smoking Status: Never smoker second hand exposure: Yes alcohol intake: never substance use type: does not use ROS ROS Narrative Review of systems: General: Patient denies fever or chills. HENT: Denies headache, denies stuffy nose, denies sore throat EYES: Denies changes in vision or discharge from eyes. Resp: Patient admits to dyspnea on exertion that progressed to shortness of breath at rest with primarily nonproductive cough as per HPI. Cardiac: Patient admits to chest pain made worse with cough in addition to racing heartbeat and syncopal event as per HPI. GI: Denies abdominal pain, denies changes in bowel, denies nausea or vomiting. : Denies changes in urination Extremity: Denies swelling Musculoskeletal: Patient admits to arthralgias and back pain with myalgias. She denies neck pain. Neuro: Denies any numbness/tingling Heme: Patient admits to easy bleeding and easy bruising since being on Xarelto. Skin: Denies rashes Psychiatric: No complaints voiced related to uncontrolled depression or anxiety. Endocrine: No polyuria, polydipsia or polyphagia. The rest of the 14 point ROS was negative except for positives in HPI. Vital Signs Vital Signs Vital Signs: 01/15/24 21:14 01/15/24 21:22 01/15/24 22:14 Temperature 97.4 F L 97.4 F L Temperature Source Oral Oral Pulse Rate 116 H 102 H Respiratory Rate 28 H 22 H Respiratory Effort Short of Breath Respiratory Depth Normal Respiratory Pattern Normal Blood Pressure 128/72 H 128/72 H Blood Pressure Mean 90 90 Pulse Ox 90 95 Oxygen Delivery Method Room Air Nasal Cannula Room Air Oxygen Flow Rate (L/min) 2 01/15/24 22:20 01/15/24 22:20 01/15/24 22:21 Temperature 99.3 F H Temperature Source Oral Pulse Rate 104 H 98 Respiratory Rate 20 H 20 H Respiratory Effort Respiratory Depth Respiratory Pattern Normal Blood Pressure 128/69 H Blood Pressure Mean 88 Pulse Ox 98 98 Oxygen Delivery Method Nasal Cannula Nasal Cannula Oxygen Flow Rate (L/min) 2 2 01/15/24 23:00 01/16/24 00:00 01/15/24 21:20 Temperature 99.8 F H 99.9 F H Temperature Source Oral Oral Pulse Rate 98 113 H Respiratory Rate 19 H 18 Respiratory Effort Respiratory Depth Respiratory Pattern Blood Pressure 112/94 H 126/94 H Blood Pressure Mean 100 104 Pulse Ox 96 92 88 Oxygen Delivery Method Nasal Cannula Nasal Cannula Room Air Oxygen Flow Rate (L/min) 2 2 Weight Weight: 214 lb 11.684 oz Body Mass Index (BMI) 39.2 Physical Exam Const alert, oriented x3 and average body habitus General Appearance: cooperative HEENT normocephalic, head/scalp atraumatic, hearing grossly normal bilaterally and moist oral mucous membranes Eyes PERRL and EOMs intact bilaterally Neck no lymphadenopathy and supple Resp Resp Narrative: Decreased breath sounds over right upper lobe with tenderness to palpation over left posterior ribs 7-9 with bruising noted. Cardio regular rate and regular rhythm GI normal to inspection, nondistended, normoactive bowel sounds, soft to palpation, non-tender and non-distended Extremity normal to inspection and full ROM Skin Skin Narrative: Patient has no evidence of jaundice or rash. Neuro oriented x3, CN's II-XII intact bilaterally, moves all extremities and no focal motor deficits Sensorium / Orientation: awake, alert, oriented to person, oriented to place and oriented to time Speech: speech normal Motor Exam: strength 5/5 throughout Psych affect normal Results Medical Records Data Attestation: I reviewed the patient's medical records Lab / Micro Data Attestation: I reviewed the patient's lab results. 01/15/24 22:02 01/15/24 22:02 Labs: Laboratory Results - last 24 hr 01/15/24 22:02: WBC 7.1, RBC 4.26, Hgb 10.9 L, Hct 34.9 L, MCV 81.9, MCH 25.6 L, MCHC 31.2 L, RDW Std Deviation 47.9 H, RDW Coeff of Farzad 16.2 H, Plt Count 203, MPV 12.3 H, Immature Gran % (Auto) 0.700, Neut % (Auto) 73.1 H, Lymph % (Auto) 15.3 L, [place] % (Auto) 10.5 H, Eos % (Auto) 0.1, Baso % (Auto) 0.3, Absolute Neuts (auto) 5.2, Absolute Lymphs (auto) 1.09, Nucleated RBC % 0, Sodium 138, Potassium 3.6, Chloride 105, Carbon Dioxide 26.0, Anion Gap 7, BUN 15, Creatinine 1.79 H, Estim Creat Clear Calc 30.95, Est GFR (MDRD) Af Amer 36 L, Est GFR (MDRD) Non-Af 30 L, BUN/Creatinine Ratio 8.4 L, Glucose 157 H, Calcium 8.2 L, Troponin I High Sens 8, B-Natriuretic Peptide 100.4 H Micro: Microbiology 01/15/24 22:11 Mucosa - Nose SARS-CoV-2, Influenza & RSV (PCR) - Final Imaging Radiology Impression Chest X-Ray 01/15/24 22:00 IMPRESSION: No active disease. Electronically Signed: Douglas Mike MD at 22:28 EDT , Assessment & Plan Assessment/Plan (1) Acute bronchitis: QUALIFIERS: Bronchitis organism: unspecified organism Qualified Code(s): J20.9 - Acute bronchitis, unspecified (2) Pneumonia: QUALIFIERS: Laterality: right Lung location: upper lobe of lung Pneumonia type: due to unspecified organism Qualified Code(s): J18.9 - Pneumonia, unspecified organism (3) Respiratory insufficiency: (4) Obesity: QUALIFIERS: Body mass index: BMI 39.0-39.9 Obesity classification: adult class 2 (BMI 35 - 39.9) Obesity type: unspecified obesity type Serious obesity comorbidity presence: with serious comorbidity Qualified Code(s): E66.01 - Morbid (severe) obesity due to excess calories; Z68.39 - Body mass index [BMI] 39.0-39.9, adult (5) Syncope and collapse: PLAN: Plan 1. Acute Bronchitis with suspected Right upper lobe pneumonia in the setting of previous admission here from October 29, 2023 to November 01, 2023 for treatment of similar condition - Admit to general medical floor. Continue broad-spectrum antibiotics with IV Rocephin and IV azithromycin begun in the ER and await culture and sensitivity data. Check urine antigens to Legionella and S. pneumoniae. Give Mucinex 600 mg p.o. twice daily scheduled. Give Tylenol as needed pain or fever. Her swabs for COVID-19, influenza and RSV are negative. 2. Acute hypoxic respiratory insufficiency due to #1 - Wean supplemental oxygen as tolerated. 3. Obesity; with BMI of 39.3 this admission with suspected obstructive sleep apnea complicating #1 & #2 - Weight loss will be recommended. Patient will be started on empiric nocturnal CPAP. 4. Syncopal event with bruising to the left posterior ribs 7-9 compounding #1 to #3 - Continue supportive care and monitor for improvement. Both echocardiogram and carotid Doppler were obtained in October 2023 with no acute pathologic findings noted. PT/OT and case management consult and treat on rounds in the a.m. with help appreciated in advance. 5. History of DVT/PE; on Xarelto - Continue Xarelto. 6. CKD; stage III - Stable. 7. History of seizures - 8. RLS - Resume Requip as previous. 9. Depression with anxiety - Continue current regimen. 10. Osteoarthritis; with history of back surgery and chronic back pain - Stable. 11. DVT prophylaxis - Patient already on Xarelto for #4 which will be continued. Total time: Approximately 55 minutes. Charges/Coding Visit Charges Inpatient E&M: 12186 Init Hosp L2
[2024-01-16] MEDS: Acetaminophen 500 MG Tablet 1000 MG PO (00:26)
--- NOTE | 2024-01-16 00:26 | CT_ITS ---
INDICATION: pneumonia EXAMINATION: CT CHEST WITHOUT CONTRAST - CT Chest W/O Contrast Injection TECHNIQUE: Helically acquired images were obtained of the chest. A radiation dose optimization technique was used for this scan. IV Contrast dosage and agent: None. RADIATION DOSAGE (If Supplied By Facility): CTDIvol = ( 16.76 ) mGy, DLP = ( 577.78 ) mGycm COMPARISON: 10/29/2023 FINDINGS: LUNGS, PLEURA AND LARGE AIRWAYS: There are a few nodular opacities in the posterior segment of the right upper lobe measuring up to 4 mm with adjacent pleural parenchymal scarring, unchanged from prior . Lungs otherwise clear. No pleural effusion or thickening. No pneumothorax. THYROID: No thyroid lesions. HEART AND PERICARDIUM: Heart size is normal. No pericardial effusion. CORONARY ARTERIES: Coronary artery calcification is seen. VESSELS: Thoracic aorta is not dilated. MEDIASTINUM AND ESTEBAN: No mediastinal or hilar adenopathy. Calcified mediastinal and bilateral hilar lymph nodes redemonstrated. Esophagus is patulous and fluid-filled. No hiatal hernia. UPPER ABDOMEN: No acute pathology. Hepatic steatosis. BONES: No suspicious lytic or blastic abnormality. CT/Chest without Contrast IMPRESSION: * No acute findings to explain the patient''s symptomatology. * Unchanged nodular opacities in the posterior segment of the right upper lobe measuring up to 4 mm. According to the updated 2017 Fleischner Society recommendations, the advised follow-up imaging for solid nodules < 6 mm is: LOW RISK PATIENT: No routine follow-up. HIGH RISK PATIENT: Optional CT at 12 months. * Hepatic steatosis. Electronically Signed: Bull Nuñez MD at 5:20 EDT ,
[2024-01-16] MEDS: Ipratropium/Albuterol Sulfate 3 ML AMPUL.NEB INHALATION (00:27)
[2024-01-16 00:35] LABS: Troponin-I HS 7 pg/mL (3.0-54.0)
[2024-01-16] MEDS: 0.9% Normal Saline (1000mL) 1,000 ML 150 ML IV (00:58)
[2024-01-16] MEDS: Ceftriaxone 1 GM/50 ML BAG IV (01:11)
[2024-01-16] MEDS: Azithromycin 500 MG in Dextrose 5%-Water (250mL Bag) 250 ML 250 MG IV (01:50)
[2024-01-16] MEDS: Ibuprofen 600 MG Tablet PO (02:13)
[2024-01-16 02:18] LABS: Lactic Acid 1.2 mmol/L (0.4-1.9)
[2024-01-16] MEDS: 0.9% Normal Saline (1000mL) 1,000 ML 60 ML IV ×2 (03:17→20:21)
[2024-01-16] MEDS: Pregabalin 50 MG Capsule 200 MG PO ×3 (03:54→18:15)
[2024-01-16] MEDS: busPIRone 5 MG Tablet PO ×3 (06:31→20:20)
--- NOTE | 2024-01-16 10:11 | CASEMGMT ---
MATTHEW JJ Assessment Face to Face with patient for initial transition planning/care coordination assessment. MATTHEW JJ introduced self and role at [facility], pt voices understanding. Pt is A&Ox4 and is resting comfortably in bed and is calm. Pt is currently on Room Air. Care providers, pharmacy, and demographics verified. Admitting dx: Right Upper Lobe Pneumonia with Acute Hypoxia LACE Strata: 2 PCP: Michelle Moon Specialists: Denies [facility]erred [facility] Pres[facility] Benefit: Yes LNOK: Quin Jerry (Sister) Living Arrangements: Pt lives alone in a single story apartment with 2 steps to enter without handrailing ADLs/IADLs: States ind. Pt states that she gets meals delivered to her apartment at times and also takes her clothes to the laundromat Transportation: Self. Cab services. DME: Denies home O2 use. Pt is currently maintaining adequate oxygen saturation levels on room air. Pt states that she has a cane at home. Shower seat with grab bar. HHC/SNF: Denies history or needs Pt?s goal: Home no needs Plan: Pt 6-click is 19. No therapy ordered on this pt. Pt denies HHC, OP therapy, and SNF placement at this time. Pt states that she wishes to DC home with no additional needs at time of assessment. Pt educated to contact CM if she changes her mind. CM to follow for safe DC from [facility]. Sharifa Black RN, CM
[2024-01-16] MEDS: Lactobacillis Acidophilus 2 CAP PO ×2 (10:15→20:20)
[2024-01-16] MEDS: Potassium Chloride Oral Tablet 20 MEQ PO (10:16)
[2024-01-16] MEDS: Venlafaxine XR 150 MG Capsule PO (10:16)
[2024-01-16] MEDS: guaiFENesin 600 MG Tablet PO ×2 (10:16→20:26)
[2024-01-16] MEDS: predniSONE 20 MG Tablet 60 MG PO (10:18)
[2024-01-16] MEDS: Acetaminophen 325 MG Tablet 650 MG PO (10:33)
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
--- NOTE | 2024-01-16 17:02 | PCM.PN.HOSP ---
Reason for Visit Reason for Visit: Diagnoses Morbid (severe) obesity due to excess calories (01/16/24) Pneumonia, unspecified organism (01/16/24) Acute bronchitis, unspecified (01/16/24) Other abnormalities of breathing (01/16/24) Syncope and collapse (01/16/24) Body mass index [BMI] 39.0-39.9, adult (01/16/24) Subjective Subjective Patient was seen and examined today, she still having wheezing, however she is on room air at this time. Patient takes methadone chronically-she states history of chronic pain, however she goes to the methadone clinic. I was not able to contact them today I left a message to confirm her dosage. I was never contacted back from the clinic. I have elected to place the patient on 10 mg of methadone twice a day. Objective Data Objective Data Vital Signs: Vital Signs Temp Pulse Resp BP Pulse Ox O2 Del Method O2 Flow Rate 97.4 F L 86 16 124/87 H 95 Room Air 1 01/16/24 14:23 01/16/24 14:23 01/16/24 14:23 01/16/24 14:23 01/16/24 14:23 01/16/24 14:23 01/16/24 03:26 FiO2 25 01/16/24 03:30 Oxygen Flow Rate (L/min) 1 Oxygen Delivery Method Room Air Weight: 91.1 kg Body Mass Index (BMI) 36.7 Intake & Output: Intake and Output for Last 24 Hours 01/14/24 01/15/24 01/16/24 23:59 23:59 23:59 Intake Total 1951 Output Total 0 / 0 Balance 1951 Lab / Micro Data 01/15/24 22:02 01/15/24 22:02 Labs: Laboratory Results - last 24 hr 01/15/24 22:02: WBC 7.1, RBC 4.26, Hgb 10.9 L, Hct 34.9 L, MCV 81.9, MCH 25.6 L, MCHC 31.2 L, RDW Std Deviation 47.9 H, RDW Coeff of Farzad 16.2 H, Plt Count 203, MPV 12.3 H, Immature Gran % (Auto) 0.700, Neut % (Auto) 73.1 H, Lymph % (Auto) 15.3 L, Pine % (Auto) 10.5 H, Eos % (Auto) 0.1, Baso % (Auto) 0.3, Absolute Neuts (auto) 5.2, Absolute Lymphs (auto) 1.09, Nucleated RBC % 0, Sodium 138, Potassium 3.6, Chloride 105, Carbon Dioxide 26.0, Anion Gap 7, BUN 15, Creatinine 1.79 H, Estim Creat Clear Calc 30.95, Est GFR (MDRD) Af Amer 36 L, Est GFR (MDRD) Non-Af 30 L, BUN/Creatinine Ratio 8.4 L, Glucose 157 H, Calcium 8.2 L, Troponin I High Sens 8, B-Natriuretic Peptide 100.4 H 01/16/24 00:00: Troponin I High Sens 7 01/16/24 01:49: Lactic Acid 1.2 Micro: Microbiology 01/16/24 09:25 Mucosa - Nose Respiratory Panel (PCR) - Final 01/15/24 22:11 Mucosa - Nose SARS-CoV-2, Influenza & RSV (PCR) - Final Radiography Diagnostic Testing: Radiology Impression Chest X-Ray 01/15/24 22:00 IMPRESSION: No active disease. Electronically Signed: Douglas Mike MD at 22:28 EDT , Chest CT 01/16/24 00:26 IMPRESSION: * No acute findings to explain the patient''s symptomatology. * Unchanged nodular opacities in the posterior segment of the right upper lobe measuring up to 4 mm. According to the updated 2017 Fleischner Society recommendations, the advised follow-up imaging for solid nodules < 6 mm is: LOW RISK PATIENT: No routine follow-up. HIGH RISK PATIENT: Optional CT at 12 months. * Hepatic steatosis. Electronically Signed: Bull Nuñez MD at 5:20 EDT , Physical Exam Const alert, oriented x3 and no apparent distress Constitutional Narrative: Patient is a poor informant, she appears older than her stated age General Appearance: cooperative, well kempt and well developed Orientation / Consciousness: awake, oriented to person, oriented to place and oriented to time HEENT normocephalic, head/scalp atraumatic and moist oral mucous membranes Eyes PERRL, EOMs intact bilaterally and conjunctivae normal Neck supple, no JVD, thyroid normal and no carotid bruits General: trachea midline Resp normal respiratory effort Resp Narrative: Patient has expiratory wheezes bilaterally along with a barking cough Auscultation: wheezes; Negative for rales or rhonchi Cardio regular rate, regular rhythm, S1 normal heart sound, S2 normal heart sound, no murmurs, no rub and no gallops GI normal to inspection, nondistended, normoactive bowel sounds, soft to palpation, non-tender and non-distended Extremity normal to inspection and no clubbing, cyanosis or edema Skin no rashes or lesions noted General Skin Exam: no breakdown Neuro oriented x3, CN's II-XII intact bilaterally, moves all extremities, no focal motor deficits and no sensory deficits noted Sensorium / Orientation: awake and alert Speech: speech normal Psych affect normal Assessment & Plan Assessment/Plan (1) Acute bronchitis: QUALIFIERS: Bronchitis organism: unspecified organism Qualified Code(s): J20.9 - Acute bronchitis, unspecified PLAN: Plan 1. Asthmatic bronchitis-patient will remain on aerosol treatments and I will change her from oral prednisone to IV Solu-Medrol, patient will be reevaluated tomorrow #2 hypoxia-resolved at this time, pulse ox will be monitored #3 methadone dependence-patient is on a daily dose of methadone, she cannot tell me what dose it is and I am unable to get a hold of the methadone treatment center. I have elected to place the patient on 10 mg of methadone twice a day #4 chronic depression-patient is on Effexor #5 chronic use of anticoagulant-patient had a past history of PE in 2022 #6 bipolar disorder-I talked with the patient's sister by phone today and she told me the patient has a history of bipolar disorder-patient is on Seroquel #7 chronic kidney disease stage IIIb-complicates care, management, recovery, and prognosis Total clinical time spent by myself addressing the patient's medical issues, reviewing all of her data, and collaborating with patient's care team: 50 minutes Charges/Coding Visit Charges Inpatient E&M: 31246 Subs Hosp L3
[2024-01-16] MEDS: Rivaroxaban 20 MG Tablet PO (17:22)
[2024-01-16] MEDS: Methadone 10 MG Tablet PO (18:15)
[2024-01-16] MEDS: Azithromycin 250 MG Tablet 500 MG PO (18:15)
[2024-01-16] MEDS: QUEtiapine 100 MG Tablet PO (20:20)
[2024-01-17 02:00] VITALS: BP 124/71; PULSE 71; RESP 18; TEMP 36.6; O2SAT 92
[2024-01-17] MEDS: Pregabalin 50 MG Capsule 200 MG PO ×2 (05:05→11:53)
[2024-01-17] MEDS: busPIRone 5 MG Tablet PO ×2 (05:08→14:03)
[2024-01-17 07:47] VITALS: BP 109/50; PULSE 85; RESP 18; TEMP 36.8; O2SAT 96
[2024-01-17] MEDS: Potassium Chloride Oral Tablet 20 MEQ PO (07:50)
[2024-01-17] MEDS: Lactobacillis Acidophilus 2 CAP PO (07:50)
[2024-01-17] MEDS: Venlafaxine XR 150 MG Capsule PO (07:50)
[2024-01-17] MEDS: guaiFENesin 600 MG Tablet PO (07:51)
[2024-01-17 08:20] VITALS: O2SAT 95
--- NOTE | 2024-01-17 08:40 | RAD_ITS ---
STUDY: X-RAY CHEST REASON FOR EXAM: Female, 73 years old. Pneumonia-486 TECHNIQUE: Frontal and lateral views of the chest. COMPARISON: 01/15/2024. FINDINGS: Stable right IJ indwelling medication catheter terminating about the level of the cavoatrial junction. The lungs are clear and expanded. There is no demonstrated pleural abnormality. Normal size heart. Normal mediastinum and jesse. Normal visualized pulmonary arteries. Normal visualized aortic arch and descending thoracic aorta. There are diffuse degenerative changes of the visualized thoracic spine. Normal visualized ribs, clavicles, and shoulders. There is no demonstrated abnormality of the visualized soft tissue structures of the upper abdomen. RAD/Chest PA and Lateral IMPRESSION: No definite acute or significant abnormality seen. Electronically Signed: Luis Zhang MD at 22:48 EDT ,
[2024-01-17] MEDS: Methadone 10 MG Tablet PO ×2 (10:28→16:02)
[2024-01-17 14:09] VITALS: BP 143/87; PULSE 86; RESP 18; TEMP 36.8; O2SAT 95
--- NOTE | 2024-01-17 15:39 | PCM.DC ---
Discharge Instructions Diet Discharge Diet: No restrictions Activity Discharge Activity: Return to Normal Activity Weight Bearing Status: Full weight bearing Follow Up Care Test Results: Test results from this visit will be discussed in further detail at your follow-up appointment, if applicable. Discharge Plan Admission Admit Date/Time: 01/16/24 00:45 Primary Reason for Your Visit: bronchitis Attending Provider: Canelo Norieag Primary Care Provider: Michelle Moon Consulting Providers: Bull Harris Discharge Orders/Prescriptions Prescriptions: Continued cyclobenzaprine 10 mg tablet 10 mg PO TID PRN (Reason: Muscle Spasm) Qty: 10 0RF Patient Comments: PT STATES DOES NOT TYPICALLY TAKE TID quetiapine 100 mg tablet 100 mg PO QHS buspirone 5 mg tablet 5 mg PO TID pregabalin 200 mg capsule 200 mg PO Q8H Xarelto 20 mg tablet 20 mg PO DAILY Qty: 30 0RF Rx Instructions: must administer with evening meal venlafaxine 150 mg capsule,extended release 24hr 150 mg PO DAILY potassium chloride [K-Tab] 20 mEq tablet extended release 20 meq PO DAILY Referrals / Follow Up: Michelle Moon, [employer] [Primary Care Provider] - Within 1 Month Disposition Disposition (needs filled in before D/C Order can be placed): Home, Self Care
--- NOTE | 2024-01-17 15:53 | DS.PCM_ITS ---
Providers Date of Admission: 01/16/24 Date of Discharge: 01/17/24 Primary Care Physician: Michelle Moon, [employer] Reason For Visit: RIGHT UPPER LOBE PNEUMONIA WITH ACUTE HYPOXIC Diagnosis Discharge Diagnosis (1) Acute bronchitis: Status: Acute Code(s): J20.9 - Acute bronchitis, unspecified Qualifiers: Bronchitis organism: unspecified organism Qualified Code(s): J20.9 - Acute bronchitis, unspecified Plan 1. Asthmatic bronchitis-patient will remain on aerosol treatments and I will change her from oral prednisone to IV Solu-Medrol, patient will be reevaluated tomorrow #2 hypoxia-resolved at this time, pulse ox will be monitored #3 methadone dependence-patient is on a daily dose of methadone, she cannot tell me what dose it is and I am unable to get a hold of the methadone treatment center. I have elected to place the patient on 10 mg of methadone twice a day #4 chronic depression-patient is on Effexor #5 chronic use of anticoagulant-patient had a past history of PE in 2022 #6 bipolar disorder-I talked with the patient's sister by phone today and she told me the patient has a history of bipolar disorder-patient is on Seroquel #7 chronic kidney disease stage IIIb-complicates care, management, recovery, and prognosis Total clinical time spent by myself addressing the patient's medical issues, reviewing all of her data, and collaborating with patient's care team: [facility] Medications at Discharge Home Medications cyclobenzaprine 10 mg tablet 10 mg PO TID PRN Muscle Spasm #10 TABLETS 10/26/22 buspirone 5 mg tablet 5 mg PO TID anxiety 05/24/23 pregabalin 200 mg capsule 200 mg PO Q8H fibromyalgia 05/24/23 quetiapine 100 mg tablet 100 mg PO QHS insomnia 05/24/23 rivaroxaban 20 mg tablet (Xarelto) 20 mg PO DAILY #30 tabs 08/11/23 venlafaxine 150 mg capsule,extended release 24 hr 150 mg PO DAILY 01/15/24 potassium chloride 20 mEq tablet,extended release (K-Tab) 20 meq PO DAILY 01/16/24 Hospital Course Operations None Procedures None Summary of Care Provided Minutes Spent on Discharge: 31 Hospital Course: 73-year-old white female was seen in the emergency room at [facility] with complaints of cough and shortness of breath. Chest x-ray was performed which did not show any evidence of pneumonia or congestive heart failure, patient was walked in the ER and her pulse ox dropped below 88% so she was admitted to [facility] for further treatment. Patient received IV corticosteroids and aerosol treatments, initially she was placed on antibiotics due to concerns that she might have pneumonia-this examiner did not feel she had pneumonia. Patient improved during her hospital stay. On 01/17/2024 patient was seen and examined: On examination she appeared in good health and spirits, she does not appear to be in any distress. Vital signs as documented. Skin warm and dry and without overt rashes. Neck without JVD, thyroid appears normal, trachea is midline, neck is supple. Lungs clear, normal air movement was noted. Heart exam notable for regular rhythm, normal sounds and absence of murmurs, rubs or gallops. Abdomen unremarkable and without evidence of organomegaly, masses, or abdominal aortic enlargement, bowel sounds are present in all 4 quadrants, no abdominal tenderness was noted. Extremities nonedematous, no cyanosis was noted, no clubbing was noted. Neuro: Cranial nerves II through XII are grossly intact, no focal motor deficits were noted, sensation to light touch and pinprick is intact, motor exam 5/5 throughout. Psych: Patient is alert and oriented x3, she does not appear anxious or depressed, she does not appear agitated. On 01/17/2024 patient appeared to be stable for discharge home Weight / BMI Weight Weight: 91.1 kg Body Mass Index (BMI) 36.7 ABG / Lab / Microbiology Data 01/15/24 22:02 01/15/24 22:02 Microbiology: Microbiology 01/16/24 09:25 Mucosa - Nose Respiratory Panel (PCR) - Final 01/15/24 22:11 Mucosa - Nose SARS-CoV-2, Influenza & RSV (PCR) - Final D/C Instructions Discharge Diet: No restrictions Weight Bearing Status: Full weight bearing Meaningful Use Info Meaningful Use Meaningful Use Diagnoses (Choose all that apply): None applicable Ischemic Stroke Statin Dosing Therapy Reference: STATIN DOSE THERAPY REFERENCE: * Patients > 75 years receive moderate or high dose statin therapy. * Patients 75 years or YOUNGER should receive HIGH intensity statin dose unless contraindicated. You will be required to document reason for non-treatment if statin daily dose does not meet guidelines. HIGH DOSE STATIN THERAPY DAILY Atorvastatin > than or = to 40 mg Rosuvastatin > than or = to 20 mg Amlodipine + Atorvastatin > than or = to 2.5/40 mg Ezetimibe + Simvastatin 10/80 mg Simvastatin 80mg Discharge Plan Admission Admit Date/Time: 01/16/24 00:45 Primary Reason for Your Visit: bronchitis Attending Provider: Canelo Noriega Primary Care Provider: Michelle Moon Consulting Providers: Bull Harris Discharge Orders/Prescriptions Prescriptions: Continued cyclobenzaprine 10 mg tablet 10 mg PO TID PRN (Reason: Muscle Spasm) Qty: 10 0RF Patient Comments: PT STATES DOES NOT TYPICALLY TAKE TID quetiapine 100 mg tablet 100 mg PO QHS buspirone 5 mg tablet 5 mg PO TID pregabalin 200 mg capsule 200 mg PO Q8H Xarelto 20 mg tablet 20 mg PO DAILY Qty: 30 0RF Rx Instructions: must administer with evening meal venlafaxine 150 mg capsule,extended release 24hr 150 mg PO DAILY potassium chloride [K-Tab] 20 mEq tablet extended release 20 meq PO DAILY Referrals / Follow Up: Michelle Moon, [employer] [Primary Care Provider] - Within 1 Month Disposition Disposition (needs filled in before D/C Order can be placed): Home, Self Care Charges/Coding Visit Charges Inpatient E&M: 50108 Disch Hosp >30min
[2024-01-17] MEDS: Rivaroxaban 20 MG Tablet PO (16:02)
== END 2024-01-17 16:22 | disposition home or self-care (01) | DRG 203 ==
LOC: ED 01-16 00:20 → ICU 01-16 01:48
PROVIDERS: Admitting Provider Internal Medicine; Emergency Provider Emergency Medicine; PCP Nurse Practitioner Family; Visit Provider Internal Medicine
DX: J45.909 Unspecified asthma, uncomplicated (principal); F31.9 Bipolar disorder, unspecified; E66.01 Morbid (severe) obesity due to excess calories; N18.32 Chronic kidney disease, stage 3b; G25.81 Restless legs syndrome; G47.33 Obstructive sleep apnea (adult) (pediatric); G89.29 Other chronic pain; R09.02 Hypoxemia; Z68.39 Body mass index [BMI] 39.0-39.9, adult; Z79.01 Long term (current) use of anticoagulants; Z79.891 Long term (current) use of opiate analgesic; Z79.899 Other long term (current) drug therapy; Z86.711 Personal history of pulmonary embolism; Z86.718 Personal history of other venous thrombosis and embolism; Z91.410 Personal history of adult physical and sexual abuse; N17.9 Acute kidney failure, unspecified; R55 Syncope and collapse
CPT/HCPCS: 71045; 71046; 71250; 80048; 83605; 83880; 84484; 85025; 87040; 87631; 87633; 93005; 94640; 94660; 94668; 96361; 96365; 96366; 96367; 96375; 96376; 99221; 99285; J7030; J7040; A4216; G0378